=== PATIENT | male | born 1930 | race Caucasian/White ===

== ENCOUNTER 2018-07-29 19:17 | Inpatient (IN) ==
[2018-07-29 20:04] LABS: Bilirubin,Urine Negative (Negative); Clarity,Urine Slightly Cloudy (Clear); Color,Urine Yellow (Yellw/Straw); Glucose,Urine (UA) 100 mg/dL (Negative); Leukocyte Esterase,Urine Moderate (Negative); Nitrite,Urine Negative (Negative); PH,Urine 5.5 (5.0-8.5); Specific Gravity,Urine Greater/Equal 1.030 (1.002-1.035); Urobilinogen,Urine 0.2 mg/dL (Less than 2)
[2018-07-29 20:10] LABS: RBC,Urine 51-189 /hpf (0-3); WBC,Urine 21-50 /hpf (0-5)
[2018-07-29 20:11] LABS: Amorphous Sediment,Urine Few /hpf; Bacteria,Urine Few /hpf; Mucus,Urine Few /lpf (Occasional)
[2018-07-29] MEDS ORDERED: Morphine Inj 4 MG/ML Vial IV.PUSH ONE (22:33)
--- NOTE | 2018-07-29 22:44 | ED ---
HPI General Chief complaint: Abdominal Pain Stated complaint: LOWER ABD PAIN XTODAY Time Seen by Provider: 07/29/18 22:24 Source: patient and family Mode of arrival: ambulatory Limitations: no limitations History of Present Illness HPI narrative: 88-year-old male here with his for evaluation of abdominal pain. The patient reports sudden onset of abdominal pain at around 5:30 PM today. The pain is around his mid to lower abdomen, described as pressure, severe, constant, worse with movements and palpation. He has felt nauseous but has not vomited. He reports that yesterday he had several episodes of loose bowel movements. He is unsure if there was melena or hematochezia. He states that today he has been unable to have a bowel movement. History of appendectomy when he was a teenager. No other abdominal surgeries. No fevers or chills. No dysuria or hematuria. Related Data Home Medications Medication Instructions Recorded Confirmed amlodipine 10 mg PO DAILY 07/29/18 07/29/18 aspirin [Aspirin Low Dose] 81 mg PO DAILY 07/29/18 07/29/18 budesonide-formoterol [Symbicort] 2 puff INHALATION BID 07/29/18 07/29/18 cholecalciferol (vitamin D3) 1,000 unit PO DAILY 07/29/18 07/29/18 [Vitamin D3] dextran 70-hypromellose 1 drp OPHTHALMIC (EYE) Q12H PRN 07/29/18 07/29/18 [Artificial Tears (PF)] glipizide 10 mg PO BID 07/29/18 07/29/18 hydrochlorothiazide 25 mg PO DAILY 07/29/18 07/29/18 insulin glargine [Lantus U-100 10 unit SUBCUT DAILY 07/29/18 07/29/18 Insulin] loratadine 10 mg PO DAILY 07/29/18 07/29/18 lovastatin 10 mg PO DAILY 07/29/18 07/29/18 multivitamin with minerals 1 tab PO DAILY 07/29/18 07/29/18 valsartan 160 mg PO DAILY 07/29/18 07/29/18 Allergies Allergy/AdvReac Type Severity Reaction Status Date / Time lisinopril Allergy Severe Shortness Verified 07/30/18 00:15 of Breath simvastatin Allergy Intermediate muscle Verified 07/30/18 00:15 aches Review of Systems ROS: all other systems reviewed are negative [facility] Medical History Medical History Diabetes (Acute) Social History Social History Substance History: No History of Abuse Smoking Status: Former smoker Tobacco Type: Cigarettes How Often Do You Have a Drink Containing Alcohol: Monthly or less Recent Travel in [facility] within the Last 8 Weeks: No Recent Out of Country Travel within the Last 8 Weeks: No Exam Narrative Exam Narrative: GENERAL: Well-developed, well-nourished, comfortable, no acute distress. SKIN: Focused skin assessment warm/dry. No rash. HEAD: Atraumatic. Normocephalic. EYES: Pupils equal and round. No scleral icterus. No injection or drainage. ENT: Mucous membranes pink and moist. NECK: Trachea midline. No JVD. CARDIOVASCULAR: Regular rate and rhythm. RESPIRATORY: No accessory muscle use. Clear to auscultation. Breath sounds equal bilaterally. GASTROINTESTINAL: Abdomen soft, mild distention, moderate diffuse tenderness, no peritoneal signs, normal bowel sounds, large ventral hernia, no other hernias. RECTUM: Heme negative brown stool. : Normal exam. No swelling or masses. No hernias. No skin color changes. MUSCULOSKELETAL: No obvious deformities. No clubbing. No cyanosis. No edema. NEUROLOGICAL: Awake and alert. No obvious cranial nerve deficits. Motor grossly within normal limits. Normal speech. PSYCHIATRIC: Appropriate mood and affect; insight and judgment normal. Course Initial Documented Vital Signs Temperature 98.8 F 07/29/18 19:36 Pulse Rate 77 07/29/18 19:36 Respiratory Rate 18 07/29/18 19:36 Blood Pressure 181/81 H 07/29/18 19:36 Pulse Oximetry 96 07/29/18 19:36 Last Documented Vital Signs Temperature 98.8 F 07/29/18 19:36 Pulse Rate 90 07/30/18 01:00 Respiratory Rate 16 07/30/18 01:00 Blood Pressure 170/77 H 07/30/18 01:00 Pulse Oximetry 95 07/30/18 01:00 Sign Out Sign Out Data: Patient Sign Out occurred on 07/30/18 at 02:08. Patient's care was discussed, and care was transferred from Keith Pradhan MD to Mague Wells MD. Sign Out Comment: Follow-up with CT abdomen pelvis and disposition. Last updated by Keith Pradhan MD at 07/30/18 00:03 Post-Handoff Eval: The patient's case was checked out to me by Dr. Pradhan at the conclusion of his shift. Please see his complete history and physical. The patient was pending CT scan of the abdomen and pelvis. The patient presented with lower abdominal pain. The patient was noted to have a urinary tract infection. The patient required multiple doses of pain medication for improvement in his pain. The patient was noted to have a leukocytosis of 24.4. Given the patient's urinary tract infection, the patient was given Rocephin [address] scan of the abdomen and pelvis showed a 3 mm stone of the mid left ureter, causing mild obstructive uropathy, including perinephric and periureteral edema. Given the patient's leukocytosis there is a concern for infection with stone. The patient will be admitted to the hospital for continued evaluation and treatment. The patient's results were discussed with the patient, including the plan of care. I explained that further testing and/ or monitoring is indicated based on the patient's history, examination, and/ or laboratory findings. Therefore, I recommended admission for additional evaluation. The patient expressed understanding and was agreeable with this plan. The patient was admitted to the hospital in stable condition and sent to a bed under the care of the [facility] service. Medical Decision Making MDM Narrative Medical decision making narrative: UA was performed in triage and was resulted before the patient was brought back to an exam room. UA suggestive of UTI with moderately large occult blood, 51-189 RBCs, 21-50 WBCs, few WBC clumps, few bacteria, therefore the patient was given 1 g of IV Rocephin shortly after I evaluated him. CBC is remarkable for WBC 24.4 with 92% neutrophils. CMP is remarkable for BUN 35, creatinine 2.1, GFR 30 which is slightly worse than his baseline. Random glucose is 265. Lactic acid is 1.3. Patient was given 4 mg of IV morphine without any relief in his pain. He was then given 1 mg of IV Dilaudid with significant improvement in his pain. On reassessment he does have slight abdominal tenderness which is mainly over his left lower quadrant. There are no peritoneal signs. At approximately midnight at the end of my shift the patient was signed out to Dr. Wells to follow-up with CT abdomen pelvis and disposition. Medical Screen Exam Complete: Yes Emergency Medical Condition: Yes Differential Diagnosis Differential Diagnosis: Colitis, diverticulitis, UTI, cystitis, mesenteric ischemia Lab Data Result diagrams: 07/29/18 22:40 07/29/18 22:40 Lab Results 07/29/18 07/29/18 07/29/18 Range/Units 19:49 22:40 22:40 CBC w Diff WBC (4.0-11.0) th/mm3 RBC (4.50-5.90) mil/mm3 Hgb (13.0-17.0) gm/dL Hct (39.0-51.0) % MCV (80.0-100.0) fL MCH (27.0-34.0) pg MCHC (32.0-36.0) % RDW (11.6-17.2) % Plt Count (150-450) th/mm3 MPV (7.0-11.0) fL Neut % (Auto) (16.0-70.0) % Lymph % (Auto) (9.0-44.0) % [place] % (Auto) (0.0-8.0) % Eos % (Auto) (0.0-4.0) % Baso % (Auto) (0.0-2.0) % Neut # (Auto) (1.8-7.7) th/mm3 Lymph # (Auto) (1.0-4.8) th/mm3 [place] # (Auto) (0.0-0.9) th/mm3 Eos # (Auto) (0.0-0.4) th/mm3 Baso # (Auto) (0.0-0.2) th/mm3 WBC Differential Diff Scan Differential Comment Platelet Estimate (Normal) Platelet Morphology (Normal) RBC Morphology (Normal) PT 9.9 (9.8-11.6) sec INR 1.0 Ratio APTT 25.8 (24.3-30.1) sec Sodium (136-145) meq/L Potassium (3.5-5.1) meq/L Chloride (98-107) meq/L Carbon Dioxide (21.0-32.0) meq/L Anion Gap (5-15) meq/L BUN (7-18) mg/dL Creatinine (0.60-1.30) mg/dL Estimated GFR (>89) mL/min Random Glucose (74-106) mg/dL Lactic Acid 1.3 (0.4-2.0) mmol/L Calcium (8.5-10.1) mg/dL Magnesium (1.5-2.5) mg/dL Total Bilirubin (0.2-1.0) mg/dL AST (15-37) U/L ALT (12-78) U/L Alkaline Phosphatase (45-117) U/L Total Protein (6.4-8.2) g/dL Albumin (3.4-5.0) g/dL Lipase (73-393) U/L Urine Color Yellow (Yellw/Straw) Urine Clarity Slightly cloudy (Clear) Urine pH 5.5 (5.0-8.5) Ur Specific [place] Greater/equal 1.030 (1.002-1.035) Urine Protein 100 H (Neg-Trace) mg/dL Urine Glucose (UA) 100 H (Negative) mg/dL Urine Ketones Negative (Negative) mg/dL Urine Occult Blood Large H (Negative) Urine Nitrate Negative (Negative) Urine Bilirubin Negative (Negative) Urine Urobilinogen 0.2 (Less than 2) mg/dL Ur Leukocyte Esterase Moderate H (Negative) Urine RBC 51-189 H (0-3) /hpf Urine WBC 21-50 H (0-5) /hpf Urine WBC Clumps Few H (None) Amorphous Sediment Few H (None) /hpf Urine Bacteria Few H (None) /hpf Urine Mucus Few H (Occasional) /lpf Micro UA Comment Culture indicated Ur Microscopic Review Microscopic reviewed Urine Culture Comments Culture indicated 07/29/18 07/29/18 Range/Units 22:40 22:40 CBC w Diff Slide review pending WBC 24.4 H (4.0-11.0) th/mm3 RBC 4.60 (4.50-5.90) mil/mm3 Hgb 15.3 (13.0-17.0) gm/dL Hct 44.6 (39.0-51.0) % MCV 96.9 (80.0-100.0) fL MCH 33.3 (27.0-34.0) pg MCHC 34.4 (32.0-36.0) % RDW 15.8 (11.6-17.2) % Plt Count 380 (150-450) th/mm3 MPV 9.2 (7.0-11.0) fL Neut % (Auto) 91.7 H (16.0-70.0) % Lymph % (Auto) 5.3 L (9.0-44.0) % [place] % (Auto) 1.8 (0.0-8.0) % Eos % (Auto) 0.5 (0.0-4.0) % Baso % (Auto) 0.7 (0.0-2.0) % Neut # (Auto) 22.4 H (1.8-7.7) th/mm3 Lymph # (Auto) 1.3 (1.0-4.8) th/mm3 [place] # (Auto) 0.4 (0.0-0.9) th/mm3 Eos # (Auto) 0.1 (0.0-0.4) th/mm3 Baso # (Auto) 0.2 (0.0-0.2) th/mm3 WBC Differential . Diff Scan Auto diff confirmed Differential Comment . Platelet Estimate Normal (Normal) Platelet Morphology Normal (Normal) RBC Morphology Normal (Normal) PT (9.8-11.6) sec INR Ratio APTT (24.3-30.1) sec Sodium 136 (136-145) meq/L Potassium 4.8 (3.5-5.1) meq/L Chloride 106 (98-107) meq/L Carbon Dioxide 22.0 (21.0-32.0) meq/L Anion Gap 8 (5-15) meq/L BUN 35 H (7-18) mg/dL Creatinine 2.10 H (0.60-1.30) mg/dL Estimated GFR 30 L (>89) mL/min Random Glucose 265 H (74-106) mg/dL Lactic Acid (0.4-2.0) mmol/L Calcium 8.8 (8.5-10.1) mg/dL Magnesium 2.3 (1.5-2.5) mg/dL Total Bilirubin 0.6 (0.2-1.0) mg/dL AST 10 L (15-37) U/L ALT 22 (12-78) U/L Alkaline Phosphatase 108 (45-117) U/L Total Protein 7.7 (6.4-8.2) g/dL Albumin 4.1 (3.4-5.0) g/dL Lipase 89 (73-393) U/L Urine Color (Yellw/Straw) Urine Clarity (Clear) Urine pH (5.0-8.5) Ur Specific [place] (1.002-1.035) Urine Protein (Neg-Trace) mg/dL Urine Glucose (UA) (Negative) mg/dL Urine Ketones (Negative) mg/dL Urine Occult Blood (Negative) Urine Nitrate (Negative) Urine Bilirubin (Negative) Urine Urobilinogen (Less than 2) mg/dL Ur Leukocyte Esterase (Negative) Urine RBC (0-3) /hpf Urine WBC (0-5) /hpf Urine WBC Clumps (None) Amorphous Sediment (None) /hpf Urine Bacteria (None) /hpf Urine Mucus (Occasional) /lpf Micro UA Comment Ur Microscopic Review Urine Culture Comments Imaging Data Radiologist's impression: Abdomen/Pelvis CT 07/30/18 00:12 CONCLUSION: 1. 3 mm stone of the mid left ureter causing mild obstructive uropathy, including perinephric and periureteral edema. 2. Nonobstructing stone and benign appearing cyst seen of the left kidney lower pole as well. 3. No organized fluid. No abscess. 4. Cholelithiasis. 5. Aortoiliac atherosclerosis. No aneurysm. Discharge Plan Discharge Disposition Patient Disposition: 30 Still Patient Discharge Details Diagnosis: Urinary tract infection, Calculus, ureteral, Leukocytosis Physicians Team ED Provider: Mague Wells Primary Care Provider: [facility] /Orders / Referrals /Forms Prescriptions: No Action insulin glargine [Lantus U-100 Insulin] 100 unit/mL Solution 10 unit SUBCUT DAILY RF: 0 glipizide 10 mg Tablet 10 mg PO BID RF: 0 lovastatin 10 mg Tablet 10 mg PO DAILY RF: 0 aspirin [Aspirin Low Dose] 81 mg Tablet,Delayed Release (Dr/Ec) 81 mg PO DAILY RF: 0 multivitamin with minerals Tablet Extended Release 1 tab PO DAILY RF: 0 amlodipine 10 mg Tablet 10 mg PO DAILY RF: 0 hydrochlorothiazide 25 mg Tablet 25 mg PO DAILY RF: 0 valsartan 160 mg Tablet 160 mg PO DAILY RF: 0 cholecalciferol (vitamin D3) [Vitamin D3] 1,000 unit Capsule 1,000 unit PO DAILY RF: 0 dextran 70-hypromellose [Artificial Tears (PF)] Dropperette 1 drp OPHTHALMIC (EYE) Q12H PRN (Reason: Dry Eye(S)) RF: 0 budesonide-formoterol [Symbicort] 160-4.5 mcg/actuation Hfa Aerosol Inhaler 2 puff INHALATION BID RF: 0 loratadine 10 mg Capsule 10 mg PO DAILY RF: 0 Discharge Interventions Interventions: Vital Signs Last Done: 07/30/18 01:00 Status ED Status: With Doctor
[2018-07-29] MEDS ORDERED: Sod Chloride 0.9% Inj 1,000 ML IV.CONT SCH (22:45)
[2018-07-29 22:57] LABS: Baso # (Auto) 0.2 th/mm3 (0.0-0.2); Baso % (Auto) 0.7 % (0.0-2.0); Eos # (Auto) 0.1 th/mm3 (0.0-0.4); Eos % (Auto) 0.5 % (0.0-4.0); Hematocrit 44.6 % (39.0-51.0); Hemoglobin 15.3 gm/dL (13.0-17.0); Lymph # (Auto) 1.3 th/mm3 (1.0-4.8); Lymph % (Auto) 5.3 % (9.0-44.0); Mean Corpuscular HGB Conc 34.4 % (32.0-36.0); Mean Corpuscular Hemoglobin 33.3 pg (27.0-34.0); Mean Corpuscular Volume 96.9 fL (80.0-100.0); Mean Platelet Volume 9.2 fL (7.0-11.0); Mono # (Auto) 0.4 th/mm3 (0.0-0.9); Mono % (Auto) 1.8 % (0.0-8.0); Neut # (Auto) 22.4 th/mm3 (1.8-7.7); Neut % (Auto) 91.7 % (16.0-70.0); Platelet Count 380 th/mm3 (150-450); Red Cell Distribution Width 15.8 % (11.6-17.2); White Blood Count 24.4 th/mm3 (4.0-11.0)
[2018-07-29 23:03] LABS: Chloride 106 meq/L (98-107); Potassium 4.8 meq/L (3.5-5.1); Sodium 136 meq/L (136-145)
[2018-07-29 23:07] LABS: Albumin 4.1 g/dL (3.4-5.0); Anion Gap 8 meq/L (5-15); Blood Urea Nitrogen 35 mg/dL (7-18); Calcium 8.8 mg/dL (8.5-10.1); Glucose,Random 265 mg/dL (74-106); Lipase 89 U/L (73-393); Magnesium 2.3 mg/dL (1.5-2.5)
[2018-07-29 23:09] LABS: Activated Partial Thrombo Time 25.8 sec (24.3-30.1); Prothrombin Time 9.9 sec (9.8-11.6)
[2018-07-29 23:10] LABS: Alanine Aminotransferase 22 U/L (12-78); Aspartate Aminotransferase 10 U/L (15-37); Glomerular Filtration Rate 30 mL/min (>89)
[2018-07-29] MEDS ORDERED: HYDROmorphone PF Inj 2 MG/ML Vial IV.PUSH ONE (23:11)
[2018-07-29 23:12] LABS: Total Protein 7.7 g/dL (6.4-8.2)
[2018-07-29 23:13] LABS: Alkaline Phosphatase 108 U/L (45-117)
[2018-07-29 23:14] LABS: Platelet Estimate Normal (Normal); Platelet Morphology Normal (Normal); RBC Morphology Normal (Normal)
[2018-07-30] MEDS ORDERED: Diatrizoate Meglum/Diatrizoate Sod Liq 9 ML UDC PO ONE (00:12)
--- NOTE | 2018-07-30 01:53 | CT ---
EXAM DATE: 07/30/2018 1:40 AM EDT AGE/SEX: 88 years / Male INDICATIONS: Lower abdominal pain. Evaluate for diverticulitis versus abscess. CLINICAL DATA: This is the patient's initial encounter. Patient reports that signs and symptoms have been present for 2 days and indicates a pain score of 10/10. MEDICAL/SURGICAL HISTORY: Diabetes. Appendectomy. RADIATION DOSE: 16.68 CTDI (mGy) COMPARISON: No prior exams available for comparison. TECHNIQUE: Multiple contiguous axial images were obtained through the abdomen. Images were obtained using multiple row detector helical technique. Using automated exposure control and adjustment of the mA and/or kV according to patient size, radiation dose was kept as low as reasonably achievable to o btain optimal diagnostic quality images. DICOM format image data is available electronically for rev iew and comparison. FINDINGS: There is a 3 mm stone in the mid left ureter at the level of L5. There is mild hydronephrosis and hyd roureter. There is left perinephric and periureteral edema. There is no organized fluid. Approximatel y 4 mm nonobstructing stone seen of the left lower pole. There is also a 1 cm benign appearing left l ower pole cyst. Noncontrast appearance of the right kidney is within normal limits. Noncontrast appearance of the liver, spleen, pancreas and adrenal glands is within normal limits. No obstruction or acute inflammatory changes are seen of the gastrointestinal tract. No free or loculate d fluid. No lymphadenopathy. No free air. Tortuosity and atherosclerosis seen of the abdominal aorta and iliac arteries. No aneurysm. Numerous tiny gravel-like stones are seen dependently within the gallbladder. No duct stone or ductal dilatation seen. Radiation seeds are seen in the prostate. Mild atelectasis of the visualized lung bases. No acute bony abnormalities are demonstrated. CONCLUSION: 1. 3 mm stone of the mid left ureter causing mild obstructive uropathy, including perinephric and pe riureteral edema. 2. Nonobstructing stone and benign appearing cyst seen of the left kidney lower pole as well. 3. No organized fluid. No abscess. 4. Cholelithiasis. 5. Aortoiliac atherosclerosis. No aneurysm. Electronically signed by: Sarkis Hicks MD 07/30/2018 1:51 AM EDT
[2018-07-30] MEDS ORDERED: Acetaminophen 325 MG Tablet PO PRN (02:41)
[2018-07-30] MEDS ORDERED: HYDROmorphone PF Inj 0.5 MG/0.5 ML Syringe IV.PUSH PRN (02:44)
[2018-07-30] MEDS: Sod Chloride 0.9% Inj 1,000 ML IV.CONT SCH ×3 (03:09→22:32)
[2018-07-30] MEDS ORDERED: HYDROmorphone PF Inj 2 MG/ML Vial IV.PUSH PRN (03:39)
--- NOTE | 2018-07-30 06:38 | CT ---
EXAM DATE: 07/30/2018 6:33 AM EDT AGE/SEX: 88 years / Male INDICATIONS: Altered mental status. Numbness in hands. CLINICAL DATA: This is the patient's initial encounter. Patient reports that signs and symptoms have been present for 1 day and indicates a pain score of 0/10. MEDICAL/SURGICAL HISTORY: Diabetes. None. RADIATION DOSE: 57.80 CTDI (mGy) COMPARISON: [facility], CT BRAIN W/O CONTRAST, 12/05/2013. . TECHNIQUE: CT of the head without contrast. Using automated exposure control and adjustment of the mA and/or kV according to patient size, radiation dose was kept as low as reasonably achievable to ob tain optimal diagnostic quality images. DICOM format image data is available electronically for revi ew and comparison. FINDINGS: Cerebrum: The ventricles are normal for age. No evidence of midline shift, mass lesion, hemorrhage or acute infarction. No extraaxial fluid collections are seen. Posterior Fossa: The cerebellum and brainstem are intact. The 4th ventricle is midline. The cerebe llopontine angle is unremarkable. Extracranial: Mucoperiosteal thickening seen of the visualized ethmoid and maxillary air cells. Skull: The calvaria is intact. No evidence of skull fracture. CONCLUSION: 1. No acute intracranial abnormality demonstrated. 2. Chronic appearing ethmoid and maxillary sinusitis. . Electronically signed by: Sarkis Hicks MD 07/30/2018 6:36 AM EDT
[2018-07-30] MEDS: Budesonide-Formoterol 160/4.5 MCG 6 GM Inhaler INH SCH ×2 (09:40→20:28)
[2018-07-30] MEDS: amLODIPine 10 MG Tablet PO SCH (09:41)
--- NOTE | 2018-07-30 09:59 | P.HPIM ---
History of Present Illness Primary Care Physician: [facility] History of Present Illness: 88-year-old male with history of IDDM, HTN, HLD, prostate cancer, and CKD presented on 07/29 with abdominal pain. The patient states that yesterday evening he noted sudden onset of mid and left lower quadrant abdominal pain that was severe and constant. Pain is exacerbated by movement. He states he felt a little nauseous but had no vomiting but does note he had several episodes of diarrhea 2 days ago as well. He denies black or bloody stools. He denies any dysuria, urgency, hesitancy, or hematuria. On my evaluation this morning (07/30), the patient was noted to have some sort of jaw tremor oropharyngeal dystonic reaction. This was reported by nursing at around 5:30 AM this morning. Because of the movements the patient has been having difficulty speaking fluently. He denies any confusion, blurry vision, headache, paresthesias, or unilateral weakness. His was present at the bedside states that this is new for him. The patient is unsure if it is a reaction from the Rocephin he received. He does not take any antipsychotics or have been given any in the hospital. PMH: IDDM, HTN, HLD, prostate CA, CKD (unknown stage or baseline creatinine) Surgical hx: parotid gland tumor removed, prostate seed Family hx: sister with DM Social hx: lives with , occasionally drinks a beer, quit smoking 1978 Inpatient Certification I certify that the inpatient services were ordered in accordance with Medicare regulations governing the order. This includes certification that hospital inpatient services are reasonable and necessary and in the case of services not specified as inpatient-only under 42 CFR 419.22(n), that they are appropriately provided as inpatient services in accordance to with the 2-midnight benchmark under 43 CFR 412.3(e) Estimated LOS: 2-3 days Plans after D/C: home vs. C - Diagnosis (1) Obstructive uropathy (2) Urinary tract infection (3) Calculus, ureteral Review of Systems All other systems reviewed negative except as stated in HPI PMFSH - History History Provided By: Patient - Medical History Medical History: Medical History (Last Updated 07/30/18 @ 13:49 by Mague Estrada MD) CKD (chronic kidney disease) Diabetes Hyperlipidemia Hypertension Prostate cancer - Family History Family History: Family History (Last Updated 07/30/18 @ 13:49 by Mague Estrada MD) Sister Diabetes - Social History I have reviewed the patient's Social History: Yes - Tobacco History Second Hand Smoke Exposure: No Tobacco Use In Past 30 Days: No Smoking Status: Never smoker Tobacco Type: Cigarettes - Alcohol History How Often Do You Have a Drink Containing Alcohol: Never - Substance Use History Substance History: No History of Abuse - Travel History Recent Travel in the [place] Within the Last 8 Weeks: No Recent Travel Out of the Country Within the Last 8 Weeks: No - Immunization History Tetanus Immunization: Unsure Medications and Allergies Active Medications: Active Medications Acetaminophen (Tylenol) 650 mg PO Q4H PRN PRN Reason: Temp > 100.4 Amlodipine Besylate (Norvasc) 10 mg PO DAILY [facility] Last Admin: 07/30/18 09:41 Dose: 10 mg Aspirin (Ecotrin) 81 mg PO DAILY [facility] Last Admin: 07/30/18 09:43 Dose: Not Given Budesonide/Formoterol Fumarate (Symbicort 160/4.5 Mcg Inh) 2 puff INH BID [facility] Last Admin: 07/30/18 09:40 Dose: 2 puff Clonidine HCl (Catapres) 0.1 mg PO Q6H PRN PRN Reason: SBP>180, DBP>100, HR>65 Last Admin: 07/30/18 07:59 Dose: 0.1 mg Hydromorphone HCl (Dilaudid Pf Inj) 1 mg IV.PUSH Q4H PRN PRN Reason: pain 1 to 10 Sodium Chloride (Ns Inj) 1,000 mls @ 100 mls/hr IV.CONT .Q10H [facility] Last Infusion: 07/30/18 03:20 Dose: 100 mls/hr Ceftriaxone Sodium 1,000 mg/ (Sodium Chloride) 100 mls @ 200 mls/hr IV.SIG Q24H [facility] Last Admin: 07/30/18 09:43 Dose: Not Given Ondansetron HCl (Zofran Inj) 4 mg IV.PUSH Q6H PRN PRN Reason: NAUSEA OR VOMITING Pravastatin Sodium (Pravachol) 10 mg PO DAILY [facility] Last Admin: 07/30/18 09:41 Dose: 10 mg Sodium Chloride (Ns Flush) 2 ml IV.FLUSH PRN PRN PRN Reason: FLUSH AFTER USING IV ACCESS Allergies Allergy/AdvReac Type Severity Reaction Status Date / Time lisinopril Allergy Severe Shortness Verified 07/30/18 00:15 of Breath simvastatin Allergy Intermediate muscle Verified 07/30/18 00:15 aches Home Medications Medication Instructions Recorded Confirmed Type amlodipine 10 mg PO DAILY 07/29/18 07/29/18 History aspirin [Aspirin Low Dose] 81 mg PO DAILY 07/29/18 07/29/18 History budesonide-formoterol [Symbicort] 2 puff INHALATION BID 07/29/18 07/29/18 History cholecalciferol (vitamin D3) 1,000 unit PO DAILY 07/29/18 07/29/18 History [Vitamin D3] dextran 70-hypromellose 1 drp OPHTHALMIC (EYE) Q12H PRN 07/29/18 07/29/18 History [Artificial Tears (PF)] glipizide 10 mg PO BID 07/29/18 07/29/18 History hydrochlorothiazide 25 mg PO DAILY 07/29/18 07/29/18 History insulin glargine [Lantus U-100 10 unit SUBCUT DAILY 07/29/18 07/29/18 History Insulin] loratadine 10 mg PO DAILY 07/29/18 07/29/18 History lovastatin 10 mg PO DAILY 07/29/18 07/29/18 History multivitamin with minerals 1 tab PO DAILY 07/29/18 07/29/18 History valsartan 160 mg PO DAILY 07/29/18 07/29/18 History Exam Vital signs: Vital Signs 07/29/18 19:36 07/29/18 23:00 07/30/18 00:00 Temperature 98.8 F Pulse Rate 77 83 84 Respiratory Rate 18 17 17 Blood Pressure 181/81 H 183/83 H 163/73 H Pulse Oximetry 96 96 96 07/30/18 00:20 07/30/18 01:00 07/30/18 02:42 Temperature Pulse Rate 90 80 Respiratory Rate 18 16 18 Blood Pressure 170/77 H 170/70 H Pulse Oximetry 95 95 07/30/18 04:00 07/30/18 05:37 07/30/18 06:06 Temperature 97.3 F L Pulse Rate 93 H 94 H Respiratory Rate 18 18 Blood Pressure 190/93 H 172/93 H Pulse Oximetry 95 07/30/18 08:00 Temperature 97.8 F Pulse Rate 74 Respiratory Rate 20 Blood Pressure 191/95 H Pulse Oximetry 97 Intake & Output 07/29/18 07/30/18 07/30/18 18:59 06:59 18:59 Intake Total 300 / 300 0 / 0 Output Total 0 / 0 Balance 300 / 300 0 / 0 Weight 82 kg Intake: IV 100 / 100 Rocephin Inj 1,000 MG In NS Inj 100 / 100 100 ML @ 200 mls/hr IV.SIG ONCE ONE Rx#:[id number] Oral 200 / 200 0 / 0 Output: Urine 0 / 0 Other: # Voids 1 Date of Last Bowel Movement 07/26/18 Weight On Admission 82 kg Narrative: GENERAL: WN, WD elderly male resting in bed in NAD. SKIN: Warm and dry without rash or jaundice. HEENT: AT/NC. EOMI. Pupils equal and round. MMM. NECK: Supple no tender LAD or JVD. HEART: RRR no m/r/g. LUNGS: CTAB without wheezes or crackles. ABDOMEN: +BS, soft, ND, TTP over palpation EXTREMITIES: No LE edema. 2+ pedal pulses. NEURO: Awake and alert. Spasticity of oropharyngeal and neck muscles with some dystonic appearing movements and tremors. UE and LE strength 5/5. No pronator drift. CN II-XII intact. Results - Labs CBC & Chem 7: 07/30/18 10:40 07/30/18 10:40 Labs: Short CBC 07/29/18 Range/Units 22:40 WBC 24.4 H (4.0-11.0) th/mm3 Hgb 15.3 (13.0-17.0) gm/dL Hct 44.6 (39.0-51.0) % Plt Count 380 (150-450) th/mm3 BMP 07/29/18 22:40 Sodium 136 Potassium 4.8 Chloride 106 Carbon Dioxide 22.0 BUN 35 H Creatinine 2.10 H Calcium 8.8 Liver Function 07/29/18 Range/Units 22:40 Total Bilirubin 0.6 (0.2-1.0) mg/dL AST 10 L (15-37) U/L ALT 22 (12-78) U/L Alkaline Phosphatase 108 (45-117) U/L Albumin 4.1 (3.4-5.0) g/dL Urine 07/29/18 Range/Units 19:49 Urine Color Yellow (Yellw/Straw) Urine Clarity Slightly cloudy (Clear) Urine pH 5.5 (5.0-8.5) Ur Specific [place] Greater/equal 1.030 (1.002-1.035) Urine Protein 100 H (Neg-Trace) mg/dL Urine Glucose (UA) 100 H (Negative) mg/dL - Imaging Impressions Abdomen/Pelvis CT 07/30/18 00:12 CONCLUSION: 1. 3 mm stone of the mid left ureter causing mild obstructive uropathy, including perinephric and periureteral edema. 2. Nonobstructing stone and benign appearing cyst seen of the left kidney lower pole as well. 3. No organized fluid. No abscess. 4. Cholelithiasis. 5. Aortoiliac atherosclerosis. No aneurysm. Head CT 07/30/18 06:00 CONCLUSION: 1. No acute intracranial abnormality demonstrated. 2. Chronic appearing ethmoid and maxillary sinusitis. . Caprini VTE Risk Assessment Caprini VTE Risk Assessment: Moderate/High Risk (score >= 2) Caprini Risk Assessment Model: Point Value = 1 Point Value = 2 Point Value = 3 Point Value = 5 Age 41-60 Minor surgery BMI > 25 kg/m2 Swollen legs Varicose veins or History of unexplained or recurrent spontaneous Oral contraceptives or hormone replacement Sepsis (< 1 month) Serious lung disease, including pneumonia (< 1 month) Abnormal pulmonary function Acute myocardial infarction Congestive heart failure (< 1 month) History of inflammatory bowel disease Medical patient at bed rest Age 61-74 Arthroscopic surgery Major open surgery (> 45 min) Laparoscopic surgery (> 45 min) Malignancy Confined to bed (> 72 hours) Immobilizing plaster cast Central venous access Age >= 75 History of VTE Family history of VTE Factor V Leiden Prothrombin [id number] Lupus anticoagulant Anticardiolipin antibodies Elevated serum homocysteine Heparin-induced thrombocytopenia Other congenital or acquired thrombophilia Stroke (< 1 month) Elective arthroplasty Hip, pelvis, or leg fracture Acute spinal cord injury (< 1 month) Prophylaxis Regimen: Total Risk Factor Score Risk Level Prophylaxis Regimen 0-1 Low Early ambulation 2 Moderate Order ONE of the following: *Sequential Compression Device (SCD) *Heparin 5000 units SQ BID 3-4 Higher Order ONE of the following medications: *Heparin 5000 units SQ TID *Enoxaparin/Lovenox 40 mg SQ daily (WT < 150 kg, CrCl > 30 mL/min) *Enoxaparin/Lovenox 30 mg SQ daily (WT < 150 kg, CrCl > 10-29 mL/min) *Enoxaparin/Lovenox 30 mg SQ BID (WT < 150 kg, CrCl > 30 mL/min) AND/OR *Sequential Compression Device (SCD) 5 or more Highest Order ONE of the following medications: *Heparin 5000 units SQ TID (Preferred with Epidurals) *Enoxaparin/Lovenox 40 mg SQ daily (WT < 150 kg, CrCl > 30 mL/min) *Enoxaparin/Lovenox 30 mg SQ daily (WT < 150 kg, CrCl > 10-29 mL/min) *Enoxaparin/Lovenox 30 mg SQ BID (WT < 150 kg, CrCl > 30 mL/min) AND *Sequential Compression Device (SCD) Assessment and Plan - Assessment (1) Obstructive uropathy Code(s): N13.9 - Obstructive and reflux uropathy, unspecified Status: Acute (2) Urinary tract infection Code(s): N39.0 - Urinary tract infection, site not specified Status: Acute (3) Calculus, ureteral Code(s): N20.1 - Calculus of ureter Status: Acute - Plan 88-year-old male with history of IDDM, HTN, HLD, prostate cancer, and CKD presented on 07/29 with abdominal pain. U/A with evidence of infection and CT A/P showed left ureteral stone with mild obstructive uropathy. 1. UTI - U/A with leukocyte esterase, protein, blood, bacteria - Urine culture pending - White count 24.4 - No fever or lactic acidosis, not meeting sepsis criteria - Was started on Rocephin but then patient developed an oropharyngeal dystonic type reaction so antibiotic was changed to Zosyn - Continue to follow cultures 2. Urolithiasis with mild obstructive uropathy - CT A/P with 3 mm left ureteral stent with associated mild obstructive uropathy - IV fluids - Pain control - Antiemetics - Flomax - Given some degree of obstruction and associated UTI will consult urology 3. Involuntary mouth movements, dystonia, jaw tremors - Began around 5:30AM this morning, had received Dilaudid and Rocephin prior - Unlikely to see that kind of reaction with Rocephin but possible with Dilaudid - D/C Dilaudid, change Rocephin to Zosyn - ST for swallow eval - Neuro consulted - Stat CT head done this morning negative - MRI is down - Check EEG 4. IDDM - SSI per protocol 5. HTN - BPs running high - Resume home amlodipine - Holding home ARB and thiazide in light of possible ALY - Start hydralazine - Clonidine PRN - Continue to monitor and adjust meds as needed 6. CKD - Unsure of baseline therefore will hold home ARB and thiazide diuretic in case there is an acute injury component - Avoid nephrotoxic agents - Monitor renal function 7. HLD - Resume home statin DVT prophylaxis: heparin Code Status: FULL Discussed Condition With: Patient and his Discharge Planning: Pending further urologic and neurologic evaluation and clinical improvement H&P: Quality - VTE Deep Vein Thrombosis/Pulmonary Embolism Present on Admission: No (2) Urinary tract infection Qualifiers: Urinary tract infection type: site unspecified Hematuria presence: with hematuria Qualified Code(s): N39.0 - Urinary tract infection, site not specified; R31.9 - Hematuria, unspecified
[2018-07-30 11:10] LABS: Baso # (Auto) 0.1 th/mm3 (0.0-0.2); Baso % (Auto) 0.3 % (0.0-2.0); Eos # (Auto) 0.1 th/mm3 (0.0-0.4); Eos % (Auto) 0.4 % (0.0-4.0); Hematocrit 43.7 % (39.0-51.0); Hemoglobin 15.4 gm/dL (13.0-17.0); Lymph # (Auto) 1.4 th/mm3 (1.0-4.8); Lymph % (Auto) 4.8 % (9.0-44.0); Mean Corpuscular HGB Conc 35.3 % (32.0-36.0); Mean Corpuscular Volume 96.4 fL (80.0-100.0); Mean Platelet Volume 9.5 fL (7.0-11.0); Mono # (Auto) 1.3 th/mm3 (0.0-0.9); Mono % (Auto) 4.7 % (0.0-8.0); Neut # (Auto) 25.4 th/mm3 (1.8-7.7); Neut % (Auto) 89.8 % (16.0-70.0); Platelet Count 409 th/mm3 (150-450); Red Blood Count 4.53 mil/mm3 (4.50-5.90); Red Cell Distribution Width 15.4 % (11.6-17.2); White Blood Count 28.3 th/mm3 (4.0-11.0)
[2018-07-30 11:19] LABS: Potassium 4.5 meq/L (3.5-5.1)
[2018-07-30 11:21] LABS: Calcium 8.5 mg/dL (8.5-10.1)
[2018-07-30 11:22] LABS: Carbon Dioxide 23.9 meq/L (21.0-32.0)
[2018-07-30] MEDS ORDERED: Dextrose 50% in Water 50 ML Vial IV.PUSH PRN (13:38)
[2018-07-30] MEDS: Morphine Sulfate Inj 8 MG/ML Vial IV.PUSH PRN (13:39)
--- NOTE | 2018-07-30 14:50 | P.CONURO ---
History of Present Illness Service: Urology Consult date: 07/30/18 Requesting Physician: Mague Estrada Reason for Consult: 3mm ureteral stone Primary Care Provider: [facility] History of Present Illness: 88-year-old male with history of IDDM, HTN, HLD, prostate cancer, and CKD presented on 07/29 with abdominal pain. The patient states that yesterday evening he noted sudden onset of mid and left lower quadrant abdominal pain that was severe and constant. Pain is exacerbated by movement. He states he felt a little nauseous but had no vomiting but does note he had several episodes of diarrhea 2 days ago as well. He denies black or bloody stools. He denies any dysuria, urgency, hesitancy, or hematuria. CT scan was c/w left 4mm renal stone and 3mm left mid ureteral stone with mild hydro. urology consulted He has + leukocytosis and elevated Cr 2.3 but has CKD. UC is pending. no fever. no N/V. he is on IV fluids, antbx and flomax. Denies any pain now but recently had an injection of pain meds Review of Systems All other systems reviewed negative except as stated in HPI PMFSH - History History Provided By: Patient - Medical History Medical History: Medical History (Last Reviewed 07/30/18 @ 14:38 by Shahram Andrade) CKD (chronic kidney disease) Diabetes Hyperlipidemia Hypertension Prostate cancer - Family History Family History: Family History (Last Updated 07/30/18 @ 13:49 by Mague Estrada MD) Sister Diabetes - Tobacco History Second Hand Smoke Exposure: No Tobacco Use In Past 30 Days: No Smoking Status: Never smoker Tobacco Type: Cigarettes - Alcohol History How Often Do You Have a Drink Containing Alcohol: Never - Substance Use History Substance History: No History of Abuse - Travel History Recent Travel in the [place] Within the Last 8 Weeks: No Recent Travel Out of the Country Within the Last 8 Weeks: No - Immunization History Tetanus Immunization: Unsure Medications and Allergies Active Medications: Active Medications Acetaminophen (Tylenol) 650 mg PO Q4H PRN PRN Reason: Temp > 100.4 Amlodipine Besylate (Norvasc) 10 mg PO DAILY [facility] Last Admin: 07/30/18 09:41 Dose: 10 mg Aspirin (Ecotrin) 81 mg PO DAILY [facility] Last Admin: 07/30/18 09:43 Dose: Not Given Budesonide/Formoterol Fumarate (Symbicort 160/4.5 Mcg Inh) 2 puff INH BID [facility] Last Admin: 07/30/18 09:40 Dose: 2 puff Clonidine HCl (Catapres) 0.1 mg PO Q6H PRN PRN Reason: SBP>180, DBP>100, HR>65 Last Admin: 07/30/18 07:59 Dose: 0.1 mg Dextrose (D50w Vial) 50 ml IV.PUSH UNSCH PRN PRN Reason: PER HYPOGLYCEMIA PROTOCOL Glucagon (Glucagon Inj) 1 mg OTHER PRN PRN PRN Reason: for Hypoglycemia Protocol Hydralazine HCl (Apresoline) 25 mg PO TID ELAN Sodium Chloride (Ns Inj) 1,000 mls @ 100 mls/hr IV.CONT .Q10H [facility] Last Infusion: 07/30/18 13:11 Dose: Infused Piperacillin/Tazobactam/Dextrose (Zosyn 3.375 Gm Premix) 50 mls @ 100 mls/hr IV.SIG Q6H [facility] Insulin Aspart (Novolog Insulin Correctional Sugar Inj) 0 unit SQ ACHS ELAN; Protocol Morphine Sulfate (Morphine Inj) 5 mg IV.PUSH Q4H PRN PRN Reason: PAIN SCALE 6 TO 10 Last Admin: 07/30/18 13:39 Dose: 5 mg Ondansetron HCl (Zofran Inj) 4 mg IV.PUSH Q6H PRN PRN Reason: NAUSEA OR VOMITING Pravastatin Sodium (Pravachol) 10 mg PO DAILY [facility] Last Admin: 07/30/18 09:41 Dose: 10 mg Sodium Chloride (Ns Flush) 2 ml IV.FLUSH PRN PRN PRN Reason: FLUSH AFTER USING IV ACCESS Tamsulosin HCl (Flomax) 0.4 mg PO DAILY [facility] Allergies Allergy/AdvReac Type Severity Reaction Status Date / Time lisinopril Allergy Severe Shortness Verified 07/30/18 00:15 of Breath simvastatin Allergy Intermediate muscle Verified 07/30/18 00:15 aches Home Medications Medication Instructions Recorded Confirmed Type amlodipine 10 mg PO DAILY 07/29/18 07/29/18 History aspirin [Aspirin Low Dose] 81 mg PO DAILY 07/29/18 07/29/18 History budesonide-formoterol [Symbicort] 2 puff INHALATION BID 07/29/18 07/29/18 History cholecalciferol (vitamin D3) 1,000 unit PO DAILY 07/29/18 07/29/18 History [Vitamin D3] dextran 70-hypromellose 1 drp OPHTHALMIC (EYE) Q12H PRN 07/29/18 07/29/18 History [Artificial Tears (PF)] glipizide 10 mg PO BID 07/29/18 07/29/18 History hydrochlorothiazide 25 mg PO DAILY 07/29/18 07/29/18 History insulin glargine [Lantus U-100 10 unit SUBCUT DAILY 07/29/18 07/29/18 History Insulin] loratadine 10 mg PO DAILY 07/29/18 07/29/18 History lovastatin 10 mg PO DAILY 07/29/18 07/29/18 History multivitamin with minerals 1 tab PO DAILY 07/29/18 07/29/18 History valsartan 160 mg PO DAILY 07/29/18 07/29/18 History Physical Exam Vital Signs - 24 hr 07/29/18 19:36 07/29/18 23:00 07/30/18 00:00 Temperature 98.8 F Pulse Rate 77 83 84 Respiratory Rate 18 17 17 Blood Pressure 181/81 H 183/83 H 163/73 H Pulse Oximetry 96 96 96 07/30/18 00:20 07/30/18 01:00 07/30/18 02:42 Temperature Pulse Rate 90 80 Respiratory Rate 18 16 18 Blood Pressure 170/77 H 170/70 H Pulse Oximetry 95 95 07/30/18 04:00 07/30/18 05:37 07/30/18 06:06 Temperature 97.3 F L Pulse Rate 93 H 94 H Respiratory Rate 18 18 Blood Pressure 190/93 H 172/93 H Pulse Oximetry 95 07/30/18 08:00 07/30/18 12:00 Temperature 97.8 F 98.7 F Pulse Rate 74 77 Respiratory Rate 20 20 Blood Pressure 191/95 H 175/81 H Pulse Oximetry 97 96 Physical Exam: GENERAL: This is a well-nourished, well-developed patient, in no apparent distress. SKIN: No rashes, ecchymoses or lesions. Cool and dry. CARDIOVASCULAR: Regular rate and rhythm without murmurs, gallops, or rubs. RESPIRATORY: Clear to auscultation. Breath sounds equal bilaterally. No wheezes , rales, or rhonchi. GASTROINTESTINAL: Abdomen soft, non-tender, nondistended. GENITOURINARY: no CVAT MUSCULOSKELETAL: Extremities without clubbing, cyanosis, or edema. NEUROLOGICAL: Awake and alert. Laboratory Results - last 24 hr 07/29/18 07/29/18 07/29/18 19:49 22:40 22:40 CBC w Diff WBC RBC Hgb Hct MCV MCH MCHC RDW Plt Count MPV Neut % (Auto) Lymph % (Auto) [place] % (Auto) Eos % (Auto) Baso % (Auto) Neut # (Auto) Lymph # (Auto) [place] # (Auto) Eos # (Auto) Baso # (Auto) WBC Differential Diff Scan Differential Comment Platelet Estimate Platelet Morphology RBC Morphology PT 9.9 INR 1.0 APTT 25.8 Sodium Potassium Chloride Carbon Dioxide Anion Gap BUN Creatinine Estimated GFR Random Glucose Lactic Acid 1.3 Calcium Magnesium Total Bilirubin AST ALT Alkaline Phosphatase Total Protein Albumin Lipase Urine Color Yellow Urine Clarity Slightly cloudy Urine pH 5.5 Ur Specific [place] Greater/equal 1.030 Urine Protein 100 H Urine Glucose (UA) 100 H Urine Ketones Negative Urine Occult Blood Large H Urine Nitrate Negative Urine Bilirubin Negative Urine Urobilinogen 0.2 Ur Leukocyte Esterase Moderate H Urine RBC 51-189 H Urine WBC 21-50 H Urine WBC Clumps Few H Amorphous Sediment Few H Urine Bacteria Few H Urine Mucus Few H Micro UA Comment Culture indicated Ur Microscopic Review Microscopic reviewed Urine Culture Comments Culture indicated 07/29/18 07/29/18 07/30/18 22:40 22:40 10:40 CBC w Diff Slide review pending Slide review pending WBC 24.4 H 28.3 H RBC 4.60 4.53 Hgb 15.3 15.4 Hct 44.6 43.7 MCV 96.9 96.4 MCH 33.3 34.0 MCHC 34.4 35.3 RDW 15.8 15.4 Plt Count 380 409 MPV 9.2 9.5 Neut % (Auto) 91.7 H 89.8 H Lymph % (Auto) 5.3 L 4.8 L [place] % (Auto) 1.8 4.7 Eos % (Auto) 0.5 0.4 Baso % (Auto) 0.7 0.3 Neut # (Auto) 22.4 H 25.4 H Lymph # (Auto) 1.3 1.4 [place] # (Auto) 0.4 1.3 H Eos # (Auto) 0.1 0.1 Baso # (Auto) 0.2 0.1 WBC Differential . . Diff Scan Auto diff confirmed Auto diff confirmed Differential Comment . . Platelet Estimate Normal Platelet Morphology Normal RBC Morphology Normal PT INR APTT Sodium 136 Potassium 4.8 Chloride 106 Carbon Dioxide 22.0 Anion Gap 8 BUN 35 H Creatinine 2.10 H Estimated GFR 30 L Random Glucose 265 H Lactic Acid Calcium 8.8 Magnesium 2.3 Total Bilirubin 0.6 AST 10 L ALT 22 Alkaline Phosphatase 108 Total Protein 7.7 Albumin 4.1 Lipase 89 Urine Color Urine Clarity Urine pH Ur Specific [place] Urine Protein Urine Glucose (UA) Urine Ketones Urine Occult Blood Urine Nitrate Urine Bilirubin Urine Urobilinogen Ur Leukocyte Esterase Urine RBC Urine WBC Urine WBC Clumps Amorphous Sediment Urine Bacteria Urine Mucus Micro UA Comment Ur Microscopic Review Urine Culture Comments 07/30/18 10:40 CBC w Diff WBC RBC Hgb Hct MCV MCH MCHC RDW Plt Count MPV Neut % (Auto) Lymph % (Auto) [place] % (Auto) Eos % (Auto) Baso % (Auto) Neut # (Auto) Lymph # (Auto) [place] # (Auto) Eos # (Auto) Baso # (Auto) WBC Differential Diff Scan Differential Comment Platelet Estimate Platelet Morphology RBC Morphology PT INR APTT Sodium 136 Potassium 4.5 Chloride 103 Carbon Dioxide 23.9 Anion Gap 9 BUN 34 H Creatinine 2.30 H Estimated GFR 27 L Random Glucose 226 H Lactic Acid Calcium 8.5 Magnesium Total Bilirubin AST ALT Alkaline Phosphatase Total Protein Albumin Lipase Urine Color Urine Clarity Urine pH Ur Specific [place] Urine Protein Urine Glucose (UA) Urine Ketones Urine Occult Blood Urine Nitrate Urine Bilirubin Urine Urobilinogen Ur Leukocyte Esterase Urine RBC Urine WBC Urine WBC Clumps Amorphous Sediment Urine Bacteria Urine Mucus Micro UA Comment Ur Microscopic Review Urine Culture Comments Microbiology 07/29/18 19:49 Urine Culture - Preliminary Clean Catch Urine Immature growth - reincubate Result Diagrams: 07/30/18 10:40 07/30/18 10:40 Imaging: ITS Impressions Abdomen/Pelvis CT 07/30/18 00:12 CONCLUSION: 1. 3 mm stone of the mid left ureter causing mild obstructive uropathy, including perinephric and periureteral edema. 2. Nonobstructing stone and benign appearing cyst seen of the left kidney lower pole as well. 3. No organized fluid. No abscess. 4. Cholelithiasis. 5. Aortoiliac atherosclerosis. No aneurysm. Head CT 07/30/18 06:00 CONCLUSION: 1. No acute intracranial abnormality demonstrated. 2. Chronic appearing ethmoid and maxillary sinusitis. . Assessment and Plan - Plan 88y.o M with history as per HPI Urology consulted for 3mm left ureteral stone - No intervention needed He has high risk of heving complications from anesthesia due to his age and other medical issues so we will try to manage his stone conservatively He can try to pass this stone on his own - Continue management as per primary team Follow up on final UC and treat infection according to C&S - Due to h/o diarrhea r/o any GI issues - Continue fluids antbx, pain meds as needed and flomax. Strain urine - Monitor labs - Urology remains available - He will need to Follow up with urology as outpt as well in a week after d/c, he has a Urologist who he usually sees, Dr Reyes Discussed Condition With: Dr Santosh ZARAGOZA attending who agrees with this plan
[2018-07-30] MEDS ORDERED: Fosphenytoin Inj 1,000 MGPE in Sodium Chlor 0.9% Inj 50 ML IV.SIG ONE (15:55)
[2018-07-30] MEDS: Piperacil/Tazo 3.375 GM Premix 50 ML IV.SIG SCH ×2 (16:11→22:26)
--- NOTE | 2018-07-30 16:51 | MR ---
EXAM DATE: 07/30/2018 4:42 PM EDT AGE/SEX: 88 years / Male INDICATIONS: CVA. CLINICAL DATA: This is the patient's initial encounter. Patient reports that signs and symptoms have been present for 2 days and indicates a pain score of 0/10. MEDICAL/SURGICAL HISTORY: Chronic obstructive pulmonary disease. Carcinoma, prostatic. Appende ctomy. Tonsillectomy. COMPARISON: [facility], CT HEAD W/O CONTRAST, 07/30/2018. . TECHNIQUE: Multiplanar, multisequence examination of the brain was performed without contrast. FINDINGS: Cerebrum: The ventricles are normal for age. No evidence of midline shift, mass lesion, hemorrhage or acute infarction. No extraaxial fluid collections are seen. The pituitary gland and suprasellar cistern are normal in configuration. White Matter: No significant signal abnormalities are seen in the white matter. Posterior Fossa: The cerebellum and brainstem are intact. The 4th ventricle is midline. The cerebel lopontine angle is unremarkable. The cerebellar tonsils are normal in position. Diffusion Imaging: No focal areas of restricted diffusion are seen. No evidence of acute infarction . Extracranial: The visualized portions of the orbits are unremarkable. Mild bilateral maxillary sinus disease left greater than right CONCLUSION: 1. No evidence of an acute stroke, hemorrhage, mass or mass effect. Electronically signed by: Raghavendra Justice MD 07/30/2018 4:50 PM EDT
[2018-07-30] MEDS: Insulin NovoLOG Aspart Correctional Sugar Inj SQ SCH ×2 (16:55→20:27)
--- NOTE | 2018-07-30 17:43 | MG ---
cc: Tyesha Denson MD EEG NUMBER: [id number] REFERRING PHYSICIAN: Sean. ROOM NUMBER: [id number]. CLINICAL HISTORY: Awake, drowsy, asleep. Photic done. There was some lower lip, chin, and abdominal twitching even when the patient was asleep. No other mouth movements. Stroke-like symptoms at 5:30 with slurred speech and a little jaw twitching. CT did not show anything acute. Admitted with abdominal pain, loose bowels. He has a history of diabetes. MEDICATIONS: On Norvasc. Dilaudid was given last night, 1 mg, and 4 mg of morphine. DESCRIPTION OF RECORD: The patient exhibits overall 5-6 Hz background. Mouth twitching, but does not correlate with any epileptiform features. EKG is artifactual. The mouth twitching is seen throughout. Photic stimulation is performed with a posterior driving response. IMPRESSION: Some mild slowing seen with the mouth twitching. I do not see any evidence of any epileptiform features correlating, looks more muscle artifact, but some mild slowing can be seen with a mild encephalopathic process. Clinical correlation. Tyesha Denson MD DF/ll , 04:23 PM , 04:30 PM
[2018-07-30] MEDS: hydrALAZINE 25 MG Tablet PO SCH (17:53)
[2018-07-30 18:07] LABS: Hemoglobin A1c 7.5 % (4.3-6.0)
[2018-07-30 18:09] LABS: Chol/HDL Ratio 2.44 Ratio; HDL Cholesterol 50.8 mg/dL (40.0-60.0)
--- NOTE | 2018-07-30 18:24 | P.CONNEU ---
History of Present Illness Service: Neurology Primary Care Provider: [facility] Chief Complaint: Speech change, tremors History of Present Illness: 88-year-old male admitted for abdominal pain history of prostate cancer. Seen by urology noted to have 3 mm stone. Had some pain medication antibiotics. Thereafter noted to have tremulousness of his chin and face difficulty with speech. Given Ativan Celebrex and that has resolved. Had an MRI brain scan performed which did not show any acute lesion. Interestingly in 2013 he had a similar episode that resolved. Review of Systems All other systems reviewed negative except as stated in HPI [facility] - History History Provided By: Patient - Medical History Medical History: Medical History (Last Reviewed 07/30/18 @ 14:38 by Shahram Andrade) CKD (chronic kidney disease) Diabetes Hyperlipidemia Hypertension Prostate cancer - Family History Family History: Family History (Last Updated 07/30/18 @ 13:49 by Mague Estrada MD) Sister Diabetes - Tobacco History Second Hand Smoke Exposure: No Tobacco Use In Past 30 Days: No Smoking Status: Never smoker Tobacco Type: Cigarettes - Alcohol History How Often Do You Have a Drink Containing Alcohol: Never - Substance Use History Substance History: No History of Abuse - Travel History Recent Travel in the [place] Within the Last 8 Weeks: No Recent Travel Out of the Country Within the Last 8 Weeks: No - Immunization History Tetanus Immunization: Unsure Medications and Allergies Active Medications: Active Medications Acetaminophen (Tylenol) 650 mg PO Q4H PRN PRN Reason: Temp > 100.4 Amlodipine Besylate (Norvasc) 10 mg PO DAILY [facility] Last Admin: 07/30/18 09:41 Dose: 10 mg Aspirin (Ecotrin) 81 mg PO DAILY [facility] Last Admin: 07/30/18 09:43 Dose: Not Given Budesonide/Formoterol Fumarate (Symbicort 160/4.5 Mcg Inh) 2 puff INH BID [facility] Last Admin: 07/30/18 09:40 Dose: 2 puff Clonidine HCl (Catapres) 0.1 mg PO Q6H PRN PRN Reason: SBP>180, DBP>100, HR>65 Last Admin: 07/30/18 07:59 Dose: 0.1 mg Dextrose (D50w Vial) 50 ml IV.PUSH UNSCH PRN PRN Reason: PER HYPOGLYCEMIA PROTOCOL Glucagon (Glucagon Inj) 1 mg OTHER PRN PRN PRN Reason: for Hypoglycemia Protocol Hydralazine HCl (Apresoline) 25 mg PO TID [facility] Last Admin: 07/30/18 17:53 Dose: 25 mg Sodium Chloride (Ns Inj) 1,000 mls @ 100 mls/hr IV.CONT .Q10H [facility] Last Infusion: 07/30/18 13:11 Dose: Infused Piperacillin/Tazobactam/Dextrose (Zosyn 3.375 Gm Premix) 50 mls @ 100 mls/hr IV.SIG Q6H [facility] Last Admin: 07/30/18 16:11 Dose: 100 mls/hr Insulin Aspart (Novolog Insulin Correctional Sugar Inj) 0 unit SQ ACHS [facility]; Protocol Last Admin: 07/30/18 16:55 Dose: Not Given Morphine Sulfate (Morphine Inj) 5 mg IV.PUSH Q4H PRN PRN Reason: PAIN SCALE 6 TO 10 Last Admin: 07/30/18 13:39 Dose: 5 mg Ondansetron HCl (Zofran Inj) 4 mg IV.PUSH Q6H PRN PRN Reason: NAUSEA OR VOMITING Pravastatin Sodium (Pravachol) 10 mg PO DAILY [facility] Last Admin: 07/30/18 09:41 Dose: 10 mg Propranolol HCl (Inderal) 10 mg PO BID [facility] Sodium Chloride (Ns Flush) 2 ml IV.FLUSH PRN PRN PRN Reason: FLUSH AFTER USING IV ACCESS Tamsulosin HCl (Flomax) 0.4 mg PO DAILY [facility] Last Admin: 07/30/18 15:04 Dose: 0.4 mg Allergies Allergy/AdvReac Type Severity Reaction Status Date / Time lisinopril Allergy Severe Shortness Verified 07/30/18 00:15 of Breath simvastatin Allergy Intermediate muscle Verified 07/30/18 00:15 aches Home Medications Medication Instructions Recorded Confirmed Type amlodipine 10 mg PO DAILY 07/29/18 07/29/18 History aspirin [Aspirin Low Dose] 81 mg PO DAILY 07/29/18 07/29/18 History budesonide-formoterol [Symbicort] 2 puff INHALATION BID 07/29/18 07/29/18 History cholecalciferol (vitamin D3) 1,000 unit PO DAILY 07/29/18 07/29/18 History [Vitamin D3] dextran 70-hypromellose 1 drp OPHTHALMIC (EYE) Q12H PRN 07/29/18 07/29/18 History [Artificial Tears (PF)] glipizide 10 mg PO BID 07/29/18 07/29/18 History hydrochlorothiazide 25 mg PO DAILY 07/29/18 07/29/18 History insulin glargine [Lantus U-100 10 unit SUBCUT DAILY 07/29/18 07/29/18 History Insulin] loratadine 10 mg PO DAILY 07/29/18 07/29/18 History lovastatin 10 mg PO DAILY 07/29/18 07/29/18 History multivitamin with minerals 1 tab PO DAILY 07/29/18 07/29/18 History valsartan 160 mg PO DAILY 07/29/18 07/29/18 History Exam Vital signs: Vital Signs 07/29/18 19:36 07/29/18 23:00 07/30/18 00:00 Temperature 98.8 F Pulse Rate 77 83 84 Respiratory Rate 18 17 17 Blood Pressure 181/81 H 183/83 H 163/73 H Pulse Oximetry 96 96 96 07/30/18 00:20 07/30/18 01:00 07/30/18 02:42 Temperature Pulse Rate 90 80 Respiratory Rate 18 16 18 Blood Pressure 170/77 H 170/70 H Pulse Oximetry 95 95 07/30/18 04:00 07/30/18 05:37 07/30/18 06:06 Temperature 97.3 F L Pulse Rate 93 H 94 H Respiratory Rate 18 18 Blood Pressure 190/93 H 172/93 H Pulse Oximetry 95 07/30/18 08:00 07/30/18 12:00 07/30/18 16:00 Temperature 97.8 F 98.7 F 97.8 F Pulse Rate 74 77 75 Respiratory Rate 20 20 19 Blood Pressure 191/95 H 175/81 H 171/74 H Pulse Oximetry 97 96 95 Intake & Output 07/29/18 07/30/18 07/30/18 18:59 06:59 18:59 Intake Total 300 / 300 1000 / 1000 Output Total 900 / 900 Balance 300 / 300 100 / 100 Weight 82 kg Intake: IV 100 / 100 1000 / 1000 NS Inj 1,000 ML @ 100 mls/hr IV 1000 / 1000 .CONT .Q10H [facility] Rx#:[id number] Rocephin Inj 1,000 MG In NS Inj 100 / 100 100 ML @ 200 mls/hr IV.SIG ONCE ONE Rx#:[id number] Oral 200 / 200 0 / 0 Output: Urine 900 / 900 Other: # Voids 1 Date of Last Bowel Movement 07/26/18 07/26/18 Weight On Admission 82 kg Narrative: GENERAL: in NAD, SKIN: Warm and dry. HEAD: Atraumatic. Normocephalic. EYES: Pupils equal and round. No scleral icterus. ENT: No nasal bleeding or discharge. Mucous membranes pink and moist. NECK: Trachea midline. No JVD. CARDIOVASCULAR: Regular rate and rhythm. RESPIRATORY: No accessory muscle use. GASTROINTESTINAL: Abdomen soft, non-tender, nondistended. MUSCULOSKELETAL: Extremities without clubbing, cyanosis, or edema. No obvious deformities. NEUROLOGICAL: Drowsy but arousable, oriented x2 not to date, follows one-step midline motor crossing request, OD approximately 2-3 mm reactive, OS proximal 5 mm nonreactive, states is chronic for him, no involuntary movements no tremulousness noted, neck supple, able to move all 4 extremity gravity, gait not assessed secondary fall risk PSYCHIATRIC: Appropriate mood and affect; insight and judgment normal. Results - Labs CBC & Chem 7: 07/30/18 10:40 07/30/18 10:40 Labs: Laboratory Results - last 24 hr 07/29/18 07/29/18 07/29/18 19:49 22:40 22:40 CBC w Diff WBC RBC Hgb Hct MCV MCH MCHC RDW Plt Count MPV Neut % (Auto) Lymph % (Auto) [place] % (Auto) Eos % (Auto) Baso % (Auto) Neut # (Auto) Lymph # (Auto) [place] # (Auto) Eos # (Auto) Baso # (Auto) WBC Differential Diff Scan Differential Comment Platelet Estimate Platelet Morphology RBC Morphology PT 9.9 INR 1.0 APTT 25.8 Sodium Potassium Chloride Carbon Dioxide Anion Gap BUN Creatinine Estimated GFR Random Glucose Lactic Acid 1.3 Calcium Magnesium Total Bilirubin AST ALT Alkaline Phosphatase Total Protein Albumin Triglycerides Cholesterol LDL Cholesterol, Calc HDL Cholesterol Cholesterol/HDL Ratio Lipase Urine Color Yellow Urine Clarity Slightly cloudy Urine pH 5.5 Ur Specific [place] Greater/equal 1.030 Urine Protein 100 H Urine Glucose (UA) 100 H Urine Ketones Negative Urine Occult Blood Large H Urine Nitrate Negative Urine Bilirubin Negative Urine Urobilinogen 0.2 Ur Leukocyte Esterase Moderate H Urine RBC 51-189 H Urine WBC 21-50 H Urine WBC Clumps Few H Amorphous Sediment Few H Urine Bacteria Few H Urine Mucus Few H Micro UA Comment Culture indicated Ur Microscopic Review Microscopic reviewed Urine Culture Comments Culture indicated 07/29/18 07/29/18 07/30/18 22:40 22:40 10:40 CBC w Diff Slide review pending Slide review pending WBC 24.4 H 28.3 H RBC 4.60 4.53 Hgb 15.3 15.4 Hct 44.6 43.7 MCV 96.9 96.4 MCH 33.3 34.0 MCHC 34.4 35.3 RDW 15.8 15.4 Plt Count 380 409 MPV 9.2 9.5 Neut % (Auto) 91.7 H 89.8 H Lymph % (Auto) 5.3 L 4.8 L [place] % (Auto) 1.8 4.7 Eos % (Auto) 0.5 0.4 Baso % (Auto) 0.7 0.3 Neut # (Auto) 22.4 H 25.4 H Lymph # (Auto) 1.3 1.4 [place] # (Auto) 0.4 1.3 H Eos # (Auto) 0.1 0.1 Baso # (Auto) 0.2 0.1 WBC Differential . . Diff Scan Auto diff confirmed Auto diff confirmed Differential Comment . . Platelet Estimate Normal Platelet Morphology Normal RBC Morphology Normal PT INR APTT Sodium 136 Potassium 4.8 Chloride 106 Carbon Dioxide 22.0 Anion Gap 8 BUN 35 H Creatinine 2.10 H Estimated GFR 30 L Random Glucose 265 H Lactic Acid Calcium 8.8 Magnesium 2.3 Total Bilirubin 0.6 AST 10 L ALT 22 Alkaline Phosphatase 108 Total Protein 7.7 Albumin 4.1 Triglycerides Cholesterol LDL Cholesterol, Calc HDL Cholesterol Cholesterol/HDL Ratio Lipase 89 Urine Color Urine Clarity Urine pH Ur Specific [place] Urine Protein Urine Glucose (UA) Urine Ketones Urine Occult Blood Urine Nitrate Urine Bilirubin Urine Urobilinogen Ur Leukocyte Esterase Urine RBC Urine WBC Urine WBC Clumps Amorphous Sediment Urine Bacteria Urine Mucus Micro UA Comment Ur Microscopic Review Urine Culture Comments 07/30/18 10:40 CBC w Diff WBC RBC Hgb Hct MCV MCH MCHC RDW Plt Count MPV Neut % (Auto) Lymph % (Auto) [place] % (Auto) Eos % (Auto) Baso % (Auto) Neut # (Auto) Lymph # (Auto) [place] # (Auto) Eos # (Auto) Baso # (Auto) WBC Differential Diff Scan Differential Comment Platelet Estimate Platelet Morphology RBC Morphology PT INR APTT Sodium 136 Potassium 4.5 Chloride 103 Carbon Dioxide 23.9 Anion Gap 9 BUN 34 H Creatinine 2.30 H Estimated GFR 27 L Random Glucose 226 H Lactic Acid Calcium 8.5 Magnesium Total Bilirubin AST ALT Alkaline Phosphatase Total Protein Albumin Triglycerides 56 Cholesterol 124 LDL Cholesterol, Calc 62 HDL Cholesterol 50.8 Cholesterol/HDL Ratio 2.44 Lipase Urine Color Urine Clarity Urine pH Ur Specific [place] Urine Protein Urine Glucose (UA) Urine Ketones Urine Occult Blood Urine Nitrate Urine Bilirubin Urine Urobilinogen Ur Leukocyte Esterase Urine RBC Urine WBC Urine WBC Clumps Amorphous Sediment Urine Bacteria Urine Mucus Micro UA Comment Ur Microscopic Review Urine Culture Comments - Imaging Impressions Head MRI 07/30/18 00:00 CONCLUSION: 1. No evidence of an acute stroke, hemorrhage, mass or mass effect. Abdomen/Pelvis CT 07/30/18 00:12 CONCLUSION: 1. 3 mm stone of the mid left ureter causing mild obstructive uropathy, including perinephric and periureteral edema. 2. Nonobstructing stone and benign appearing cyst seen of the left kidney lower pole as well. 3. No organized fluid. No abscess. 4. Cholelithiasis. 5. Aortoiliac atherosclerosis. No aneurysm. Head CT 07/30/18 06:00 CONCLUSION: 1. No acute intracranial abnormality demonstrated. 2. Chronic appearing ethmoid and maxillary sinusitis. . Review/Management - Diagnosis (1) Involuntary movements Code(s): R25.9 - Unspecified abnormal involuntary movements Status: Acute Current Visit: Yes (2) Urinary tract infection Code(s): N39.0 - Urinary tract infection, site not specified Status: Acute Current Visit: Yes (3) Calculus, ureteral Code(s): N20.1 - Calculus of ureter Status: Acute Current Visit: Yes (4) Obstructive uropathy Code(s): N13.9 - Obstructive and reflux uropathy, unspecified Status: Acute Current Visit: Yes - Review/Management Plan: Possibly secondary to Dilaudid Resolved with Ativan EEG with possible tiny discharges versus artifact MRI brain scan no acute lesion Similar episode 2014 during acute metabolic stressors that resolved Recommendation Avoid opiates particularly Dilaudid Continue Dilantin 150 mg p.o. twice daily. DC outpatient setting may need a repeat EEG Symptoms return persist or confusion will need to look at CSF studies. Discussed with spouse and medical We will follow peripherally (2) Urinary tract infection Qualifiers: Urinary tract infection type: site unspecified Hematuria presence: with hematuria Qualified Code(s): N39.0 - Urinary tract infection, site not specified; R31.9 - Hematuria, unspecified
--- NOTE | 2018-07-30 21:29 | P.PN ---
Subjective Interval history: NOT SEEN Physical Exam Vital signs: Vital Signs 07/29/18 23:00 07/30/18 00:00 07/30/18 00:20 Temperature Pulse Rate 83 84 Respiratory Rate 17 17 18 Blood Pressure 183/83 H 163/73 H Pulse Oximetry 96 96 07/30/18 01:00 07/30/18 02:42 07/30/18 04:00 Temperature 97.3 F L Pulse Rate 90 80 93 H Respiratory Rate 16 18 18 Blood Pressure 170/77 H 170/70 H 190/93 H Pulse Oximetry 95 95 95 07/30/18 05:37 07/30/18 06:06 07/30/18 08:00 Temperature 97.8 F Pulse Rate 94 H 74 Respiratory Rate 18 20 Blood Pressure 172/93 H 191/95 H Pulse Oximetry 97 07/30/18 12:00 07/30/18 16:00 07/30/18 20:00 Temperature 98.7 F 97.8 F 98.2 F Pulse Rate 77 75 54 L Respiratory Rate 20 19 18 Blood Pressure 175/81 H 171/74 H 107/52 L Pulse Oximetry 96 95 93 L Intake & Output 07/30/18 07/30/18 07/31/18 06:59 18:59 06:59 Intake Total 300 / 300 1000 / 1000 Output Total 900 / 900 Balance 300 / 300 100 / 100 Weight 82 kg Intake: IV 100 / 100 1000 / 1000 NS Inj 1,000 ML @ 100 mls/hr IV 1000 / 1000 .CONT .Q10H [facility] Rx#:[id number] Rocephin Inj 1,000 MG In NS Inj 100 / 100 100 ML @ 200 mls/hr IV.SIG ONCE ONE Rx#:[id number] Oral 200 / 200 0 / 0 Output: Urine 900 / 900 Other: # Voids 1 Date of Last Bowel Movement 07/26/18 07/26/18 Weight On Admission 82 kg Narrative: GENERAL: WN, WD elderly male resting in bed in [facility]. SKIN: Warm and dry without rash or jaundice. HEART: RRR no m/r/g. LUNGS: CTAB without wheezes or crackles. ABDOMEN: +BS, soft, ND, TTP over palpation EXTREMITIES: No LE edema. 2+ pedal pulses. NEURO: Awake and alert. Spasticity of oropharyngeal and neck muscles with some dystonic appearing movements and tremors. UE and LE strength 5/5. No pronator drift. CN II-XII intact. Results - Labs CBC & Chem 7: 07/30/18 10:40 07/30/18 10:40 Laboratory Results - last 24 hr 07/29/18 07/29/18 07/29/18 22:40 22:40 22:40 CBC w Diff Slide review pending WBC 24.4 H RBC 4.60 Hgb 15.3 Hct 44.6 MCV 96.9 MCH 33.3 MCHC 34.4 RDW 15.8 Plt Count 380 MPV 9.2 Neut % (Auto) 91.7 H Lymph % (Auto) 5.3 L [place] % (Auto) 1.8 Eos % (Auto) 0.5 Baso % (Auto) 0.7 Neut # (Auto) 22.4 H Lymph # (Auto) 1.3 [place] # (Auto) 0.4 Eos # (Auto) 0.1 Baso # (Auto) 0.2 WBC Differential . Diff Scan Auto diff confirmed Differential Comment . Platelet Estimate Normal Platelet Morphology Normal RBC Morphology Normal PT 9.9 INR 1.0 APTT 25.8 Sodium Potassium Chloride Carbon Dioxide Anion Gap BUN Creatinine Estimated GFR POC Glucose Random Glucose Hemoglobin A1c Lactic Acid 1.3 Calcium Magnesium Total Bilirubin AST ALT Alkaline Phosphatase Total Protein Albumin Triglycerides Cholesterol LDL Cholesterol, Calc HDL Cholesterol Cholesterol/HDL Ratio Lipase 07/29/18 07/30/18 07/30/18 22:40 10:40 10:40 CBC w Diff Slide review pending WBC 28.3 H RBC 4.53 Hgb 15.4 Hct 43.7 MCV 96.4 MCH 34.0 MCHC 35.3 RDW 15.4 Plt Count 409 MPV 9.5 Neut % (Auto) 89.8 H Lymph % (Auto) 4.8 L [place] % (Auto) 4.7 Eos % (Auto) 0.4 Baso % (Auto) 0.3 Neut # (Auto) 25.4 H Lymph # (Auto) 1.4 [place] # (Auto) 1.3 H Eos # (Auto) 0.1 Baso # (Auto) 0.1 WBC Differential . Diff Scan Auto diff confirmed Differential Comment . Platelet Estimate Platelet Morphology RBC Morphology PT INR APTT Sodium 136 136 Potassium 4.8 4.5 Chloride 106 103 Carbon Dioxide 22.0 23.9 Anion Gap 8 9 BUN 35 H 34 H Creatinine 2.10 H 2.30 H Estimated GFR 30 L 27 L POC Glucose Random Glucose 265 H 226 H Hemoglobin A1c Lactic Acid Calcium 8.8 8.5 Magnesium 2.3 Total Bilirubin 0.6 AST 10 L ALT 22 Alkaline Phosphatase 108 Total Protein 7.7 Albumin 4.1 Triglycerides 56 Cholesterol 124 LDL Cholesterol, Calc 62 HDL Cholesterol 50.8 Cholesterol/HDL Ratio 2.44 Lipase 89 07/30/18 07/30/18 10:40 20:26 CBC w Diff WBC RBC Hgb Hct MCV MCH MCHC RDW Plt Count MPV Neut % (Auto) Lymph % (Auto) [place] % (Auto) Eos % (Auto) Baso % (Auto) Neut # (Auto) Lymph # (Auto) [place] # (Auto) Eos # (Auto) Baso # (Auto) WBC Differential Diff Scan Differential Comment Platelet Estimate Platelet Morphology RBC Morphology PT INR APTT Sodium Potassium Chloride Carbon Dioxide Anion Gap BUN Creatinine Estimated GFR POC Glucose 149 H Random Glucose Hemoglobin A1c 7.5 H Lactic Acid Calcium Magnesium Total Bilirubin AST ALT Alkaline Phosphatase Total Protein Albumin Triglycerides Cholesterol LDL Cholesterol, Calc HDL Cholesterol Cholesterol/HDL Ratio Lipase Microbiology 07/29/18 19:49 Clean Catch Urine Urine Culture - Preliminary Immature growth - reincubate - Imaging Impressions Head MRI 07/30/18 00:00 CONCLUSION: 1. No evidence of an acute stroke, hemorrhage, mass or mass effect. Abdomen/Pelvis CT 07/30/18 00:12 CONCLUSION: 1. 3 mm stone of the mid left ureter causing mild obstructive uropathy, including perinephric and periureteral edema. 2. Nonobstructing stone and benign appearing cyst seen of the left kidney lower pole as well. 3. No organized fluid. No abscess. 4. Cholelithiasis. 5. Aortoiliac atherosclerosis. No aneurysm. Head CT 07/30/18 06:00 CONCLUSION: 1. No acute intracranial abnormality demonstrated. 2. Chronic appearing ethmoid and maxillary sinusitis. . - Procedures none Assessment and Plan - Assessment (1) Obstructive uropathy Code(s): N13.9 - Obstructive and reflux uropathy, unspecified Status: Acute (2) Urinary tract infection Code(s): N39.0 - Urinary tract infection, site not specified Status: Acute (3) Calculus, ureteral Code(s): N20.1 - Calculus of ureter Status: Acute - Plan 88-year-old male with history of IDDM, HTN, HLD, prostate cancer, and CKD presented on 07/29 with abdominal pain. U/A with evidence of infection and CT A/P showed left ureteral stone with mild obstructive uropathy. 1. UTI - U/A with leukocyte esterase, protein, blood, bacteria - Urine culture pending - White count 24.4 - meeting sepsis criteria - Was started on Rocephin but then patient developed an oropharyngeal dystonic type reaction so antibiotic was changed to Zosyn - Continue to follow cultures 2. Urolithiasis with mild obstructive uropathy - CT A/P with 3 mm left ureteral stent with associated mild obstructive uropathy - IV fluids - Pain control - Antiemetics - Flomax - Given some degree of obstruction and associated UTI will consult urology recommended medical mgt as pt hi risk and expected to pass stone 3. Involuntary mouth movements, dystonia, jaw tremors - Per neuro possible with Dilaudid - D/C Dilaudid, change Rocephin to Zosyn - ST for swallow eval - Neuro consulted - Stat CT head done this morning negative - MRI no lesion - Abnormal EEG vs artifact, ct dilantin per neuro. No driving 4. IDDM - SSI per protocol 5. HTN - BPs running high - Resume home amlodipine - Holding home ARB and thiazide in light of possible ALY - Start hydralazine - Clonidine PRN - Continue to monitor and adjust meds as needed 6. Acute on CKD stage 3 - Unsure of baseline therefore will hold home ARB and thiazide diuretic in case there is an acute injury component, ct IVF - Avoid nephrotoxic agents - Monitor renal function 7. HLD - Resume home statin FEN. PO pending swallow eval DVT prophylaxis: heparin (2) Urinary tract infection Qualifiers: Urinary tract infection type: site unspecified Hematuria presence: with hematuria Qualified Code(s): N39.0 - Urinary tract infection, site not specified; R31.9 - Hematuria, unspecified
[2018-07-30] MEDS: Phenytoin 50 MG Chewable Tablet PO SCH (22:23)
[2018-07-30] MEDS: Phenytoin Sodium 100 MG Capsule PO SCH (22:24)
[2018-07-30] MEDS: Propranolol 10 MG Tablet PO SCH (22:24)
[2018-07-31] MEDS: Piperacil/Tazo 3.375 GM Premix 50 ML IV.SIG SCH ×4 (04:09→21:03)
[2018-07-31] MEDS: Morphine Sulfate Inj 8 MG/ML Vial IV.PUSH PRN (05:06)
[2018-07-31] MEDS ORDERED: Senna/Docusate Sodium 8.6/50 MG Tablet PO ONE (05:20)
[2018-07-31] MEDS ORDERED: Morphine Inj 4 MG/ML Vial IV.PUSH PRN (08:13)
[2018-07-31] MEDS ORDERED: Naloxone Inj 0.4 MG/ML Vial IV.PUSH PRN (08:13)
--- NOTE | 2018-07-31 08:38 | XR ---
EXAM DATE: 07/31/2018 8:12 AM EDT AGE/SEX: 88 years / Male INDICATIONS: Constipation. CLINICAL DATA: This is the patient's initial encounter. Patient reports that signs and symptoms have been present for 3 days and indicates a pain score of 6/10. MEDICAL/SURGICAL HISTORY: . Chronic obstructive pulmonary disease. Carcinoma, prostatic. Appen dectomy. Tonsillectomy. COMPARISON: [facility], ABDOMEN KUB ONLY, 12/05/2013. . FINDINGS: Previous seed implant for prostate cancer are noted. Lung bases are clear. Moderate gaseous distenti on of large and small bowel are noted. Degenerative changes are present lumbar spine. CONCLUSION: Moderate gaseous distention. The only solid stool within the ascending colon. History of prostate cancer. Electronically signed by: Tomas Lynch MD 07/31/2018 8:37 AM EDT
[2018-07-31] MEDS: Insulin NovoLOG Aspart Correctional Sugar Inj SQ SCH ×4 (08:53→21:01)
[2018-07-31] MEDS: hydrALAZINE 25 MG Tablet PO SCH ×4 (08:54→18:19)
[2018-07-31] MEDS: Senna/Docusate Sodium 8.6/50 MG Tablet PO SCH ×2 (08:54→20:53)
[2018-07-31] MEDS: Propranolol 10 MG Tablet PO SCH ×2 (08:54→20:52)
[2018-07-31] MEDS: Phenytoin Sodium 100 MG Capsule PO SCH ×2 (08:54→20:52)
[2018-07-31] MEDS: amLODIPine 10 MG Tablet PO SCH (08:54)
[2018-07-31] MEDS: Polyethylene Glycol 3350 17 GM Packet PO SCH (08:55)
[2018-07-31] MEDS: Budesonide-Formoterol 160/4.5 MCG 6 GM Inhaler INH SCH ×2 (08:56→20:53)
[2018-07-31 09:25] LABS: Baso # (Auto) 0.2 th/mm3 (0.0-0.2); Baso % (Auto) 0.6 % (0.0-2.0); Eos # (Auto) 0.3 th/mm3 (0.0-0.4); Hematocrit 43.2 % (39.0-51.0); Lymph # (Auto) 1.1 th/mm3 (1.0-4.8); Lymph % (Auto) 3.8 % (9.0-44.0); Mean Corpuscular HGB Conc 34.8 % (32.0-36.0); Mean Corpuscular Hemoglobin 33.6 pg (27.0-34.0); Mean Corpuscular Volume 96.8 fL (80.0-100.0); Mono # (Auto) 1.4 th/mm3 (0.0-0.9); Mono % (Auto) 4.7 % (0.0-8.0); Neut # (Auto) 26.1 th/mm3 (1.8-7.7); Neut % (Auto) 89.9 % (16.0-70.0); Platelet Count 378 th/mm3 (150-450); Red Blood Count 4.46 mil/mm3 (4.50-5.90); Red Cell Distribution Width 15.5 % (11.6-17.2); White Blood Count 29.1 th/mm3 (4.0-11.0)
[2018-07-31 09:58] LABS: Calcium 8.4 mg/dL (8.5-10.1); Carbon Dioxide 22.8 meq/L (21.0-32.0)
[2018-07-31 10:02] LABS: Eosinophils 1 % (0-4); Lymphocytes 4 % (9-44); Monocytes 2 % (0-8); Platelet Estimate Normal (Normal); Platelet Morphology Normal (Normal)
[2018-07-31 10:10] LABS: Potassium 5.6 meq/L (3.5-5.1)
[2018-07-31] MEDS ORDERED: Sodium Polystyrene Sulfonate/Sorbitol Liq 15 GM/60 ML UDC PO ONE (10:38)
[2018-07-31] MEDS ORDERED: Bisacodyl 10 MG Supp RECTAL PRN (10:40)
--- NOTE | 2018-07-31 10:56 | P.PN ---
Subjective Interval history: Follow-up abdominal pain. Reports of constant left lower quadrant pain. Also complains of abdominal distention and not able to pass gas and bowel movement for the past 2 days. Denies nausea and vomiting. Discussed with nurse, IV fluid discontinued yesterday because he was short of breath the patient denied. No history of heart failure. Physical Exam Vital signs: Vital Signs 07/30/18 12:00 07/30/18 16:00 07/30/18 20:00 Temperature 98.7 F 97.8 F 98.2 F Pulse Rate 77 75 54 L Respiratory Rate 20 19 18 Blood Pressure 175/81 H 171/74 H 107/52 L Pulse Oximetry 96 95 93 L 07/31/18 00:00 07/31/18 04:00 07/31/18 07:28 Temperature 98.9 F 99.9 F H Pulse Rate 57 L 57 L 68 Respiratory Rate 18 18 18 Blood Pressure 143/71 H 124/71 Pulse Oximetry 96 93 L 07/31/18 08:00 Temperature 97.2 F L Pulse Rate 64 Respiratory Rate 20 Blood Pressure 168/76 H Pulse Oximetry 94 L Intake & Output 07/30/18 07/31/18 07/31/18 18:59 06:59 18:59 Intake Total 1050 / 1050 800 / 800 Output Total 900 / 900 450 / 450 Balance 150 / 150 350 / 350 Intake: IV 1050 / 1050 600 / 600 NS Inj 1,000 ML @ 100 mls/hr IV 1000 / 1000 .CONT .Q10H ELAN Rx#:[id number] Zosyn 3.375 GM Premix 50 ML @ 50 / 50 100 / 100 100 mls/hr IV.SIG Q6H ELAN Rx#: [id number] Oral 0 / 0 200 / 200 Output: Urine 900 / 900 450 / 450 Other: Date of Last Bowel Movement 07/26/18 Narrative: GENERAL: WN, WD elderly male resting in bed SKIN: Warm and dry without rash or jaundice. HEART: RRR no m/r/g. LUNGS: CTAB without wheezes or crackles. ABDOMEN: +BS, soft, distended , tympanitic, left lower quadrant TTP over palpation EXTREMITIES: No LE edema. 2+ pedal pulses. NEURO: Awake and alert. No abnormal motor activity. UE and LE strength 5/5. No pronator drift. CN II-XII intact. Results - Labs CBC & Chem 7: 07/31/18 09:11 07/31/18 09:11 Laboratory Results - last 24 hr 07/30/18 07/30/18 07/30/18 10:40 10:40 10:40 CBC w Diff Slide review pending WBC 28.3 H RBC 4.53 Hgb 15.4 Hct 43.7 MCV 96.4 MCH 34.0 MCHC 35.3 RDW 15.4 Plt Count 409 MPV 9.5 Neut % (Auto) 89.8 H Lymph % (Auto) 4.8 L [place] % (Auto) 4.7 Eos % (Auto) 0.4 Baso % (Auto) 0.3 Neut # (Auto) 25.4 H Lymph # (Auto) 1.4 [place] # (Auto) 1.3 H Eos # (Auto) 0.1 Baso # (Auto) 0.1 WBC Differential . Diff Scan Auto diff confirmed Seg Neuts % (Manual) Band Neuts % (Manual) Lymphocytes % (Manual) Monocytes % (Manual) Eosinophils % (Manual) Abs Neuts (Manual) Differential Comment . Platelet Estimate Platelet Morphology Sodium 136 Potassium 4.5 Chloride 103 Carbon Dioxide 23.9 Anion Gap 9 BUN 34 H Creatinine 2.30 H Estimated GFR 27 L POC Glucose Random Glucose 226 H Hemoglobin A1c 7.5 H Calcium 8.5 Total Creatine Kinase Triglycerides 56 Cholesterol 124 LDL Cholesterol, Calc 62 HDL Cholesterol 50.8 Cholesterol/HDL Ratio 2.44 07/30/18 07/30/18 07/31/18 20:26 23:38 09:11 CBC w Diff Slide review pending WBC 29.1 H RBC 4.46 L Hgb 15.0 Hct 43.2 MCV 96.8 MCH 33.6 MCHC 34.8 RDW 15.5 Plt Count 378 MPV 9.0 Neut % (Auto) 89.9 H Lymph % (Auto) 3.8 L [place] % (Auto) 4.7 Eos % (Auto) 1.0 Baso % (Auto) 0.6 Neut # (Auto) 26.1 H Lymph # (Auto) 1.1 [place] # (Auto) 1.4 H Eos # (Auto) 0.3 Baso # (Auto) 0.2 WBC Differential Manual diff final Diff Scan Seg Neuts % (Manual) 84 H Band Neuts % (Manual) 9 H Lymphocytes % (Manual) 4 L Monocytes % (Manual) 2 Eosinophils % (Manual) 1 Abs Neuts (Manual) 27.1 H Differential Comment . Platelet Estimate Normal Platelet Morphology Normal Sodium Potassium Chloride Carbon Dioxide Anion Gap BUN Creatinine Estimated GFR POC Glucose 149 H 233 H Random Glucose Hemoglobin A1c Calcium Total Creatine Kinase Triglycerides Cholesterol LDL Cholesterol, Calc HDL Cholesterol Cholesterol/HDL Ratio 07/31/18 07/31/18 09:11 09:11 CBC w Diff WBC RBC Hgb Hct MCV MCH MCHC RDW Plt Count MPV Neut % (Auto) Lymph % (Auto) [place] % (Auto) Eos % (Auto) Baso % (Auto) Neut # (Auto) Lymph # (Auto) [place] # (Auto) Eos # (Auto) Baso # (Auto) WBC Differential Diff Scan Seg Neuts % (Manual) Band Neuts % (Manual) Lymphocytes % (Manual) Monocytes % (Manual) Eosinophils % (Manual) Abs Neuts (Manual) Differential Comment Platelet Estimate Platelet Morphology Sodium 137 Potassium 5.6 H D Chloride 105 Carbon Dioxide 22.8 Anion Gap 9 BUN 44 H Creatinine 3.40 H Estimated GFR 17 L POC Glucose Random Glucose 283 H Hemoglobin A1c Calcium 8.4 L Total Creatine Kinase 210 Triglycerides Cholesterol LDL Cholesterol, Calc HDL Cholesterol Cholesterol/HDL Ratio Microbiology 07/29/18 19:49 Clean Catch Urine Urine Culture - Final 50-100,000 cfu/mL mixed gram positive audi (probable contaminants) - Imaging Impressions Head MRI 07/30/18 00:00 CONCLUSION: 1. No evidence of an acute stroke, hemorrhage, mass or mass effect. Abdomen X-Ray 07/31/18 00:00 CONCLUSION: Moderate gaseous distention. The only solid stool within the ascending colon. History of prostate cancer. - Procedures none Assessment and Plan - Assessment (1) Obstructive uropathy Code(s): N13.9 - Obstructive and reflux uropathy, unspecified Status: Acute (2) Urinary tract infection Code(s): N39.0 - Urinary tract infection, site not specified Status: Acute (3) Calculus, ureteral Code(s): N20.1 - Calculus of ureter Status: Acute - Plan 88-year-old male with history of IDDM, HTN, HLD, prostate cancer, and CKD presented on 07/29 with abdominal pain. U/A with evidence of infection and CT A/P showed left ureteral stone with mild obstructive uropathy. 1. UTI with sepsis - U/A with leukocyte esterase, protein, blood, bacteria - Urine culture pending - Persistent leukocytosis - meeting sepsis criteria - Was started on Rocephin but then patient developed an oropharyngeal dystonic type reaction so antibiotic was changed to Zosyn - Continue to follow cultures 2. Urolithiasis with mild obstructive uropathy - CT A/P with 3 mm left ureteral stent with associated mild obstructive uropathy - IV fluids if no evidence of fluid overload - Pain control - Antiemetics - Flomax - Given some degree of obstruction and associated UTI consulted urology recommended medical mgt as pt hi risk and expected to pass stone. I am concerned with patient's clinical status with worsening leukocytosis and persistent abdominal pain, will discuss with who has been page 3. Involuntary mouth movements, dystonia, jaw tremors - Per neuro possible with Dilaudid - D/C Dilaudid, change Rocephin to Zosyn -Status post swallowing eval - Neuro consulted - Stat CT head done this morning negative - MRI no lesion - Abnormal EEG vs artifact, ct dilantin per neuro. No driving 4. IDDM - SSI per protocol 5. HTN - BPs running high - Resume home amlodipine - Holding home ARB and thiazide in light of possible ALY - Start hydralazine - Clonidine PRN - Continue to monitor and adjust meds as needed 6. Acute on CKD stage 3 with hyperkalemia - Unsure of baseline therefore will hold home ARB and thiazide diuretic in case there is an acute injury component, ct IVF if workup negative for fluid overload - Avoid nephrotoxic agents - Monitor renal function - Kayexalate 7. HLD - Resume home statin 8. Gaseous distention likely ileus. Lactic acid within normal limits per. Start Reglan and bowel regimen. Rectal tube or consider GI consult. 9. Reported shortness of breath which patient denied. Obtain chest x-ray and BNP. DVT prophylaxis: heparin (2) Urinary tract infection Qualifiers: Urinary tract infection type: site unspecified Hematuria presence: with hematuria Qualified Code(s): N39.0 - Urinary tract infection, site not specified; R31.9 - Hematuria, unspecified
--- NOTE | 2018-07-31 11:23 | XR ---
EXAM DATE: 07/31/2018 11:19 AM EDT AGE/SEX: 88 years / Male INDICATIONS: Shortness of breath. CLINICAL DATA: This is the patient's subsequent encounter. Patient reports that signs and symptoms h ave been present for 1 day and indicates a pain score of 0/10. MEDICAL/SURGICAL HISTORY: . Chronic obstructive pulmonary disease. Carcinoma, prostatic. . Lucas endectomy. Tonsillectomy. COMPARISON: [facility], CHEST SINGLE AP, 12/05/2013. . FINDINGS: A single AP erect portable view of the chest was obtained and demonstrates mild hazy perihilar and bi basilar opacities with no focal consolidation or effusion. The heart size is at the upper limits of n ormal. The bony thorax remains intact. There are overlying electrocardiogram leads. CONCLUSION: 1. Mild hazy perihilar and bibasilar opacities which could represent early pulmonary edema. 2. No consolidation or effusion. Electronically signed by: Yonatan Damico MD 07/31/2018 11:22 AM EDT
[2018-07-31] MEDS: Heparin - SQ 10,000 UNITS/ML Vial SQ SCH (12:29)
[2018-07-31] MEDS: Phenytoin 50 MG Chewable Tablet PO SCH ×2 (16:12→20:51)
--- NOTE | 2018-07-31 17:44 | P.DCO ---
- Diagnosis (1) Calculus, ureteral Status: Acute (2) Obstructive uropathy Status: Acute - Physical Therapy Order: Evaluate and treat, Improve ambulation, Strength and gait training - Home Health Nursing Order: Medical education, CHF education, Medication education-adverse effect - Case Management Consult Yes - Certification I have seen patient Luis Solares on 07/31/18. My clinical findings support the need for the requested home health care services because: Deconditioned with increased weakness I certify that my clinical findings support that this patient is homebound because: Unsteady gait/balance
[2018-08-01] MEDS: Heparin - SQ 10,000 UNITS/ML Vial SQ SCH ×3 (00:08→23:23)
[2018-08-01] MEDS: Piperacil/Tazo 3.375 GM Premix 50 ML IV.SIG SCH (03:34)
[2018-08-01 07:51] LABS: Calcium 8.1 mg/dL (8.5-10.1); Carbon Dioxide 20.8 meq/L (21.0-32.0); Magnesium 2.1 mg/dL (1.5-2.5); Potassium 4.2 meq/L (3.5-5.1)
[2018-08-01 07:55] LABS: Baso # (Auto) 0.1 th/mm3 (0.0-0.2); Baso % (Auto) 0.2 % (0.0-2.0); Eos # (Auto) 0.1 th/mm3 (0.0-0.4); Eos % (Auto) 0.5 % (0.0-4.0); Hemoglobin 13.2 gm/dL (13.0-17.0); Lymph # (Auto) 1.4 th/mm3 (1.0-4.8); Lymph % (Auto) 5.1 % (9.0-44.0); Mean Corpuscular HGB Conc 34.7 % (32.0-36.0); Mean Corpuscular Hemoglobin 33.3 pg (27.0-34.0); Mean Corpuscular Volume 96.2 fL (80.0-100.0); Mean Platelet Volume 10.1 fL (7.0-11.0); Mono # (Auto) 1.6 th/mm3 (0.0-0.9); Mono % (Auto) 6.1 % (0.0-8.0); Neut # (Auto) 23.5 th/mm3 (1.8-7.7); Neut % (Auto) 88.1 % (16.0-70.0); Platelet Count 362 th/mm3 (150-450); Red Blood Count 3.95 mil/mm3 (4.50-5.90); Red Cell Distribution Width 15.5 % (11.6-17.2); White Blood Count 26.7 th/mm3 (4.0-11.0)
[2018-08-01] MEDS: Insulin NovoLOG Aspart Correctional Sugar Inj SQ SCH ×4 (08:14→20:40)
[2018-08-01 08:26] LABS: Ovalocytes 1+; Platelet Estimate Normal (Normal); Platelet Morphology Normal (Normal); Toxic Granulation 3+
--- NOTE | 2018-08-01 09:39 | P.PN ---
Subjective Interval history: Follow-up ileus. He feels better denies abdominal pain but still feels distended. He has a rectal tube. Tolerating diet. BP slightly up. Patient fell last night states he lost his balance no premonitory symptoms. Sustained scratch on the left hip and a tear on the right forearm Physical Exam Vital signs: Vital Signs 07/31/18 11:58 07/31/18 13:29 07/31/18 15:37 Temperature 98.9 F 97 F L Pulse Rate 71 74 80 Respiratory Rate 20 18 20 Blood Pressure 172/79 H 180/80 H Pulse Oximetry 90 L 92 L 07/31/18 18:00 07/31/18 18:10 07/31/18 19:00 Temperature Pulse Rate 87 84 87 Respiratory Rate 16 Blood Pressure 195/84 H 190/81 H Pulse Oximetry 07/31/18 20:00 07/31/18 22:30 07/31/18 22:45 Temperature 100.0 F H 99.7 F H 99.7 F H Pulse Rate 84 80 80 Respiratory Rate 18 18 18 Blood Pressure 171/78 H 152/67 H 152/67 H Pulse Oximetry 93 L 92 L 92 L 08/01/18 00:00 08/01/18 00:30 08/01/18 00:51 Temperature 99.4 F 99.4 F Pulse Rate 74 81 81 Respiratory Rate 18 18 Blood Pressure 160/72 H 160/72 H Pulse Oximetry 91 L 08/01/18 01:51 08/01/18 02:51 08/01/18 04:00 Temperature 99 F 97.9 F 98.1 F Pulse Rate 85 82 77 Respiratory Rate 18 18 18 Blood Pressure 174/77 H 159/77 H 163/77 H Pulse Oximetry 91 L 94 L 92 L 08/01/18 06:51 08/01/18 07:36 08/01/18 08:00 Temperature 98.1 F 98.7 F Pulse Rate 85 85 77 Respiratory Rate 18 19 20 Blood Pressure 163/77 H 162/69 H Pulse Oximetry 92 L 98 Intake & Output 07/31/18 08/01/18 08/01/18 18:59 06:59 18:59 Intake Total 50 / 50 340 / 340 240 / 240 Output Total 850 / 850 200 / 200 Balance 50 / 50 -510 / -510 40 / 40 Weight 82.2 kg Intake: IV 50 / 50 100 / 100 Zosyn 3.375 GM Premix 50 ML @ 50 / 50 100 / 100 100 mls/hr IV.SIG Q6H ELAN Rx#: [id number] Oral 240 / 240 240 / 240 Output: Urine 850 / 850 200 / 200 Other: Date of Last Bowel Movement 07/26/18 Narrative: GENERAL: WN, WD elderly male resting in bed SKIN: Warm and dry without rash or jaundice. Skin tear right forearm HEART: RRR no m/r/g. LUNGS: CTAB without wheezes or crackles. ABDOMEN: +BS, softer, distended , tympanitic, l no tenderness EXTREMITIES: No LE edema. 2+ pedal pulses. NEURO: Awake and alert. No abnormal motor activity. UE and LE strength 5/5. No pronator drift. CN II-XII intact. Results - Labs CBC & Chem 7: 08/01/18 06:50 08/01/18 06:50 Laboratory Results - last 24 hr 07/31/18 07/31/18 07/31/18 09:11 09:11 09:11 CBC w Diff WBC RBC Hgb Hct MCV MCH MCHC RDW Plt Count MPV Neut % (Auto) Lymph % (Auto) [place] % (Auto) Eos % (Auto) Baso % (Auto) Neut # (Auto) Lymph # (Auto) [place] # (Auto) Eos # (Auto) Baso # (Auto) WBC Differential Manual diff final Diff Scan Seg Neuts % (Manual) 84 H Band Neuts % (Manual) 9 H Lymphocytes % (Manual) 4 L Monocytes % (Manual) 2 Eosinophils % (Manual) 1 Abs Neuts (Manual) 27.1 H Differential Comment Toxic Granulation Platelet Estimate Normal Platelet Morphology Normal Ovalocytes Sodium 137 Potassium 5.6 H D Chloride 105 Carbon Dioxide 22.8 Anion Gap 9 BUN 44 H Creatinine 3.40 H Estimated GFR 17 L POC Glucose Random Glucose 283 H Calcium 8.4 L Magnesium Total Creatine Kinase 210 B-Natriuretic Peptide 07/31/18 07/31/18 07/31/18 09:11 16:42 20:51 CBC w Diff WBC RBC Hgb Hct MCV MCH MCHC RDW Plt Count MPV Neut % (Auto) Lymph % (Auto) [place] % (Auto) Eos % (Auto) Baso % (Auto) Neut # (Auto) Lymph # (Auto) [place] # (Auto) Eos # (Auto) Baso # (Auto) WBC Differential Diff Scan Seg Neuts % (Manual) Band Neuts % (Manual) Lymphocytes % (Manual) Monocytes % (Manual) Eosinophils % (Manual) Abs Neuts (Manual) Differential Comment Toxic Granulation Platelet Estimate Platelet Morphology Ovalocytes Sodium Potassium Chloride Carbon Dioxide Anion Gap BUN Creatinine Estimated GFR POC Glucose 269 H 298 H Random Glucose Calcium Magnesium Total Creatine Kinase B-Natriuretic Peptide 93 08/01/18 08/01/18 08/01/18 06:50 06:50 07:43 CBC w Diff Slide review pending WBC 26.7 H RBC 3.95 L Hgb 13.2 Hct 38.0 L MCV 96.2 MCH 33.3 MCHC 34.7 RDW 15.5 Plt Count 362 MPV 10.1 Neut % (Auto) 88.1 H Lymph % (Auto) 5.1 L [place] % (Auto) 6.1 Eos % (Auto) 0.5 Baso % (Auto) 0.2 Neut # (Auto) 23.5 H Lymph # (Auto) 1.4 [place] # (Auto) 1.6 H Eos # (Auto) 0.1 Baso # (Auto) 0.1 WBC Differential . Diff Scan Auto diff confirmed Seg Neuts % (Manual) Band Neuts % (Manual) Lymphocytes % (Manual) Monocytes % (Manual) Eosinophils % (Manual) Abs Neuts (Manual) Differential Comment . Toxic Granulation 3+ H Platelet Estimate Normal Platelet Morphology Normal Ovalocytes 1+ H Sodium 141 Potassium 4.2 D Chloride 108 H Carbon Dioxide 20.8 L Anion Gap 12 BUN 51 H Creatinine 4.00 H Estimated GFR 14 L POC Glucose 211 H Random Glucose 230 H Calcium 8.1 L Magnesium 2.1 Total Creatine Kinase B-Natriuretic Peptide Microbiology 07/29/18 19:49 Clean Catch Urine Urine Culture - Final 50-100,000 cfu/mL mixed gram positive audi (probable contaminants) - Imaging Impressions Chest X-Ray 07/31/18 00:00 CONCLUSION: 1. Mild hazy perihilar and bibasilar opacities which could represent early pulmonary edema. 2. No consolidation or effusion. - Procedures None Assessment and Plan - Assessment (1) Calculus, ureteral Code(s): N20.1 - Calculus of ureter Status: Acute (2) Obstructive uropathy Code(s): N13.9 - Obstructive and reflux uropathy, unspecified Status: Acute (3) Urinary tract infection Code(s): N39.0 - Urinary tract infection, site not specified Status: Acute - Plan 88-year-old male with history of IDDM, HTN, HLD, prostate cancer, and CKD presented on 07/29 with abdominal pain. U/A with evidence of infection and CT A/P showed left ureteral stone with mild obstructive uropathy. 1. UTI with sepsis - U/A with leukocyte esterase, protein, blood, bacteria - Urine culture pending - Persistent leukocytosis - meeting sepsis criteria - Was started on Rocephin but then patient developed an oropharyngeal dystonic type reaction so antibiotic was changed to Zosyn - Continue to follow cultures 2. Urolithiasis with mild obstructive uropathy - CT A/P with 3 mm left ureteral stent with associated mild obstructive uropathy - IV fluids if no evidence of fluid overload - Pain control - Antiemetics - Flomax - Given some degree of obstruction and associated UTI consulted urology recommended medical mgt as pt hi risk and expected to pass stone. 3. Involuntary mouth movements, dystonia, jaw tremors - Per neuro possible with Dilaudid - D/C Dilaudid, change Rocephin to Zosyn -Status post swallowing eval - Neuro consulted - Stat CT head done this morning negative - MRI no lesion - Abnormal EEG vs artifact, ct dilantin per neuro. No driving 4. IDDM. Hyperglycemic restart long-acting insulin - SSI per protocol 5. HTN - BPs running high - Resume home amlodipine - Holding home ARB and thiazide in light of possible ALY -Adjust hydralazine - Clonidine PRN - Continue to monitor and adjust meds as needed 6. Acute on CKD stage 3 with hyperkalemia. Improved hyperkalemia but creatinine continues to rise - Restart IV fluids - Avoid nephrotoxic agents - Monitor renal function. Consider renal consult - Status post Kayexalate 7. HLD - Resume home statin 8. Gaseous distention likely ileus. Lactic acid within normal limits. Improving continue E.E.S., Reglan and bowel regimen. Rectal tube, consider GI consult. 9. Reported shortness of breath which patient denied. BNP within normal limits. Chest x-ray suggest fluid overload. Clinically not in failure. We will continue to monitor especially on IV hydration DVT prophylaxis: heparin Fall precautions. PT eval (3) Urinary tract infection Qualifiers: Urinary tract infection type: site unspecified Hematuria presence: with hematuria Qualified Code(s): N39.0 - Urinary tract infection, site not specified; R31.9 - Hematuria, unspecified
[2018-08-01] MEDS: Phenytoin Sodium 100 MG Capsule PO SCH ×2 (10:38→20:51)
[2018-08-01] MEDS: amLODIPine 10 MG Tablet PO SCH (10:38)
[2018-08-01] MEDS: Polyethylene Glycol 3350 17 GM Packet PO SCH (10:38)
[2018-08-01] MEDS: Senna/Docusate Sodium 8.6/50 MG Tablet PO SCH ×2 (10:38→20:52)
[2018-08-01] MEDS: Phenytoin 50 MG Chewable Tablet PO SCH ×2 (10:39→20:52)
[2018-08-01] MEDS: Propranolol 10 MG Tablet PO SCH ×2 (10:40→20:52)
[2018-08-01] MEDS: Erythromycin Ethylsuccinate Susp 400 MG/5ML 100 ML Bottle PO SCH ×4 (10:41→23:16)
[2018-08-01] MEDS: Budesonide-Formoterol 160/4.5 MCG 6 GM Inhaler INH SCH ×2 (10:44→20:40)
[2018-08-01] MEDS: hydrALAZINE 25 MG Tablet PO SCH (11:18)
[2018-08-01] MEDS: Sodium Chloride 0.45 % Inj 1,000 ML IV.CONT SCH ×2 (11:27→20:50)
[2018-08-01] MEDS: Piperacil/Tazo 2.25 GM Premix 50 ML IV.SIG SCH ×4 (11:34→23:18)
[2018-08-01] MEDS: hydrALAZINE 50 MG Tablet PO SCH ×3 (11:41→18:42)
[2018-08-01] MEDS: Insulin Detemir Inj 1,000 UNIT/10 ML Vial SQ SCH (11:42)
[2018-08-02] MEDS: Sodium Chloride 0.45 % Inj 1,000 ML IV.CONT SCH ×2 (03:36→20:48)
[2018-08-02] MEDS: Erythromycin Ethylsuccinate Susp 400 MG/5ML 100 ML Bottle PO SCH ×5 (04:09→21:20)
[2018-08-02] MEDS: Piperacil/Tazo 2.25 GM Premix 50 ML IV.SIG SCH ×5 (04:09→21:21)
[2018-08-02 07:11] LABS: Potassium 3.8 meq/L (3.5-5.1)
[2018-08-02 07:15] LABS: Calcium 7.8 mg/dL (8.5-10.1); Carbon Dioxide 19.5 meq/L (21.0-32.0); Magnesium 2.1 mg/dL (1.5-2.5)
[2018-08-02 07:16] LABS: Baso # (Auto) 0.1 th/mm3 (0.0-0.2); Baso % (Auto) 0.3 % (0.0-2.0); Eos # (Auto) 0.3 th/mm3 (0.0-0.4); Eos % (Auto) 1.4 % (0.0-4.0); Hematocrit 36.7 % (39.0-51.0); Hemoglobin 12.6 gm/dL (13.0-17.0); Lymph # (Auto) 1.5 th/mm3 (1.0-4.8); Lymph % (Auto) 6.4 % (9.0-44.0); Mean Corpuscular HGB Conc 34.3 % (32.0-36.0); Mean Corpuscular Volume 96.1 fL (80.0-100.0); Mean Platelet Volume 9.7 fL (7.0-11.0); Mono # (Auto) 1.4 th/mm3 (0.0-0.9); Mono % (Auto) 6.1 % (0.0-8.0); Neut # (Auto) 19.7 th/mm3 (1.8-7.7); Neut % (Auto) 85.8 % (16.0-70.0); Platelet Count 356 th/mm3 (150-450); Red Blood Count 3.82 mil/mm3 (4.50-5.90); Red Cell Distribution Width 15.1 % (11.6-17.2)
[2018-08-02] MEDS: Phenytoin Sodium 100 MG Capsule PO SCH ×2 (09:07→20:49)
[2018-08-02] MEDS: Phenytoin 50 MG Chewable Tablet PO SCH ×2 (09:07→20:49)
[2018-08-02] MEDS: amLODIPine 10 MG Tablet PO SCH (09:08)
[2018-08-02] MEDS: Propranolol 10 MG Tablet PO SCH ×2 (09:08→20:49)
[2018-08-02] MEDS: Senna/Docusate Sodium 8.6/50 MG Tablet PO SCH (09:08)
[2018-08-02] MEDS: hydrALAZINE 50 MG Tablet PO SCH ×3 (09:09→17:12)
[2018-08-02] MEDS: Polyethylene Glycol 3350 17 GM Packet PO SCH (09:10)
[2018-08-02] MEDS: Budesonide-Formoterol 160/4.5 MCG 6 GM Inhaler INH SCH ×2 (09:10→20:49)
[2018-08-02] MEDS: Insulin NovoLOG Aspart Correctional Sugar Inj SQ SCH ×4 (09:10→20:52)
[2018-08-02] MEDS: Insulin Detemir Inj 1,000 UNIT/10 ML Vial SQ SCH (09:11)
[2018-08-02] MEDS: Lactobacillus Acidophilus/L. Spores Tablet PO SCH ×2 (12:36→17:12)
[2018-08-02] MEDS: Heparin - SQ 10,000 UNITS/ML Vial SQ SCH (12:37)
--- NOTE | 2018-08-02 15:01 | P.PN ---
Subjective Interval history: Follow-up kidney dysfunction. Creatinine continues to rise denies uremic symptoms. Developed diarrhea since yesterday. Improved abdominal pain. Discussed with nephrology Physical Exam Vital signs: Vital Signs 08/01/18 16:00 08/01/18 18:51 08/01/18 19:20 Temperature 97.4 F L 97.4 F L Pulse Rate 64 70 73 Respiratory Rate 20 20 18 Blood Pressure 126/58 L 126/58 L Pulse Oximetry 95 95 92 L 08/01/18 20:00 08/02/18 00:00 08/02/18 04:00 Temperature 98.5 F 99.3 F 98.5 F Pulse Rate 74 84 93 H Respiratory Rate 20 20 20 Blood Pressure 134/64 156/70 H 158/74 H Pulse Oximetry 94 L 92 L 91 L 08/02/18 08:00 08/02/18 09:11 08/02/18 12:00 Temperature 98.2 F 98.8 F Pulse Rate 92 H 90 Respiratory Rate 19 19 Blood Pressure 159/72 H 152/84 H Pulse Oximetry 93 L 93 L 94 L Intake & Output 08/01/18 08/02/18 08/02/18 18:59 06:59 18:59 Intake Total 530 / 530 2230 / 2230 50 / 50 Output Total 500 / 500 200 / 200 Balance 30 / 30 2029 / 2029 50 / 50 Intake: IV 50 / 50 2170 / 2170 50 / 50 1/2 Normal Saline Inj 1,000 ML 1000 / 1000 @ 60 mls/hr IV.CONT .[id number] ELAN Rx#:[id number] Zosyn 2.25 GM Premix 50 ML @ 50 / 50 100 / 100 50 / 50 100 mls/hr IV.SIG Q6H ELAN Rx#: [id number] Oral 480 / 480 60 / 60 Output: Urine 500 / 500 200 / 200 Other: # Voids 3 2 Date of Last Bowel Movement 08/01/18 08/02/18 # Bowel Movements 3 2 Narrative: GENERAL: WN, WD elderly male resting in bed SKIN: Warm and dry without rash or jaundice. Skin tear right forearm HEART: RRR no m/r/g. LUNGS: CTAB without wheezes or crackles. ABDOMEN: +BS, softer, sl distended , no tenderness EXTREMITIES: No LE edema. 2+ pedal pulses. NEURO: Awake and alert. No abnormal motor activity. UE and LE strength 5/5. No pronator drift. CN II-XII intact. Results - Labs CBC & Chem 7: 08/02/18 06:15 08/02/18 06:15 Laboratory Results - last 24 hr 08/01/18 08/01/18 08/02/18 16:29 20:39 06:15 CBC w Diff Slide review pending WBC 23.0 H RBC 3.82 L Hgb 12.6 L Hct 36.7 L MCV 96.1 MCH 33.0 MCHC 34.3 RDW 15.1 Plt Count 356 MPV 9.7 Neut % (Auto) 85.8 H Lymph % (Auto) 6.4 L [place] % (Auto) 6.1 Eos % (Auto) 1.4 Baso % (Auto) 0.3 Neut # (Auto) 19.7 H Lymph # (Auto) 1.5 [place] # (Auto) 1.4 H Eos # (Auto) 0.3 Baso # (Auto) 0.1 WBC Differential . Diff Scan Auto diff confirmed Differential Comment . Sodium Potassium Chloride Carbon Dioxide Anion Gap BUN Creatinine Estimated GFR POC Glucose 207 H 112 H Random Glucose Calcium Magnesium Urine Eosinophils 08/02/18 08/02/18 08/02/18 06:15 07:26 10:45 CBC w Diff WBC RBC Hgb Hct MCV MCH MCHC RDW Plt Count MPV Neut % (Auto) Lymph % (Auto) [place] % (Auto) Eos % (Auto) Baso % (Auto) Neut # (Auto) Lymph # (Auto) [place] # (Auto) Eos # (Auto) Baso # (Auto) WBC Differential Diff Scan Differential Comment Sodium 140 Potassium 3.8 Chloride 106 Carbon Dioxide 19.5 L Anion Gap 15 BUN 59 H Creatinine 4.70 H Estimated GFR 12 L POC Glucose 152 H Random Glucose 162 H Calcium 7.8 L Magnesium 2.1 Urine Eosinophils None seen 08/02/18 11:52 CBC w Diff WBC RBC Hgb Hct MCV MCH MCHC RDW Plt Count MPV Neut % (Auto) Lymph % (Auto) [place] % (Auto) Eos % (Auto) Baso % (Auto) Neut # (Auto) Lymph # (Auto) [place] # (Auto) Eos # (Auto) Baso # (Auto) WBC Differential Diff Scan Differential Comment Sodium Potassium Chloride Carbon Dioxide Anion Gap BUN Creatinine Estimated GFR POC Glucose 205 H Random Glucose Calcium Magnesium Urine Eosinophils - Procedures None Assessment and Plan - Assessment (1) Calculus, ureteral Code(s): N20.1 - Calculus of ureter Status: Acute (2) Obstructive uropathy Code(s): N13.9 - Obstructive and reflux uropathy, unspecified Status: Acute (3) Urinary tract infection Code(s): N39.0 - Urinary tract infection, site not specified Status: Acute - Plan 88-year-old male with history of IDDM, HTN, HLD, prostate cancer, and CKD presented on 07/29 with abdominal pain. U/A with evidence of infection and CT A/P showed left ureteral stone with mild obstructive uropathy. 1. UTI with sepsis - U/A with leukocyte esterase, protein, blood, bacteria - Urine culture with contaminants - Persistent leukocytosis now with diarrhea on bowel regimen which has been discontinued. Start Lactinex and obtain C. difficile - meeting sepsis criteria - Was started on Rocephin but then patient developed an oropharyngeal dystonic type reaction so antibiotic was changed to Zosyn 2. Urolithiasis with mild obstructive uropathy - CT A/P with 3 mm left ureteral stent with associated mild obstructive uropathy - IV fluids if no evidence of fluid overload - Pain control - Antiemetics - Flomax - Given some degree of obstruction and associated UTI consulted urology recommended medical mgt as pt hi risk and expected to pass stone. 3. Involuntary mouth movements, dystonia, jaw tremors. Resolved - Per neuro likely secondary to Dilaudid - D/C Dilaudid, change Rocephin to Zosyn -Status post swallowing eval - Neuro consulted - Stat CT head done this morning negative - MRI no lesion - Abnormal EEG vs artifact, ct dilantin per neuro. No driving 4. IDDM. A1c 7.5 hyperglycemic restart long-acting insulin - SSI per protocol 5. HTN - BPs improving - Resume home amlodipine - Holding home ARB and thiazide in light of possible ALY - Adjusted hydralazine - Clonidine PRN - Continue to monitor and adjust meds as needed 6. Acute on CKD stage 3 with hyperkalemia. Worsening renal function likely from obstructive uropathy, ileus and possibly from antibiotic use - Restart IV fluids - Avoid nephrotoxic agents - Monitor renal function. Discussed with renal - Status post Kayexalate 7. HLD - Resume home statin 8. Gaseous distention likely ileus. Lactic acid within normal limits. Resolving continue E.E.S. discontinue Reglan and bowel regimen secondary to diarrhea. 9. Reported shortness of breath which patient denied. BNP within normal limits. Chest x-ray suggest fluid overload. Clinically not in failure. We will continue to monitor especially on IV hydration DVT prophylaxis: heparin Fall precautions. PT recommends possible home health care with wall walker (3) Urinary tract infection Qualifiers: Urinary tract infection type: site unspecified Hematuria presence: with hematuria Qualified Code(s): N39.0 - Urinary tract infection, site not specified; R31.9 - Hematuria, unspecified
--- NOTE | 2018-08-02 15:16 | US ---
EXAM DATE: 08/02/2018 2:39 PM EDT AGE/SEX: 88 years / Male INDICATIONS: Elevated lab values. CLINICAL DATA: This is the patient's initial encounter. Patient reports that signs and symptoms have been present for 1 day and indicates a pain score of 0/10. MEDICAL/SURGICAL HISTORY: Hypertension. Chronic kidney disease. Diabetes. Hyperlipidemia. Prost ate cancer. None. COMPARISON: [facility], CT ABDOMEN & PELVIS W/O CONTRAST, 07/30/2018. . MEASUREMENTS: Right Kidney:__9.9 x 5.5 x 5.3 cm Left Kidney:__12.3 x 5.2 x 6.3 cm FINDINGS: Right Kidney: Normal echotexture and cortical thickness. No mass or hydronephrosis. Left Kidney: Normal echotexture and cortical thickness. No mass or hydronephrosis. Bladder: Within normal limits given the degree of distension. Other: None. CONCLUSION: 1. Normal renal ultrasound Electronically signed by: Tomas Lynch MD 08/02/2018 3:15 PM EDT
--- NOTE | 2018-08-02 16:56 | P.CONNP ---
History of Present Illness Service: nephrology Reason for Consult: Acute on chronic kidney disease Primary Care Provider: [facility] Chief Complaint: Speech change, tremors History of Present Illness: Patient was admitted with abdominal pain. Creatinine was 2.1 on admission. It has progressively increased to 4.7. He has leukocytosis. He was thought to have UTI, was placed on Ceftriaxone, patient developed some type of involuntary movements, so antibiotic was changed to Zosyn. On admission, he had CT of the abdomen which revealed left ureteral stone, 3 mm in size. His abdominal pain has improved. He has history of diabetes, hypertension and prostate cancer. Patient reports that he was seeing a floral designer salesperson in [place] in [place]. His GFR was around 44-52 in 2013 Review of Systems Constitutional: Reports anorexia, Reports malaise, Denies night sweats, Denies weight gain, Denies weight loss Eyes: Denies blind spots, Denies blurry vision Cardiovascular: Denies chest pain, Denies chest pain with activity Respiratory: Denies coughing up blood Gastrointestinal: Reports abdominal pain, Denies black, tarry stools, Denies coffee ground vomit Comments: having diarrhea. Genitourinary: Denies blood in urine PMFSH - History History Provided By: Patient - Medical History Medical History: Medical History (Last Reviewed 07/31/18 @ 08:32 by Cosme Eduardo) CKD (chronic kidney disease) Diabetes Hyperlipidemia Hypertension Prostate cancer - Family History Family History: Family History (Last Updated 07/30/18 @ 13:49 by Mague Estrada MD) Sister Diabetes - Tobacco History Second Hand Smoke Exposure: No Tobacco Use In Past 30 Days: No Smoking Status: Never smoker Tobacco Type: Cigarettes - Alcohol History How Often Do You Have a Drink Containing Alcohol: Never - Substance Use History Substance History: No History of Abuse - Travel History Recent Travel in the [place] Within the Last 8 Weeks: No Recent Travel Out of the Country Within the Last 8 Weeks: No - Immunization History Tetanus Immunization: Unsure Medications and Allergies Active Medications: Active Medications Acetaminophen (Tylenol) 650 mg PO Q4H PRN PRN Reason: Temp > 100.4 Amlodipine Besylate (Norvasc) 10 mg PO DAILY [facility] Last Admin: 08/02/18 09:08 Dose: 10 mg Aspirin (Ecotrin) 81 mg PO DAILY [facility] Last Admin: 08/02/18 09:08 Dose: 81 mg Bisacodyl (Dulcolax Supp) 10 mg RECTAL DAILY PRN PRN Reason: SEVERE CONSITIPATION Budesonide/Formoterol Fumarate (Symbicort 160/4.5 Mcg Inh) 2 puff INH BID [facility] Last Admin: 08/02/18 09:10 Dose: 2 puff Clonidine HCl (Catapres) 0.1 mg PO Q6H PRN PRN Reason: SBP>180, DBP>100, HR>65 Last Admin: 07/31/18 18:03 Dose: 0.1 mg Dextrose (D50w Vial) 50 ml IV.PUSH UNSCH PRN PRN Reason: PER HYPOGLYCEMIA PROTOCOL Erythromycin Ethylsuccinate (Ees 400 Mg/5 Ml Liq) 400 mg PO Q8HR [facility] Last Admin: 08/02/18 13:47 Dose: 400 mg Glucagon (Glucagon Inj) 1 mg OTHER PRN PRN PRN Reason: for Hypoglycemia Protocol Heparin Sodium (Porcine) (Heparin Inj) 5,000 units SQ Q12H [facility] Last Admin: 08/02/18 12:37 Dose: 5,000 units Hydralazine HCl (Apresoline) 50 mg PO TID [facility] Last Admin: 08/02/18 12:36 Dose: 50 mg Piperacillin/Tazobactam/Dextrose (Zosyn 2.25 Gm Premix) 50 mls @ 100 mls/hr IV.SIG Q6H [facility] Last Admin: 08/02/18 16:23 Dose: 100 mls/hr Sodium Chloride (1/2 Normal Saline Inj) 1,000 mls @ 75 mls/hr IV.CONT .[id number] [facility] Last Admin: 08/02/18 03:36 Dose: Not Given Insulin Aspart (Novolog Insulin Correctional Sugar Inj) 0 unit SQ ACHS [facility]; Protocol Last Admin: 08/02/18 12:38 Dose: 3 unit Insulin Detemir (Levemir Inj) 10 unit SQ DAILY [facility] Last Admin: 08/02/18 09:11 Dose: 10 unit Lactobacillus Acidophilus (Lactinex) 1 tab PO TID [facility] Last Admin: 08/02/18 12:36 Dose: 1 tab Lactulose (Lactulose Liq) 30 ml PO DAILY PRN PRN Reason: SEVERE CONSITIPATION Naloxone HCl (Narcan Inj) 0.4 mg IV.PUSH UNSCH PRN PRN Reason: SEE LABEL COMMENTS Ondansetron HCl (Zofran Inj) 4 mg IV.PUSH Q6H PRN PRN Reason: NAUSEA OR VOMITING Phenytoin (Dilantin Infatabs Chewable) 50 mg PO BID [facility] Last Admin: 08/02/18 09:07 Dose: 50 mg Phenytoin Sodium (Dilantin) 100 mg PO BID [facility] Last Admin: 08/02/18 09:07 Dose: 100 mg Pravastatin Sodium (Pravachol) 10 mg PO DAILY [facility] Last Admin: 08/02/18 09:09 Dose: 10 mg Propranolol HCl (Inderal) 10 mg PO BID [facility] Last Admin: 08/02/18 09:08 Dose: 10 mg Sennosides (Senokot) 17.2 mg PO Q12H PRN PRN Reason: Moderate Constipation Sodium Chloride (Ns Flush) 2 ml IV.FLUSH PRN PRN PRN Reason: FLUSH AFTER USING IV ACCESS Last Admin: 07/31/18 05:09 Dose: 2 ml Tamsulosin HCl (Flomax) 0.4 mg PO DAILY [facility] Last Admin: 08/02/18 09:07 Dose: 0.4 mg Tramadol HCl (Ultram) 50 mg PO Q6H PRN PRN Reason: PAIN SCALE 1 TO 10 Last Admin: 08/02/18 04:10 Dose: 50 mg Allergies Allergy/AdvReac Type Severity Reaction Status Date / Time lisinopril Allergy Severe Shortness Verified 07/30/18 00:15 of Breath simvastatin Allergy Intermediate muscle Verified 07/30/18 00:15 aches Home Medications Medication Instructions Recorded Confirmed Type amlodipine 10 mg PO DAILY 07/29/18 07/29/18 History aspirin [Aspirin Low Dose] 81 mg PO DAILY 07/29/18 07/29/18 History budesonide-formoterol [Symbicort] 2 puff INHALATION BID 07/29/18 07/29/18 History cholecalciferol (vitamin D3) 1,000 unit PO DAILY 07/29/18 07/29/18 History [Vitamin D3] dextran 70-hypromellose 1 drp OPHTHALMIC (EYE) Q12H PRN 07/29/18 07/29/18 History [Artificial Tears (PF)] glipizide 10 mg PO BID 07/29/18 07/29/18 History hydrochlorothiazide 25 mg PO DAILY 07/29/18 07/29/18 History insulin glargine [Lantus U-100 10 unit SUBCUT DAILY 07/29/18 07/29/18 History Insulin] loratadine 10 mg PO DAILY 07/29/18 07/29/18 History lovastatin 10 mg PO DAILY 07/29/18 07/29/18 History multivitamin with minerals 1 tab PO DAILY 07/29/18 07/29/18 History valsartan 160 mg PO DAILY 07/29/18 07/29/18 History Exam Vital signs: Vital Signs 08/01/18 18:51 08/01/18 19:20 08/01/18 20:00 Temperature 97.4 F L 98.5 F Pulse Rate 70 73 74 Respiratory Rate 20 18 20 Blood Pressure 126/58 L 134/64 Pulse Oximetry 95 92 L 94 L 08/02/18 00:00 08/02/18 04:00 08/02/18 08:00 Temperature 99.3 F 98.5 F 98.2 F Pulse Rate 84 93 H 92 H Respiratory Rate 20 20 19 Blood Pressure 156/70 H 158/74 H 159/72 H Pulse Oximetry 92 L 91 L 93 L 08/02/18 09:11 08/02/18 12:00 Temperature 98.8 F Pulse Rate 90 Respiratory Rate 19 Blood Pressure 152/84 H Pulse Oximetry 93 L 94 L Intake & Output 08/01/18 08/02/18 08/02/18 18:59 06:59 18:59 Intake Total 530 / 530 2230 / 2230 50 / 50 Output Total 500 / 500 200 / 200 Balance 30 30 2029 / 2029 50 / 50 Intake: IV 50 / 50 2170 / 2170 50 / 50 1/2 Normal Saline Inj 1,000 ML 1000 / 1000 @ 60 mls/hr IV.CONT .[id number] [facility] Rx#:[id number] Zosyn 2.25 GM Premix 50 ML @ 50 / 50 100 / 100 50 / 50 100 mls/hr IV.SIG Q6H [facility] Rx#: [id number] Oral 480 / 480 60 / 60 Output: Urine 500 / 500 200 / 200 Other: # Voids 3 2 Date of Last Bowel Movement 08/01/18 08/02/18 # Bowel Movements 3 2 - Constitutional no acute distress - Routine HEENT Exam Head: Present: normocephalic, atraumatic Eye: Present: EOMI, PERRL ENT: Present: mucous membranes moist - Routine Neck Exam Present: supple, full ROM. Absent: JVD, carotid bruit, lymphadenopathy, thyromegaly - Routine Chest/Breast/Axilla Exam Axillae: Present: lymphadenopathy - Routine Respiratory Exam Present: CTA bilaterally - Routine Cardiovascular Exam Present: RRR, S1, S2 - Routine Abdominal Exam Comments: distended, hypoactive bowel sounds. - Routine Extremities Exam Absent: cyanosis, clubbing, edema - Routine Skin Exam Present: intact - Routine Neurological Exam Present: alert, oriented X3, CN II-XII intact, normal speech Results - Lab Results 08/02/18 06:15 08/02/18 06:15 Most recent lab results Calcium 7.8 mg/dL (8.5-10.1) L 08/02/18 06:15 Magnesium 2.1 mg/dL (1.5-2.5) 08/02/18 06:15 Assessment and Plan - Assessment (1) Acute worsening of stage 3 chronic kidney disease Code(s): N18.3 - Chronic kidney disease, stage 3 (moderate) Status: Acute Plan: Renal function has worsened since admission. It could be due to left ureteral obstruction due to stone, and hydronephrosis. It is possible that he has passed the stone. Renal US from today does not reveal hydronephrosis. Continue IVF. Avoid nephrotoxic agents. Monitor urine output and renal function No immediate need for dialysis. Continue IVF. (2) Calculus, ureteral Code(s): N20.1 - Calculus of ureter Status: Acute Plan: 3 mm stone in the left ureter. May have passed it? (3) Leukocytosis Code(s): D72.829 - Elevated white blood cell count, unspecified Status: Acute Plan: UTI? On Zosyn. - Attending Attestation Thanks for the consult. (3) Leukocytosis Qualifiers: Leukocytosis type: unspecified Qualified Code(s): D72.829 - Elevated white blood cell count, unspecified
[2018-08-03] MEDS: Piperacil/Tazo 2.25 GM Premix 50 ML IV.SIG SCH ×2 (03:40→09:07)
[2018-08-03] MEDS: Erythromycin Ethylsuccinate Susp 400 MG/5ML 100 ML Bottle PO SCH ×3 (05:04→23:56)
[2018-08-03 08:10] LABS: Baso # (Auto) 0.1 th/mm3 (0.0-0.2); Baso % (Auto) 0.4 % (0.0-2.0); Eos # (Auto) 0.7 th/mm3 (0.0-0.4); Eos % (Auto) 3.1 % (0.0-4.0); Hematocrit 39.3 % (39.0-51.0); Hemoglobin 13.3 gm/dL (13.0-17.0); Lymph # (Auto) 1.3 th/mm3 (1.0-4.8); Mean Corpuscular HGB Conc 33.8 % (32.0-36.0); Mean Corpuscular Hemoglobin 32.3 pg (27.0-34.0); Mean Corpuscular Volume 95.7 fL (80.0-100.0); Mono # (Auto) 1.1 th/mm3 (0.0-0.9); Neut # (Auto) 18.8 th/mm3 (1.8-7.7); Neut % (Auto) 85.5 % (16.0-70.0); Platelet Count 420 th/mm3 (150-450); Red Cell Distribution Width 15.6 % (11.6-17.2)
[2018-08-03 08:21] LABS: Potassium 4.2 meq/L (3.5-5.1)
[2018-08-03 08:24] LABS: Albumin 2.5 g/dL (3.4-5.0); Calcium 8.3 mg/dL (8.5-10.1); Carbon Dioxide 20.2 meq/L (21.0-32.0)
[2018-08-03 08:28] LABS: Phosphorus 4.6 mg/dL (2.5-4.9)
[2018-08-03] MEDS: Sodium Chloride 0.45 % Inj 1,000 ML IV.CONT SCH ×2 (08:58→23:56)
[2018-08-03] MEDS: Budesonide-Formoterol 160/4.5 MCG 6 GM Inhaler INH SCH ×2 (09:01→20:53)
[2018-08-03] MEDS: Insulin NovoLOG Aspart Correctional Sugar Inj SQ SCH ×4 (09:01→22:25)
[2018-08-03] MEDS: amLODIPine 10 MG Tablet PO SCH (09:03)
[2018-08-03] MEDS: Propranolol 10 MG Tablet PO SCH ×2 (09:03→20:51)
[2018-08-03] MEDS: Lactobacillus Acidophilus/L. Spores Tablet PO SCH ×3 (09:03→17:05)
[2018-08-03] MEDS: Phenytoin Sodium 100 MG Capsule PO SCH ×2 (09:04→20:52)
[2018-08-03] MEDS: Phenytoin 50 MG Chewable Tablet PO SCH ×2 (09:04→20:51)
[2018-08-03] MEDS: hydrALAZINE 50 MG Tablet PO SCH ×3 (09:06→17:05)
[2018-08-03] MEDS: Insulin Detemir Inj 1,000 UNIT/10 ML Vial SQ SCH (09:06)
[2018-08-03 09:11] LABS: Toxic Granulation 1+
--- NOTE | 2018-08-03 10:12 | P.PN ---
Subjective Interval history: Follow-up acute kidney injury. Complaining of diarrhea and left sided abdominal pain. No nausea or vomiting. He is voiding without difficulty. Physical Exam Vital signs: Vital Signs 08/02/18 12:00 08/02/18 16:00 08/02/18 20:00 Temperature 98.8 F 98.6 F 96.1 F L Pulse Rate 90 94 H 83 Respiratory Rate 19 19 18 Blood Pressure 152/84 H 161/79 H 169/77 H Pulse Oximetry 94 L 93 L 94 L 08/03/18 00:00 08/03/18 04:00 08/03/18 08:00 Temperature 98.7 F 97.4 F L 98.5 F Pulse Rate 78 82 78 Respiratory Rate 18 18 20 Blood Pressure 185/79 H 172/77 H 165/79 H Pulse Oximetry 92 L 92 L 93 L Intake & Output 08/02/18 08/03/18 08/03/18 18:59 06:59 18:59 Intake Total 2059 820 / 820 350 / 350 Balance 2059 820 / 820 350 / 350 Weight 82 kg Intake: IV 1100 / 1100 700 / 700 350 / 350 1/2 Normal Saline Inj 1,000 ML 1000 / 1000 600 / 600 350 / 350 @ 75 mls/hr IV.CONT .[id number] [facility] Rx#:[id number] Zosyn 2.25 GM Premix 50 ML @ 100 / 100 100 / 100 100 mls/hr IV.SIG Q6H [facility] Rx#: [id number] Oral 960 / 960 120 / 120 Other: # Voids 5 4 Date of Last Bowel Movement 08/02/18 # Bowel Movements 3 1 Narrative: GENERAL: WN, WD elderly male resting in bed SKIN: Warm and dry without rash or jaundice. Skin tear right forearm HEART: RRR no m/r/g. LUNGS: CTAB without wheezes or crackles. ABDOMEN: +BS, softer, sl distended , slight tenderness left mid EXTREMITIES: No LE edema. 2+ pedal pulses. NEURO: Awake and alert. No abnormal motor activity. UE and LE strength 5/5. No pronator drift. CN II-XII intact. Results - Labs CBC & Chem 7: 08/03/18 07:57 08/03/18 07:57 Laboratory Results - last 24 hr 08/02/18 08/02/18 08/02/18 10:45 10:45 11:52 CBC w Diff WBC RBC Hgb Hct MCV MCH MCHC RDW Plt Count MPV Neut % (Auto) Lymph % (Auto) Dodge % (Auto) Eos % (Auto) Baso % (Auto) Neut # (Auto) Lymph # (Auto) Dodge # (Auto) Eos # (Auto) Baso # (Auto) WBC Differential Diff Scan Differential Comment Toxic Granulation Sodium Potassium Chloride Carbon Dioxide Anion Gap BUN Creatinine Estimated GFR POC Glucose 205 H Random Glucose Calcium Phosphorus Albumin Urine Eosinophils None seen Stl C.difficile DNA Amp Negative St C. diff Tox Epid 027 Negative Phenytoin 08/02/18 08/02/18 08/03/18 16:40 20:52 07:56 CBC w Diff WBC RBC Hgb Hct MCV MCH MCHC RDW Plt Count MPV Neut % (Auto) Lymph % (Auto) Dodge % (Auto) Eos % (Auto) Baso % (Auto) Neut # (Auto) Lymph # (Auto) Dodge # (Auto) Eos # (Auto) Baso # (Auto) WBC Differential Diff Scan Differential Comment Toxic Granulation Sodium Potassium Chloride Carbon Dioxide Anion Gap BUN Creatinine Estimated GFR POC Glucose 189 H 188 H 171 H Random Glucose Calcium Phosphorus Albumin Urine Eosinophils Stl C.difficile DNA Amp St C. diff Tox Epid 027 Phenytoin 08/03/18 08/03/18 08/03/18 07:57 07:57 07:57 CBC w Diff Slide review pending WBC 22.0 H RBC 4.10 L Hgb 13.3 Hct 39.3 MCV 95.7 MCH 32.3 MCHC 33.8 RDW 15.6 Plt Count 420 MPV 9.0 Neut % (Auto) 85.5 H Lymph % (Auto) 6.0 L Dodge % (Auto) 5.0 Eos % (Auto) 3.1 Baso % (Auto) 0.4 Neut # (Auto) 18.8 H Lymph # (Auto) 1.3 Dodge # (Auto) 1.1 H Eos # (Auto) 0.7 H Baso # (Auto) 0.1 WBC Differential . Diff Scan Auto diff confirmed Differential Comment . Toxic Granulation 1+ H Sodium 138 Potassium 4.2 Chloride 103 Carbon Dioxide 20.2 L Anion Gap 15 BUN 63 H Creatinine 4.90 H Estimated GFR 11 L POC Glucose Random Glucose 183 H Calcium 8.3 L Phosphorus 4.6 Albumin 2.5 L Urine Eosinophils Stl C.difficile DNA Amp St C. diff Tox Epid 027 Phenytoin 10.0 Microbiology 08/02/18 10:45 Stool Enteric Pathogens (PCR) - Final No enteric pathogens detected by PCR (No Salmonella sp., Shigella sp., Campylobacter sp., Yersinia enterocolitica, Vibrio sp., Norovirus, or EHEC (Shiga Toxin 1 or Shiga Toxin 2) detected. - Imaging Impressions Abdomen/Bladder Ultrasound 08/02/18 00:00 CONCLUSION: 1. Normal renal ultrasound - Procedures None Assessment and Plan - Assessment (1) Calculus, ureteral Code(s): N20.1 - Calculus of ureter Status: Acute (2) Obstructive uropathy Code(s): N13.9 - Obstructive and reflux uropathy, unspecified Status: Acute (3) Urinary tract infection Code(s): N39.0 - Urinary tract infection, site not specified Status: Acute - Plan 88-year-old male with history of IDDM, HTN, HLD, prostate cancer, and CKD presented on 07/29 with abdominal pain. U/A with evidence of infection and CT A/P showed left ureteral stone with mild obstructive uropathy. 1. Leukocytosis. Improving but still significantly elevated. - Urine culture with contaminants - C. difficile negative. - Obtain blood cultures 2. Urolithiasis with mild obstructive uropathy - CT A/P with 3 mm left ureteral stent with associated mild obstructive uropathy - IV fluids if no evidence of fluid overload - Pain control - Antiemetics - Flomax - Given some degree of obstruction and associated UTI consulted urology recommended medical mgt as pt hi risk and expected to pass stone. - Repeat ultrasound showed no hydronephrosis or stone 3. Involuntary mouth movements, dystonia, jaw tremors. Resolved - Per neuro likely secondary to Dilaudid - D/C Dilaudid, change Rocephin to Zosyn -Status post swallowing eval - Neuro consulted - Stat CT head done this morning negative - MRI no lesion - Abnormal EEG vs artifact, ct dilantin per neuro. corrected Dilantin level 13. No driving 4. IDDM. A1c 7.5 hyperglycemic restart long-acting insulin - SSI per protocol 5. HTN - BPs improving - Resume home amlodipine - Holding home ARB and thiazide in light of possible ALY - Adjusted hydralazine - Clonidine PRN - Continue to monitor and adjust meds as needed 6. Acute on CKD stage 3 with hyperkalemia. Worsening renal function likely from obstructive uropathy, ileus and diarrhea - Restart IV fluids - Avoid nephrotoxic agents - Monitor renal function. Discussed with renal - Status post Kayexalate 7. HLD - Resume home statin 8. Gaseous distention likely ileus. Lactic acid within normal limits. Resolving continue E.E.S. discontinue Reglan and bowel regimen secondary to diarrhea. Patient complaining of abdominal pain again today this could be related to diarrhea and or ileus. Will continue to monitor consider repeating imaging study 9. Reported shortness of breath which patient denied. BNP within normal limits. Chest x-ray suggest fluid overload. Clinically not in failure. We will continue to monitor especially on IV hydration DVT prophylaxis: heparin Fall precautions. PT recommends possible home health care with walker (3) Urinary tract infection Qualifiers: Urinary tract infection type: site unspecified Hematuria presence: with hematuria Qualified Code(s): N39.0 - Urinary tract infection, site not specified; R31.9 - Hematuria, unspecified
[2018-08-03] MEDS: Heparin - SQ 10,000 UNITS/ML Vial SQ SCH ×2 (12:46)
[2018-08-03] MEDS ORDERED: Morphine Sulfate Inj 2 MG/ML Vial IV.PUSH PRN (16:15)
[2018-08-03 16:53] LABS: Bilirubin,Urine Negative (Negative); Clarity,Urine Clear (Clear); Color,Urine Yellow (Yellw/Straw); Glucose,Urine (UA) Negative (Negative); Leukocyte Esterase,Urine Negative (Negative); Nitrite,Urine Negative (Negative); Specific Gravity,Urine 1.025 (1.002-1.035); Urobilinogen,Urine 0.2 mg/dL (Less than 2)
[2018-08-03 16:58] LABS: Amorphous Sediment,Urine Occasional /hpf; RBC,Urine 0-3 /hpf (0-3); Squamous Epithelial Cell,Urine 0-5 /hpf (0-5)
[2018-08-03] MEDS ORDERED: Albumin Human 25% Inj 100 ML IV.SIG ONE (20:26)
--- NOTE | 2018-08-03 20:37 | P.PNNP ---
Subjective Interval history: Patient complaining of back pain Physical Exam Vital signs: Vital Signs 08/03/18 00:00 08/03/18 04:00 08/03/18 08:00 Temperature 98.7 F 97.4 F L 98.5 F Pulse Rate 78 82 79 Respiratory Rate 18 18 20 Blood Pressure 185/79 H 172/77 H 165/79 H Pulse Oximetry 92 L 92 L 93 L 08/03/18 12:00 08/03/18 15:51 08/03/18 16:00 Temperature 96 F L 96.1 F L Pulse Rate 73 82 Respiratory Rate 20 20 Blood Pressure 138/65 141/65 H Pulse Oximetry 94 L 93 L Intake & Output 08/03/18 08/03/18 08/04/18 06:59 18:59 05:59 Intake Total 820 / 820 1720 / 1720 Output Total 150 / 150 Balance 820 / 820 1570 / 1570 Weight 82 kg Intake: IV 700 / 700 400 / 400 1/2 Normal Saline Inj 1,000 ML 600 / 600 350 / 350 @ 75 mls/hr IV.CONT .[id number] [facility] Rx#:[id number] Zosyn 2.25 GM Premix 50 ML @ 100 / 100 50 / 50 100 mls/hr IV.SIG Q6H [facility] Rx#: [id number] Oral 120 / 120 1320 / 1320 Output: Urine 150 / 150 Other: # Voids 4 2 # Bowel Movements 1 3 Narrative: GENERAL: WN, WD elderly male resting in bed SKIN: Warm and dry without rash or jaundice. Skin tear right forearm HEART: RRR no m/r/g. LUNGS: CTAB without wheezes or crackles. ABDOMEN: +BS, softer, sl distended , slight tenderness left mid EXTREMITIES: No LE edema. 2+ pedal pulses. NEURO: Awake and alert. No abnormal motor activity. UE and LE strength 5/5. No pronator drift. CN II-XII intact. Assessment and Plan - Assessment (1) Acute worsening of stage 3 chronic kidney disease Code(s): N18.3 - Chronic kidney disease, stage 3 (moderate) Status: Acute Plan: Renal function has worsened since admission. It could be due to left ureteral obstruction due to stone, and hydronephrosis. It is possible that he has passed the stone. Renal US from today does not reveal hydronephrosis. Continue IVF. Avoid nephrotoxic agents. Monitor urine output and renal function No immediate need for dialysis. Give albumin. Patient acute renal failure has not improved continue to hydrate Follow BMP Creatinine slightly worse History of kidney stone disease (2) Calculus, ureteral Code(s): N20.1 - Calculus of ureter Status: Acute Plan: 3 mm stone in the left ureter. May have passed it? (3) Leukocytosis Code(s): D72.829 - Elevated white blood cell count, unspecified Status: Acute Qualifiers: Leukocytosis type: unspecified Qualified Code(s): D72.829 - Elevated white blood cell count, unspecified Plan: UTI? On Zosyn.
[2018-08-03] MEDS: Morphine Sulfate Inj 2 MG/ML Vial IV.PUSH PRN (20:53)
[2018-08-04] MEDS: Morphine Sulfate Inj 2 MG/ML Vial IV.PUSH PRN ×4 (01:03→18:34)
[2018-08-04] MEDS: Heparin - SQ 10,000 UNITS/ML Vial SQ SCH ×2 (01:55→12:36)
[2018-08-04] MEDS: Erythromycin Ethylsuccinate Susp 400 MG/5ML 100 ML Bottle PO SCH ×3 (06:31→21:09)
[2018-08-04] MEDS: Insulin NovoLOG Aspart Correctional Sugar Inj SQ SCH ×4 (07:13→20:18)
[2018-08-04 07:42] LABS: Baso # (Auto) 0.2 th/mm3 (0.0-0.2); Baso % (Auto) 0.8 % (0.0-2.0); Eos # (Auto) 0.8 th/mm3 (0.0-0.4); Eos % (Auto) 3.2 % (0.0-4.0); Hematocrit 39.6 % (39.0-51.0); Hemoglobin 13.4 gm/dL (13.0-17.0); Lymph # (Auto) 1.2 th/mm3 (1.0-4.8); Lymph % (Auto) 5.2 % (9.0-44.0); Mean Corpuscular HGB Conc 33.9 % (32.0-36.0); Mean Corpuscular Hemoglobin 32.4 pg (27.0-34.0); Mean Corpuscular Volume 95.5 fL (80.0-100.0); Mean Platelet Volume 8.5 fL (7.0-11.0); Mono # (Auto) 1.3 th/mm3 (0.0-0.9); Mono % (Auto) 5.4 % (0.0-8.0); Neut % (Auto) 85.4 % (16.0-70.0); Platelet Count 433 th/mm3 (150-450); Red Blood Count 4.15 mil/mm3 (4.50-5.90); Red Cell Distribution Width 15.1 % (11.6-17.2); White Blood Count 23.5 th/mm3 (4.0-11.0)
[2018-08-04 07:53] LABS: Calcium 8.1 mg/dL (8.5-10.1); Carbon Dioxide 19.3 meq/L (21.0-32.0); Magnesium 2.1 mg/dL (1.5-2.5)
[2018-08-04] MEDS: Lactobacillus Acidophilus/L. Spores Tablet PO SCH ×3 (08:13→17:06)
[2018-08-04] MEDS: Propranolol 10 MG Tablet PO SCH ×2 (08:13→20:15)
[2018-08-04] MEDS: hydrALAZINE 50 MG Tablet PO SCH ×3 (08:14→17:07)
[2018-08-04] MEDS: Phenytoin Sodium 100 MG Capsule PO SCH ×2 (08:14→20:15)
[2018-08-04] MEDS: amLODIPine 10 MG Tablet PO SCH (08:14)
[2018-08-04] MEDS: Phenytoin 50 MG Chewable Tablet PO SCH ×2 (08:16→20:15)
[2018-08-04] MEDS: Insulin Detemir Inj 1,000 UNIT/10 ML Vial SQ SCH (08:17)
[2018-08-04] MEDS: Budesonide-Formoterol 160/4.5 MCG 6 GM Inhaler INH SCH ×2 (08:19→20:16)
--- NOTE | 2018-08-04 09:12 | P.PN ---
Subjective Interval history: Follow-up flank pain. Denies flank pain this morning but has left lower quadrant pain. No nausea and diarrhea. No UTI symptoms. Persistent leukocytosis no fever, cough and shortness of breath. Physical Exam Vital signs: Vital Signs 08/03/18 12:00 08/03/18 15:51 08/03/18 16:00 Temperature 96 F L 96.1 F L Pulse Rate 73 82 Respiratory Rate 20 20 Blood Pressure 138/65 141/65 H Pulse Oximetry 94 L 93 L 08/03/18 20:00 08/03/18 23:58 08/04/18 00:00 Temperature 97.2 F L 98.4 F Pulse Rate 75 84 70 Respiratory Rate 18 18 Blood Pressure 162/75 H 164/72 H Pulse Oximetry 91 L 91 L 08/04/18 04:00 08/04/18 08:00 Temperature 97.4 F L 98 F Pulse Rate 80 83 Respiratory Rate 18 20 Blood Pressure 167/74 H 181/85 H Pulse Oximetry 91 L 94 L Intake & Output 08/03/18 08/04/18 08/04/18 19:59 06:59 18:59 Intake Total Output Total Balance Weight Intake: IV 1/2 Normal Saline Inj 1,000 ML @ 75 mls/hr IV.CONT .[id number] [facility] Rx#:[id number] Flexbumin 25% Inj 100 ML @ 60 mls/hr IV.SIG ONCE ONE Rx#: [id number] Zosyn 2.25 GM Premix 50 ML @ 100 mls/hr IV.SIG Q6H [facility] Rx#: [id number] Oral Other Output: Urine Other: Other Intake Source # Voids # Bowel Movements Narrative: GENERAL: WN, WD elderly male resting in bed SKIN: Warm and dry without rash or jaundice. Skin tear right forearm HEART: RRR no m/r/g. LUNGS: CTAB without wheezes or crackles. ABDOMEN: +BS, softer, sl distended , slight tenderness left lower quadrant. No CVA tenderness EXTREMITIES: No LE edema. 2+ pedal pulses. NEURO: Awake and alert. No abnormal motor activity. UE and LE strength 5/5. No pronator drift. CN II-XII intact. Results - Labs CBC & Chem 7: 08/04/18 07:31 08/04/18 07:31 Laboratory Results - last 24 hr 08/03/18 08/03/18 08/03/18 11:40 16:20 17:02 CBC w Diff WBC RBC Hgb Hct MCV MCH MCHC RDW Plt Count MPV Neut % (Auto) Lymph % (Auto) [place] % (Auto) Eos % (Auto) Baso % (Auto) Neut # (Auto) Lymph # (Auto) [place] # (Auto) Eos # (Auto) Baso # (Auto) WBC Differential Diff Scan Differential Comment Sodium Potassium Chloride Carbon Dioxide Anion Gap BUN Creatinine Estimated GFR POC Glucose 281 H 153 H Random Glucose Calcium Magnesium Ur Collection Type Clean catch Urine Color Yellow Urine Clarity Clear Urine pH 5.0 Ur Specific [place] 1.025 Urine Protein 30 H Urine Glucose (UA) Negative Urine Ketones Negative Urine Occult Blood Negative Urine Nitrate Negative Urine Bilirubin Negative Urine Urobilinogen 0.2 Ur Leukocyte Esterase Negative Urine RBC 0-3 Ur Squamous Epith Cells 0-5 Amorphous Sediment Occasional H Micro UA Comment Culture not ind Ur Microscopic Review Microscopic reviewed Urine Culture Comments Culture not ind 08/03/18 08/04/18 08/04/18 20:50 07:11 07:31 CBC w Diff Slide review pending WBC 23.5 H RBC 4.15 L Hgb 13.4 Hct 39.6 MCV 95.5 MCH 32.4 MCHC 33.9 RDW 15.1 Plt Count 433 MPV 8.5 Neut % (Auto) 85.4 H Lymph % (Auto) 5.2 L [place] % (Auto) 5.4 Eos % (Auto) 3.2 Baso % (Auto) 0.8 Neut # (Auto) 20.0 H Lymph # (Auto) 1.2 [place] # (Auto) 1.3 H Eos # (Auto) 0.8 H Baso # (Auto) 0.2 WBC Differential . Diff Scan Auto diff confirmed Differential Comment . Sodium Potassium Chloride Carbon Dioxide Anion Gap BUN Creatinine Estimated GFR POC Glucose 180 H 122 H Random Glucose Calcium Magnesium Ur Collection Type Urine Color Urine Clarity Urine pH Ur Specific [place] Urine Protein Urine Glucose (UA) Urine Ketones Urine Occult Blood Urine Nitrate Urine Bilirubin Urine Urobilinogen Ur Leukocyte Esterase Urine RBC Ur Squamous Epith Cells Amorphous Sediment Micro UA Comment Ur Microscopic Review Urine Culture Comments 08/04/18 07:31 CBC w Diff WBC RBC Hgb Hct MCV MCH MCHC RDW Plt Count MPV Neut % (Auto) Lymph % (Auto) [place] % (Auto) Eos % (Auto) Baso % (Auto) Neut # (Auto) Lymph # (Auto) [place] # (Auto) Eos # (Auto) Baso # (Auto) WBC Differential Diff Scan Differential Comment Sodium 138 Potassium 4.0 Chloride 105 Carbon Dioxide 19.3 L Anion Gap 14 BUN 62 H Creatinine 4.70 H Estimated GFR 12 L POC Glucose Random Glucose 151 H Calcium 8.1 L Magnesium 2.1 Ur Collection Type Urine Color Urine Clarity Urine pH Ur Specific [place] Urine Protein Urine Glucose (UA) Urine Ketones Urine Occult Blood Urine Nitrate Urine Bilirubin Urine Urobilinogen Ur Leukocyte Esterase Urine RBC Ur Squamous Epith Cells Amorphous Sediment Micro UA Comment Ur Microscopic Review Urine Culture Comments - Procedures None Assessment and Plan - Assessment (1) Calculus, ureteral Code(s): N20.1 - Calculus of ureter Status: Acute (2) Obstructive uropathy Code(s): N13.9 - Obstructive and reflux uropathy, unspecified Status: Acute (3) Urinary tract infection Code(s): N39.0 - Urinary tract infection, site not specified Status: Acute - Plan 88-year-old male with history of IDDM, HTN, HLD, prostate cancer, and CKD presented on 07/29 with abdominal pain. U/A with evidence of infection and CT A/P showed left ureteral stone with mild obstructive uropathy. 1. Leukocytosis. Persistent with no clear etiology could be reactive/ obstructive uropathy/ileus - Urine culture with contaminants - C. difficile negative. - Follow-up ESR and blood cultures. Repeat CT of the abdomen and pelvis with new flank and abdominal pain. Consult infectious disease 2. Urolithiasis with mild obstructive uropathy - CT A/P with 3 mm left ureteral stent with associated mild obstructive uropathy and 4 mm nonobstructing stone left lower pole - IV fluids if no evidence of fluid overload - Pain control - Antiemetics - Flomax - Given some degree of obstruction and associated UTI consulted urology recommended medical mgt as pt hi risk and expected to pass stone. - Repeat ultrasound showed no hydronephrosis or stone 3. Involuntary mouth movements, dystonia, jaw tremors. Resolved - Per neuro likely secondary to Dilaudid - D/C Dilaudid, change Rocephin to Zosyn - Status post swallowing eval - Neuro consulted - Stat CT head negative - MRI no lesion - Abnormal EEG vs artifact, ct dilantin per neuro. corrected Dilantin level 13. No driving 4. IDDM. A1c 7.5 hyperglycemic improved after restarting long-acting insulin - SSI per protocol 5. HTN -Hypertensive secondary to pain - Resume home amlodipine - Holding home ARB and thiazide in light of possible ALY - Adjusted hydralazine - Clonidine PRN - Continue to monitor and adjust meds as needed 6. Acute on CKD stage 3 with hyperkalemia. Worsening renal function likely from obstructive uropathy, ileus and diarrhea. Creatinine down to 4.7 slightly improved status post IV albumin -Continue IV fluids - Avoid nephrotoxic agents - Monitor renal function. Discussed with renal - Status post Kayexalate 7. HLD - Resume home statin 8. Ileus. Lactic acid within normal limits. Resolved continue E.E.S. discontinue Reglan and bowel regimen secondary to diarrhea. 9. Reported shortness of breath which patient denied. BNP within normal limits. Chest x-ray suggest fluid overload. Clinically not in failure. We will continue to monitor especially on IV hydration DVT prophylaxis: heparin Fall precautions. PT recommends possible home health care with walker (3) Urinary tract infection Qualifiers: Urinary tract infection type: site unspecified Hematuria presence: with hematuria Qualified Code(s): N39.0 - Urinary tract infection, site not specified; R31.9 - Hematuria, unspecified
[2018-08-04] MEDS ORDERED: Diatrizoate Meglum/Diatrizoate Sod Liq 9 ML UDC PO ONE (10:14)
[2018-08-04] MEDS: Sodium Chloride 0.45 % Inj 1,000 ML IV.CONT SCH (12:58)
--- NOTE | 2018-08-04 13:35 | P.PNNP ---
Subjective Interval history: Complaint of back pain Physical Exam Vital signs: Vital Signs 08/03/18 15:51 08/03/18 16:00 08/03/18 20:00 Temperature 96.1 F L 97.2 F L Pulse Rate 82 75 Respiratory Rate 20 18 Blood Pressure 141/65 H 162/75 H Pulse Oximetry 93 L 91 L 08/03/18 23:58 08/04/18 00:00 08/04/18 04:00 Temperature 98.4 F 97.4 F L Pulse Rate 84 70 80 Respiratory Rate 18 18 Blood Pressure 164/72 H 167/74 H Pulse Oximetry 91 L 91 L 08/04/18 08:00 08/04/18 08:42 08/04/18 09:50 Temperature 98 F Pulse Rate 83 68 Respiratory Rate 20 17 Blood Pressure 181/85 H 125/60 Pulse Oximetry 94 L 08/04/18 11:42 08/04/18 12:00 Temperature 97.6 F Pulse Rate 70 Respiratory Rate 18 20 Blood Pressure 145/65 H Pulse Oximetry 93 L Intake & Output 08/03/18 08/04/18 08/04/18 19:59 06:59 18:59 Intake Total 1000 / 1000 Output Total Balance 1000 / 1000 Weight Intake: IV 1000 / 1000 1/2 Normal Saline Inj 1,000 ML 1000 / 1000 @ 75 mls/hr IV.CONT .[id number] [facility] Rx#:[id number] Flexbumin 25% Inj 100 ML @ 60 mls/hr IV.SIG ONCE ONE Rx#: [id number] Zosyn 2.25 GM Premix 50 ML @ 100 mls/hr IV.SIG Q6H [facility] Rx#: [id number] Oral Other Output: Urine Other: Other Intake Source # Voids # Bowel Movements Narrative: GENERAL: WN, WD elderly male resting in bed SKIN: Warm and dry without rash or jaundice. Skin tear right forearm HEART: RRR no m/r/g. LUNGS: CTAB without wheezes or crackles. ABDOMEN: +BS, softer, sl distended , slight tenderness left lower quadrant. No CVA tenderness EXTREMITIES: No LE edema. 2+ pedal pulses. NEURO: Awake and alert. No abnormal motor activity. UE and LE strength 5/5. No pronator drift. CN II-XII intact. Assessment and Plan - Assessment (1) Acute worsening of stage 3 chronic kidney disease Code(s): N18.3 - Chronic kidney disease, stage 3 (moderate) Status: Acute Plan: Renal function has worsened since admission. It could be due to left ureteral obstruction due to stone, and hydronephrosis. It is possible that he has passed the stone. Renal US from today does not reveal hydronephrosis. Continue IVF. Avoid nephrotoxic agents. Monitor urine output and renal function No immediate need for dialysis. Give albumin. Patient acute renal failure has improved continue to hydrate Follow BMP Creatinine 4.7 improved History of kidney stone disease Dr. Hoffman to follow (2) Calculus, ureteral Code(s): N20.1 - Calculus of ureter Status: Acute Plan: 3 mm stone in the left ureter. May have passed it? (3) Leukocytosis Code(s): D72.829 - Elevated white blood cell count, unspecified Status: Acute Qualifiers: Leukocytosis type: unspecified Qualified Code(s): D72.829 - Elevated white blood cell count, unspecified Plan: UTI? On Zosyn.
--- NOTE | 2018-08-04 14:09 | CT ---
EXAM DATE: 08/04/2018 1:57 PM EST AGE/SEX: 88 years / Male INDICATIONS: Left lower quadrant pain. CLINICAL DATA: This is the patient's subsequent encounter. Patient reports that signs and symptoms h ave been present for 4 - 6 days and indicates a pain score of 3/10. MEDICAL/SURGICAL HISTORY: Diabetes. Hypertension. Carcinoma, prostatic. Chronic kidney disea se. None. RADIATION DOSE: 20.35 CTDI (mGy) COMPARISON: [facility], CT ABDOMEN & PELVIS W/O CONTRAST, 07/30/2018. . TECHNIQUE: Multiple contiguous axial images were obtained through the abdomen. Images were obtained using multiple row detector helical technique. Using automated exposure control and adjustment of the mA and/or kV according to patient size, radiation dose was kept as low as reasonably achievable to o btain optimal diagnostic quality images. DICOM format image data is available electronically for rev iew and comparison. FINDINGS: Lower Lungs: Small bilateral effusions and subpleural airspace disease is identified in both lung bas es. Heart is mildly enlarged. Liver: The liver has a homogeneous density without space-occupying lesion. There is no dilation of th e biliary tree. Spleen: Homogeneous density without enlargement. Pancreas: Unremarkable without mass or calcification. Kidneys: A left renal collecting system is mildly distended. There is significant stranding in the p eripelvic region and renal hilum. The left ureter is mildly distended. A 3 mm calculus is identified in the distal left ureter just above the ureterovesical junction. The right kidney and collecting system are unremarkable. Adrenal Glands: Unremarkable. Aorta: The aorta and proximal iliac vessels are grossly unremarkable without aneurysmal dilation. Bowel/Mesentery: The bowel loops are grossly unremarkable. The cecum and sigmoid colon have a normal configuration. Abdominal Wall: Intact. Retroperitoneum: No evidence of adenopathy in the retrocrural, para-aortic, or deep pelvic regions. Bladder: Contours are smooth. Reproductive Organs: Numerous radioactive seeds are identified throughout the prostate gland. Inguinal: The inguinal region is unremarkable without evidence of adenopathy. Bony Structures: Unremarkable. CONCLUSION: 1. 3 mm obstructing calculus in the distal left ureter 2. Significant peripelvic stranding surrounding the left renal collecting system which may represent disruption of the collecting system or an inflammatory process area. 3. Small bilateral pleural effusions and basilar airspace disease 4. Radioactive seeds throughout the prostate gland Electronically signed by: Zack Baxter MD 08/04/2018 2:08 PM EST
[2018-08-05] MEDS: Heparin - SQ 10,000 UNITS/ML Vial SQ SCH ×2 (00:25→12:06)
[2018-08-05] MEDS: Sodium Chloride 0.45 % Inj 1,000 ML IV.CONT SCH ×2 (02:45→17:28)
[2018-08-05] MEDS: Erythromycin Ethylsuccinate Susp 400 MG/5ML 100 ML Bottle PO SCH (05:20)
[2018-08-05 05:57] LABS: Potassium 3.7 meq/L (3.5-5.1)
[2018-08-05 06:00] LABS: Calcium 7.5 mg/dL (8.5-10.1); Carbon Dioxide 19.4 meq/L (21.0-32.0)
[2018-08-05 06:20] LABS: Baso # (Auto) 0.1 th/mm3 (0.0-0.2); Baso % (Auto) 0.3 % (0.0-2.0); Eos % (Auto) 4.7 % (0.0-4.0); Hematocrit 36.4 % (39.0-51.0); Hemoglobin 12.1 gm/dL (13.0-17.0); Lymph # (Auto) 1.5 th/mm3 (1.0-4.8); Lymph % (Auto) 6.9 % (9.0-44.0); Mean Corpuscular HGB Conc 33.3 % (32.0-36.0); Mean Corpuscular Hemoglobin 32.6 pg (27.0-34.0); Mean Corpuscular Volume 97.8 fL (80.0-100.0); Mean Platelet Volume 8.6 fL (7.0-11.0); Mono # (Auto) 1.4 th/mm3 (0.0-0.9); Mono % (Auto) 6.8 % (0.0-8.0); Neut % (Auto) 81.3 % (16.0-70.0); Platelet Count 378 th/mm3 (150-450); Red Blood Count 3.72 mil/mm3 (4.50-5.90)
[2018-08-05 07:06] LABS: RBC Morphology Normal (Normal)
[2018-08-05 07:07] LABS: Platelet Estimate Normal (Normal); Platelet Morphology Normal (Normal)
[2018-08-05] MEDS: Insulin NovoLOG Aspart Correctional Sugar Inj SQ SCH ×4 (08:45→21:34)
[2018-08-05] MEDS: hydrALAZINE 50 MG Tablet PO SCH ×3 (09:18→17:31)
[2018-08-05] MEDS: Lactobacillus Acidophilus/L. Spores Tablet PO SCH ×3 (09:19→17:31)
[2018-08-05] MEDS: amLODIPine 10 MG Tablet PO SCH (09:19)
[2018-08-05] MEDS: Phenytoin Sodium 100 MG Capsule PO SCH ×2 (09:19→21:34)
[2018-08-05] MEDS: Propranolol 10 MG Tablet PO SCH ×2 (09:19→21:34)
[2018-08-05] MEDS: Phenytoin 50 MG Chewable Tablet PO SCH ×2 (09:19→21:34)
[2018-08-05] MEDS: Insulin Detemir Inj 1,000 UNIT/10 ML Vial SQ SCH (09:19)
[2018-08-05] MEDS: Budesonide-Formoterol 160/4.5 MCG 6 GM Inhaler INH SCH ×2 (09:20→21:35)
--- NOTE | 2018-08-05 11:20 | P.PN ---
Subjective Interval history: Follow-up obstructive uropathy, ileus, leukocytosis, acute kidney injury and hypertension. Today's he is feeling slightly better with improved abdominal pain. Denies back pain. Still having loose stool but no UTI symptoms. Discussed with infectious disease Physical Exam Vital signs: Vital Signs 08/04/18 11:42 08/04/18 12:00 08/04/18 16:00 Temperature 97.6 F 98.1 F Pulse Rate 69 72 Respiratory Rate 18 20 20 Blood Pressure 145/65 H 167/76 H Pulse Oximetry 93 L 94 L 08/04/18 16:07 08/04/18 18:36 08/04/18 20:00 Temperature 98.6 F Pulse Rate 63 Respiratory Rate 18 18 18 Blood Pressure 168/73 H Pulse Oximetry 94 L 08/05/18 00:00 08/05/18 04:00 08/05/18 08:00 Temperature 98.8 F 97.5 F L 98.7 F Pulse Rate 70 71 82 Respiratory Rate 18 18 22 Blood Pressure 157/71 H 144/67 H 196/91 H Pulse Oximetry 97 95 91 L Intake & Output 08/04/18 08/05/18 08/05/18 18:59 06:59 18:59 Intake Total 2467 / 2467 603 / 603 Output Total 150 / 150 300 / 300 Balance 2317 / 2317 303 / 303 Weight 85.4 kg Intake: IV 1397 / 1397 603 / 603 1/2 Normal Saline Inj 1,000 ML 1397 / 1397 603 / 603 @ 75 mls/hr IV.CONT .[id number] [facility] Rx#:[id number] Oral 1070 / 1070 0 / 0 Output: Urine 150 / 150 300 / 300 Other: # Voids 2 1 Date of Last Bowel Movement 08/03/18 08/05/18 # Bowel Movements 4 1 Narrative: GENERAL: WN, WD elderly male resting in bed SKIN: Warm and dry without rash or jaundice. Skin tear right forearm HEART: RRR no m/r/g. LUNGS: CTAB without wheezes or crackles. ABDOMEN: +BS, softer, sl distended , no tenderness left lower quadrant. No CVA tenderness EXTREMITIES: No LE edema. 2+ pedal pulses. NEURO: Awake and alert. No abnormal motor activity. UE and LE strength 5/5. No pronator drift. CN II-XII intact. Results - Labs CBC & Chem 7: 08/05/18 05:35 08/05/18 05:35 Laboratory Results - last 24 hr 08/04/18 08/04/18 08/04/18 14:46 16:18 20:18 CBC w Diff WBC RBC Hgb Hct MCV MCH MCHC RDW Plt Count MPV Neut % (Auto) Lymph % (Auto) [place] % (Auto) Eos % (Auto) Baso % (Auto) Neut # (Auto) Lymph # (Auto) [place] # (Auto) Eos # (Auto) Baso # (Auto) WBC Differential Diff Scan Differential Comment Platelet Estimate Platelet Morphology RBC Morphology ESR 57 H Sodium Potassium Chloride Carbon Dioxide Anion Gap BUN Creatinine Estimated GFR POC Glucose 162 H 164 H Random Glucose Calcium Magnesium 08/05/18 08/05/18 08/05/18 05:35 05:35 07:27 CBC w Diff Slide review pending WBC 21.0 H RBC 3.72 L Hgb 12.1 L Hct 36.4 L MCV 97.8 MCH 32.6 MCHC 33.3 RDW 15.0 Plt Count 378 MPV 8.6 Neut % (Auto) 81.3 H Lymph % (Auto) 6.9 L [place] % (Auto) 6.8 Eos % (Auto) 4.7 H Baso % (Auto) 0.3 Neut # (Auto) 17.0 H Lymph # (Auto) 1.5 [place] # (Auto) 1.4 H Eos # (Auto) 1.0 H Baso # (Auto) 0.1 WBC Differential . Diff Scan Auto diff confirmed Differential Comment . Platelet Estimate Normal Platelet Morphology Normal RBC Morphology Normal ESR Sodium 138 Potassium 3.7 Chloride 106 Carbon Dioxide 19.4 L Anion Gap 13 BUN 63 H Creatinine 4.60 H Estimated GFR 12 L POC Glucose 122 H Random Glucose 127 H Calcium 7.5 L Magnesium 2.0 Microbiology 08/03/18 10:20 Blood - Peripheral Aerobic Blood Culture - Preliminary No growth in 2 days 08/03/18 10:20 Blood - Peripheral Anaerobic Blood Culture - Preliminary No growth in 2 days 08/03/18 10:20 Blood - Peripheral Aerobic Blood Culture - Preliminary No growth in 2 days 08/03/18 10:20 Blood - Peripheral Anaerobic Blood Culture - Preliminary No growth in 2 days - Imaging Impressions Abdomen/Pelvis CT 08/04/18 00:00 CONCLUSION: 1. 3 mm obstructing calculus in the distal left ureter 2. Significant peripelvic stranding surrounding the left renal collecting system which may represent disruption of the collecting system or an inflammatory process area. 3. Small bilateral pleural effusions and basilar airspace disease 4. Radioactive seeds throughout the prostate gland - Procedures None Assessment and Plan - Assessment (1) Calculus, ureteral Code(s): N20.1 - Calculus of ureter Status: Acute (2) Obstructive uropathy Code(s): N13.9 - Obstructive and reflux uropathy, unspecified Status: Acute (3) Urinary tract infection Code(s): N39.0 - Urinary tract infection, site not specified Status: Acute - Plan 88-year-old male with history of IDDM, HTN, HLD, prostate cancer, and CKD presented on 07/29 with abdominal pain. U/A with evidence of infection and CT A/P showed left ureteral stone with mild obstructive uropathy. 1. Leukocytosis. Persistent with no clear etiology could be reactive/ obstructive uropathy/ileus. Improving - Urine culture with contaminants - C. difficile negative. - ESR 57 and follow-up blood cultures negative today. Repeat CT of the abdomen and pelvis with new flank and abdominal pain showed 3 mm obstructing calculus in the distal left ureter and significant peripelvic stranding surrounding the left renal collecting system which may represent disruption of the collecting system or an inflammatory process area. I think he is passing the 2nd stone at this time which was in the lower pole on the first CT. Also has small bilateral pleural effusions and basilar airspace disease likely secondary to fluid overload. Patient denies respiratory symptoms at this time. Consulted infectious disease 2. Urolithiasis with mild obstructive uropathy - Initial CT A/P with 3 mm left ureteral stent with associated mild obstructive uropathy and 4 mm nonobstructing stone left lower pole - IV fluids if no evidence of fluid overload - Pain control - Antiemetics - Flomax - Given some degree of obstruction and associated UTI consulted urology recommended medical mgt as pt hi risk and expected to pass stone. - Subsequent ultrasound showed no hydronephrosis or stone (performed before the second abdominal CT) to 3. Involuntary mouth movements, dystonia, jaw tremors. Resolved - Per neuro likely secondary to Dilaudid - D/C Dilaudid, change Rocephin to Zosyn - Status post swallowing eval - Neuro consulted - Stat CT head negative - MRI no lesion - Abnormal EEG vs artifact, ct dilantin per neuro. corrected Dilantin level 13. No driving 4. IDDM. A1c 7.5 hyperglycemic improved after restarting long-acting insulin - SSI per protocol 5. HTN - Hypertensive secondary to pain - Resume home amlodipine - Holding home ARB and thiazide in light of possible ALY - Adjusted hydralazine - Clonidine PRN - Continue to monitor and adjust meds as needed 6. Acute on CKD stage 3 with hyperkalemia. Worsening renal function likely from obstructive uropathy, ileus and diarrhea. Creatinine down to 4.6 slightly improved status post IV albumin - Continue IV fluids - Avoid nephrotoxic agents - Monitor renal function. Discussed with renal - Status post Kayexalate 7. HLD - Resume home statin 8. Ileus. Lactic acid within normal limits. Resolved discontinue E.E.S. 2/2 loose stools off Reglan and bowel regimen. Patient on Lactinex 9. Reported shortness of breath which patient denied. BNP within normal limits. Chest x-ray suggest fluid overload. Clinically not in failure. We will continue to monitor especially on IV hydration DVT prophylaxis: heparin Fall precautions. PT recommends possible home health care with walker Discharge Planning: Discharge when clinically improved (3) Urinary tract infection Qualifiers: Urinary tract infection type: site unspecified Hematuria presence: with hematuria Qualified Code(s): N39.0 - Urinary tract infection, site not specified; R31.9 - Hematuria, unspecified
--- NOTE | 2018-08-05 11:45 | P.PNADD ---
Addendum to Inpatient Note Additional information: Pt seen today around 1115 full note to follow kaitlin Segura
--- NOTE | 2018-08-05 14:40 | P.CONID ---
History of Present Illness Service: ID Consult date: 08/05/18 Requesting Physician: Ángel Segura Reason for Consult: leukocytosis Primary Care Provider: [facility] Chief Complaint: Speech change, tremors History of Present Illness: 88 yo male no prior h/o nephrolithiasis presented with severe L abdomina/flank pain CT showed L ureteral stone with obstructive uropathy, mild and another non obstructing stone pt cont to have severe L side pain and leukocytosis which ac Repeat CT showed obstruction with mild hydro today no pain cont to have diarrhea with 4 liquid /watery stools WBC improved down to 21K On admission pt had abnormal UA with promintnt pyuria clx noted: mixed audi HIs CT from yday showed Significant peripelvic stranding surrounding the left renal collecting system which may represent disruption of the collecting system or an inflammatory process area. Repeat UA from 08/03 was negative Pt was on abx from admission to 08/03 including CFTX, zosyn Abx were stopped 2 days ago Worsening GFR Review of Systems All other systems reviewed negative except as stated in HPI PMFSH - History History Provided By: Patient - Medical History Medical History: Medical History (Last Updated 08/05/18 @ 15:57 by Anuradha Allen MD) CKD (chronic kidney disease) Diabetes Hyperlipidemia Hypertension Parotid neoplasm Prostate cancer - Surgical History Surgical History: Surgical History (Last Updated 08/05/18 @ 15:57 by Anuradha Allen MD) History of parotidectomy - Family History Family History: Family History (Last Reviewed 08/05/18 @ 15:33 by Anuradha Allen MD) Sister Diabetes - Social History I have reviewed the patient's Social History: Yes - Tobacco History Second Hand Smoke Exposure: No Tobacco Use In Past 30 Days: No Smoking Status: Never smoker Tobacco Type: Cigarettes - Alcohol History How Often Do You Have a Drink Containing Alcohol: Never - Substance Use History Substance History: No History of Abuse - Travel History Recent Travel in the [place] Within the Last 8 Weeks: No Recent Travel Out of the Country Within the Last 8 Weeks: No - Immunization History Tetanus Immunization: Unsure Medications and Allergies Active Medications: Active Medications Acetaminophen (Tylenol) 650 mg PO Q4H PRN PRN Reason: Temp > 100.4 Amlodipine Besylate (Norvasc) 10 mg PO DAILY ELAN Last Admin: 08/05/18 09:19 Dose: 10 mg Aspirin (Ecotrin) 81 mg PO DAILY [facility] Last Admin: 08/05/18 09:19 Dose: 81 mg Bisacodyl (Dulcolax Supp) 10 mg RECTAL DAILY PRN PRN Reason: SEVERE CONSITIPATION Budesonide/Formoterol Fumarate (Symbicort 160/4.5 Mcg Inh) 2 puff INH BID [facility] Last Admin: 08/05/18 09:20 Dose: 2 puff Clonidine HCl (Catapres) 0.1 mg PO Q6H PRN PRN Reason: SBP>180, DBP>100, HR>65 Last Admin: 08/04/18 08:35 Dose: 0.1 mg Dextrose (D50w Vial) 50 ml IV.PUSH UNSCH PRN PRN Reason: PER HYPOGLYCEMIA PROTOCOL Glucagon (Glucagon Inj) 1 mg OTHER PRN PRN PRN Reason: for Hypoglycemia Protocol Heparin Sodium (Porcine) (Heparin Inj) 5,000 units SQ Q12H [facility] Last Admin: 08/05/18 12:06 Dose: 5,000 units Hydralazine HCl (Apresoline) 100 mg PO TID [facility] Last Admin: 08/05/18 12:05 Dose: 100 mg Sodium Chloride (1/2 Normal Saline Inj) 1,000 mls @ 75 mls/hr IV.CONT .[id number] [facility] Last Admin: 08/05/18 02:45 Dose: 75 mls/hr Insulin Aspart (Novolog Insulin Correctional Sugar Inj) 0 unit SQ ACHS [facility]; Protocol Last Admin: 08/05/18 12:05 Dose: 3 unit Insulin Detemir (Levemir Inj) 10 unit SQ DAILY [facility] Last Admin: 08/05/18 09:19 Dose: 10 unit Lactobacillus Acidophilus (Lactinex) 1 tab PO TID [facility] Last Admin: 08/05/18 12:05 Dose: 1 tab Lactulose (Lactulose Liq) 30 ml PO DAILY PRN PRN Reason: SEVERE CONSITIPATION Morphine Sulfate (Morphine Inj) 1 mg IV.PUSH Q4H PRN PRN Reason: BREAKTHROUGH PAIN Last Admin: 08/04/18 18:34 Dose: 1 mg Naloxone HCl (Narcan Inj) 0.4 mg IV.PUSH UNSCH PRN PRN Reason: SEE LABEL COMMENTS Ondansetron HCl (Zofran Inj) 4 mg IV.PUSH Q6H PRN PRN Reason: NAUSEA OR VOMITING Last Admin: 08/03/18 17:03 Dose: 4 mg Phenytoin (Dilantin Infatabs Chewable) 50 mg PO BID [facility] Last Admin: 08/05/18 09:19 Dose: 50 mg Phenytoin Sodium (Dilantin) 100 mg PO BID [facility] Last Admin: 08/05/18 09:19 Dose: 100 mg Pravastatin Sodium (Pravachol) 10 mg PO DAILY [facility] Last Admin: 08/05/18 09:20 Dose: 10 mg Propranolol HCl (Inderal) 10 mg PO BID [facility] Last Admin: 08/05/18 09:19 Dose: 10 mg Sennosides (Senokot) 17.2 mg PO Q12H PRN PRN Reason: Moderate Constipation Sodium Chloride (Ns Flush) 2 ml IV.FLUSH PRN PRN PRN Reason: FLUSH AFTER USING IV ACCESS Last Admin: 07/31/18 05:09 Dose: 2 ml Tamsulosin HCl (Flomax) 0.4 mg PO DAILY [facility] Last Admin: 08/05/18 09:19 Dose: 0.4 mg Tramadol HCl (Ultram) 50 mg PO Q4H PRN PRN Reason: PAIN SCALE 1 TO 10 Last Admin: 08/04/18 20:15 Dose: 50 mg Allergies Allergy/AdvReac Type Severity Reaction Status Date / Time lisinopril Allergy Severe Shortness Verified 07/30/18 00:15 of Breath simvastatin Allergy Intermediate muscle Verified 07/30/18 00:15 aches Home Medications Medication Instructions Recorded Confirmed Type amlodipine 10 mg PO DAILY 07/29/18 07/29/18 History aspirin [Aspirin Low Dose] 81 mg PO DAILY 07/29/18 07/29/18 History budesonide-formoterol [Symbicort] 2 puff INHALATION BID 07/29/18 07/29/18 History cholecalciferol (vitamin D3) 1,000 unit PO DAILY 07/29/18 07/29/18 History [Vitamin D3] dextran 70-hypromellose 1 drp OPHTHALMIC (EYE) Q12H PRN 07/29/18 07/29/18 History [Artificial Tears (PF)] glipizide 10 mg PO BID 07/29/18 07/29/18 History hydrochlorothiazide 25 mg PO DAILY 07/29/18 07/29/18 History insulin glargine [Lantus U-100 10 unit SUBCUT DAILY 07/29/18 07/29/18 History Insulin] loratadine 10 mg PO DAILY 07/29/18 07/29/18 History lovastatin 10 mg PO DAILY 07/29/18 07/29/18 History multivitamin with minerals 1 tab PO DAILY 07/29/18 07/29/18 History valsartan 160 mg PO DAILY 07/29/18 07/29/18 History Exam Vital signs: Vital Signs 08/04/18 16:00 08/04/18 16:07 08/04/18 18:36 Temperature 98.1 F Pulse Rate 72 Respiratory Rate 20 18 18 Blood Pressure 167/76 H Pulse Oximetry 94 L 08/04/18 20:00 08/05/18 00:00 08/05/18 04:00 Temperature 98.6 F 98.8 F 97.5 F L Pulse Rate 63 70 71 Respiratory Rate 18 18 18 Blood Pressure 168/73 H 157/71 H 144/67 H Pulse Oximetry 94 L 97 95 08/05/18 08:00 08/05/18 11:59 Temperature 98.7 F 97.5 F L Pulse Rate 82 77 Respiratory Rate 22 18 Blood Pressure 196/91 H 192/77 H Pulse Oximetry 91 L 95 Intake & Output 08/04/18 08/05/18 08/05/18 18:59 06:59 18:59 Intake Total 2467 / 2467 603 / 603 Output Total 150 / 150 300 / 300 Balance 2317 / 2317 303 / 303 Weight 85.4 kg Intake: IV 1397 / 1397 603 / 603 1/2 Normal Saline Inj 1,000 ML 1397 / 1397 603 / 603 @ 75 mls/hr IV.CONT .[id number] [facility] Rx#:[id number] Oral 1070 / 1070 0 / 0 Output: Urine 150 / 150 300 / 300 Other: # Voids 2 1 Date of Last Bowel Movement 08/03/18 08/05/18 # Bowel Movements 4 1 - Constitutional no acute distress, obese - Routine HEENT Exam Head: Present: normocephalic, atraumatic Eye: Present: EOMI, PERRL ENT: Present: mucous membranes moist, oropharynx clear - Routine Respiratory Exam Present: CTA bilaterally. Absent: accessory muscle use, respiratory distress - Routine Cardiovascular Exam Present: RRR, S1, S2. Absent: murmur, gallop - Routine Abdominal Exam Present: soft, normoactive bowel sounds. Absent: tenderness, distended, organomegaly, mass - Routine Extremities Exam Absent: cyanosis, clubbing, edema - Routine Skin Exam Present: intact, dry, warm - Routine Neurological Exam Present: alert, oriented X3, CN II-XII intact. Absent: sensory deficit, motor deficit - Routine Psychiatric Exam Present: normal affect, normal thought process, cooperative Results - Labs CBC & Chem 7: 08/05/18 05:35 08/05/18 05:35 Labs: Laboratory Results - last 24 hr 08/04/18 08/04/18 08/04/18 14:46 16:18 20:18 CBC w Diff WBC RBC Hgb Hct MCV MCH MCHC RDW Plt Count MPV Neut % (Auto) Lymph % (Auto) [place] % (Auto) Eos % (Auto) Baso % (Auto) Neut # (Auto) Lymph # (Auto) [place] # (Auto) Eos # (Auto) Baso # (Auto) WBC Differential Diff Scan Differential Comment Platelet Estimate Platelet Morphology RBC Morphology ESR 57 H Sodium Potassium Chloride Carbon Dioxide Anion Gap BUN Creatinine Estimated GFR POC Glucose 162 H 164 H Random Glucose Calcium Magnesium 08/05/18 08/05/18 08/05/18 05:35 05:35 07:27 CBC w Diff Slide review pending WBC 21.0 H RBC 3.72 L Hgb 12.1 L Hct 36.4 L MCV 97.8 MCH 32.6 MCHC 33.3 RDW 15.0 Plt Count 378 MPV 8.6 Neut % (Auto) 81.3 H Lymph % (Auto) 6.9 L [place] % (Auto) 6.8 Eos % (Auto) 4.7 H Baso % (Auto) 0.3 Neut # (Auto) 17.0 H Lymph # (Auto) 1.5 [place] # (Auto) 1.4 H Eos # (Auto) 1.0 H Baso # (Auto) 0.1 WBC Differential . Diff Scan Auto diff confirmed Differential Comment . Platelet Estimate Normal Platelet Morphology Normal RBC Morphology Normal ESR Sodium 138 Potassium 3.7 Chloride 106 Carbon Dioxide 19.4 L Anion Gap 13 BUN 63 H Creatinine 4.60 H Estimated GFR 12 L POC Glucose 122 H Random Glucose 127 H Calcium 7.5 L Magnesium 2.0 08/05/18 11:09 CBC w Diff WBC RBC Hgb Hct MCV MCH MCHC RDW Plt Count MPV Neut % (Auto) Lymph % (Auto) [place] % (Auto) Eos % (Auto) Baso % (Auto) Neut # (Auto) Lymph # (Auto) [place] # (Auto) Eos # (Auto) Baso # (Auto) WBC Differential Diff Scan Differential Comment Platelet Estimate Platelet Morphology RBC Morphology ESR Sodium Potassium Chloride Carbon Dioxide Anion Gap BUN Creatinine Estimated GFR POC Glucose 245 H Random Glucose Calcium Magnesium - Imaging Head MRI 07/30/18 00:00 CONCLUSION: 1. No evidence of an acute stroke, hemorrhage, mass or mass effect. Abdomen/Pelvis CT 07/30/18 00:12 CONCLUSION: 1. 3 mm stone of the mid left ureter causing mild obstructive uropathy, including perinephric and periureteral edema. 2. Nonobstructing stone and benign appearing cyst seen of the left kidney lower pole as well. 3. No organized fluid. No abscess. 4. Cholelithiasis. 5. Aortoiliac atherosclerosis. No aneurysm. Head CT 07/30/18 06:00 CONCLUSION: 1. No acute intracranial abnormality demonstrated. 2. Chronic appearing ethmoid and maxillary sinusitis. . Abdomen X-Ray 07/31/18 00:00 CONCLUSION: Moderate gaseous distention. The only solid stool within the ascending colon. History of prostate cancer. Chest X-Ray 07/31/18 00:00 CONCLUSION: 1. Mild hazy perihilar and bibasilar opacities which could represent early pulmonary edema. 2. No consolidation or effusion. Abdomen/Bladder Ultrasound 08/02/18 00:00 CONCLUSION: 1. Normal renal ultrasound Abdomen/Pelvis CT 08/04/18 00:00 CONCLUSION: 1. 3 mm obstructing calculus in the distal left ureter 2. Significant peripelvic stranding surrounding the left renal collecting system which may represent disruption of the collecting system or an inflammatory process area. 3. Small bilateral pleural effusions and basilar airspace disease 4. Radioactive seeds throughout the prostate gland Assessment and Plan - Plan Nephrolithiasis L ureter obstruciotn, obstructive uropahty, stone moved distally but is nt passed L side pyelonephritis CT findings dw Dr Baxter: more prominent changes on later image Abx associatedn diarrhea, c.diff negative (08/02) Worsening GFR - urine eos neg ? Obstruction /sepsis? UA, C+S restart zosyn rechk c.diff if on going diarrhea fu WC reconsult urology case dw Elio Segura, Vee madrigal pt, spouse @ b/s
[2018-08-05] MEDS ORDERED: Piperacil/Tazo 3.375 GM Premix 50 ML IV.SIG SCH (16:17)
[2018-08-05 16:49] LABS: Bilirubin,Urine Negative (Negative); Clarity,Urine Clear (Clear); Color,Urine Yellow (Yellw/Straw); Glucose,Urine (UA) 100 mg/dL (Negative); Leukocyte Esterase,Urine Negative (Negative); Nitrite,Urine Negative (Negative); PH,Urine 5.5 (5.0-8.5); Specific Gravity,Urine 1.015 (1.002-1.035); Urobilinogen,Urine 0.2 mg/dL (Less than 2)
[2018-08-05 16:57] LABS: RBC,Urine 0-3 /hpf (0-3); Squamous Epithelial Cell,Urine 0-5 /hpf (0-5); WBC,Urine 0-5 /hpf (0-5)
[2018-08-05 16:58] LABS: Amorphous Sediment,Urine Rare /hpf; Bacteria,Urine Few /hpf; Mucus,Urine Rare /lpf (Occasional)
[2018-08-05] MEDS: Piperacil/Tazo 2.25 GM Premix 50 ML IV.SIG SCH (17:42)
[2018-08-06] MEDS: Piperacil/Tazo 2.25 GM Premix 50 ML IV.SIG SCH ×3 (00:24→18:05)
[2018-08-06] MEDS: Heparin - SQ 10,000 UNITS/ML Vial SQ SCH ×2 (00:25→12:51)
[2018-08-06] MEDS: Sodium Chloride 0.45 % Inj 1,000 ML IV.CONT SCH ×2 (04:33→18:07)
[2018-08-06 06:53] LABS: Baso # (Auto) 0.1 th/mm3 (0.0-0.2); Baso % (Auto) 0.7 % (0.0-2.0); Eos % (Auto) 5.3 % (0.0-4.0); Hematocrit 35.3 % (39.0-51.0); Hemoglobin 11.5 gm/dL (13.0-17.0); Lymph # (Auto) 1.4 th/mm3 (1.0-4.8); Mean Corpuscular HGB Conc 32.6 % (32.0-36.0); Mean Corpuscular Hemoglobin 31.9 pg (27.0-34.0); Mean Corpuscular Volume 97.9 fL (80.0-100.0); Mean Platelet Volume 8.3 fL (7.0-11.0); Mono % (Auto) 5.7 % (0.0-8.0); Neut # (Auto) 14.5 th/mm3 (1.8-7.7); Neut % (Auto) 80.3 % (16.0-70.0); Platelet Count 372 th/mm3 (150-450); Red Blood Count 3.61 mil/mm3 (4.50-5.90); Red Cell Distribution Width 14.6 % (11.6-17.2)
[2018-08-06 06:57] LABS: Potassium 3.8 meq/L (3.5-5.1)
[2018-08-06 07:00] LABS: Calcium 7.6 mg/dL (8.5-10.1)
[2018-08-06] MEDS: Insulin NovoLOG Aspart Correctional Sugar Inj SQ SCH ×4 (08:31→20:22)
[2018-08-06] MEDS: Insulin Detemir Inj 1,000 UNIT/10 ML Vial SQ SCH (09:02)
[2018-08-06] MEDS: Lactobacillus Acidophilus/L. Spores Tablet PO SCH ×3 (09:03→18:05)
[2018-08-06] MEDS: hydrALAZINE 50 MG Tablet PO SCH ×3 (09:03→18:05)
[2018-08-06] MEDS: Phenytoin Sodium 100 MG Capsule PO SCH ×2 (09:04→20:18)
[2018-08-06] MEDS: Phenytoin 50 MG Chewable Tablet PO SCH ×2 (09:04→20:18)
[2018-08-06] MEDS: amLODIPine 10 MG Tablet PO SCH (09:04)
[2018-08-06] MEDS: Propranolol 10 MG Tablet PO SCH ×2 (09:04→20:18)
[2018-08-06] MEDS: Budesonide-Formoterol 160/4.5 MCG 6 GM Inhaler INH SCH ×2 (09:05→20:23)
--- NOTE | 2018-08-06 17:58 | P.PN ---
Subjective Interval history: Follow-up obstructive uropathy, ileus, leukocytosis, acute kidney injury and hypertension. Patient is currently doing well. He is sitting in his chair. No acute concerns. is at bedside. Denies any chest pain, shortness of breath, fever or chills. He is urinating well. Physical Exam Vital signs: Vital Signs 08/05/18 20:00 08/06/18 00:00 08/06/18 04:00 Temperature 96.1 F L 98 F 98.2 F Pulse Rate 72 72 76 Respiratory Rate 20 20 20 Blood Pressure 179/71 H 170/69 H 189/84 H Pulse Oximetry 95 96 95 08/06/18 11:27 Temperature 96.4 F L Pulse Rate 68 Respiratory Rate Blood Pressure 165/75 H Pulse Oximetry 97 Intake & Output 08/05/18 08/06/18 08/06/18 18:59 06:59 18:59 Intake Total 1050 / 1050 1535 / 1535 50 / 50 Output Total 1300 / 1300 Balance 1050 / 1050 235 / 235 50 / 50 Weight 84.8 kg Intake: IV 1050 / 1050 1050 / 1050 50 / 50 1/2 Normal Saline Inj 1,000 ML 1000 / 1000 1000 / 1000 @ 75 mls/hr IV.CONT .[id number] ELAN Rx#:[id number] Zosyn 2.25 GM Premix 50 ML @ 50 / 50 50 / 50 50 / 50 100 mls/hr IV.SIG Q8H ELAN Rx#: [id number] Oral 485 / 485 Output: Urine 1300 / 1300 Other: # Voids 5 1 Date of Last Bowel Movement 08/05/18 08/05/18 # Bowel Movements 1 1 1 Narrative: GENERAL: Alert, NAD. SKIN: Warm and dry. HEAD: Normocephalic. EYES: No scleral icterus. No injection or drainage. NECK: Supple, trachea midline. No JVD or lymphadenopathy. CARDIOVASCULAR: Regular rate and rhythm without murmurs, gallops, or rubs. RESPIRATORY: Breath sounds equal bilaterally. No accessory muscle use. GASTROINTESTINAL: Abdomen soft, non-tender, nondistended. MUSCULOSKELETAL: No cyanosis. Lower ext edema 1+. BACK: Nontender without obvious deformity. No CVA tenderness. Results - Labs CBC & Chem 7: 08/06/18 06:30 08/06/18 06:30 Laboratory Results - last 24 hr 08/05/18 08/05/18 08/06/18 19:45 21:33 06:30 CBC w Diff Slide review pending WBC 18.0 H RBC 3.61 L Hgb 11.5 L Hct 35.3 L MCV 97.9 MCH 31.9 MCHC 32.6 RDW 14.6 Plt Count 372 MPV 8.3 Neut % (Auto) 80.3 H Lymph % (Auto) 8.0 L [place] % (Auto) 5.7 Eos % (Auto) 5.3 H Baso % (Auto) 0.7 Neut # (Auto) 14.5 H Lymph # (Auto) 1.4 [place] # (Auto) 1.0 H Eos # (Auto) 1.0 H Baso # (Auto) 0.1 WBC Differential . Diff Scan Auto diff confirmed Differential Comment . Sodium Potassium Chloride Carbon Dioxide Anion Gap BUN Creatinine Estimated GFR POC Glucose 194 H Random Glucose Calcium Magnesium Stl C.difficile DNA Amp Negative St C. diff Tox Epid 027 Negative 08/06/18 08/06/18 08/06/18 06:30 07:22 11:14 CBC w Diff WBC RBC Hgb Hct MCV MCH MCHC RDW Plt Count MPV Neut % (Auto) Lymph % (Auto) [place] % (Auto) Eos % (Auto) Baso % (Auto) Neut # (Auto) Lymph # (Auto) [place] # (Auto) Eos # (Auto) Baso # (Auto) WBC Differential Diff Scan Differential Comment Sodium 139 Potassium 3.8 Chloride 107 Carbon Dioxide 21.0 Anion Gap 11 BUN 59 H Creatinine 4.30 H Estimated GFR 13 L POC Glucose 112 H 254 H Random Glucose 107 H Calcium 7.6 L Magnesium 2.0 Stl C.difficile DNA Amp St C. diff Tox Epid 027 08/06/18 16:50 CBC w Diff WBC RBC Hgb Hct MCV MCH MCHC RDW Plt Count MPV Neut % (Auto) Lymph % (Auto) [place] % (Auto) Eos % (Auto) Baso % (Auto) Neut # (Auto) Lymph # (Auto) [place] # (Auto) Eos # (Auto) Baso # (Auto) WBC Differential Diff Scan Differential Comment Sodium Potassium Chloride Carbon Dioxide Anion Gap BUN Creatinine Estimated GFR POC Glucose 262 H Random Glucose Calcium Magnesium Stl C.difficile DNA Amp St C. diff Tox Epid 027 Microbiology 08/03/18 10:20 Blood - Peripheral Aerobic Blood Culture - Preliminary No growth in 3 days 08/03/18 10:20 Blood - Peripheral Anaerobic Blood Culture - Preliminary No growth in 3 days 08/03/18 10:20 Blood - Peripheral Aerobic Blood Culture - Preliminary No growth in 3 days 08/03/18 10:20 Blood - Peripheral Anaerobic Blood Culture - Preliminary No growth in 3 days - Imaging Head MRI 07/30/18 00:00 CONCLUSION: 1. No evidence of an acute stroke, hemorrhage, mass or mass effect. Abdomen/Pelvis CT 07/30/18 00:12 CONCLUSION: 1. 3 mm stone of the mid left ureter causing mild obstructive uropathy, including perinephric and periureteral edema. 2. Nonobstructing stone and benign appearing cyst seen of the left kidney lower pole as well. 3. No organized fluid. No abscess. 4. Cholelithiasis. 5. Aortoiliac atherosclerosis. No aneurysm. Head CT 07/30/18 06:00 CONCLUSION: 1. No acute intracranial abnormality demonstrated. 2. Chronic appearing ethmoid and maxillary sinusitis. . Abdomen X-Ray 07/31/18 00:00 CONCLUSION: Moderate gaseous distention. The only solid stool within the ascending colon. History of prostate cancer. Chest X-Ray 07/31/18 00:00 CONCLUSION: 1. Mild hazy perihilar and bibasilar opacities which could represent early pulmonary edema. 2. No consolidation or effusion. Abdomen/Bladder Ultrasound 08/02/18 00:00 CONCLUSION: 1. Normal renal ultrasound Abdomen/Pelvis CT 08/04/18 00:00 CONCLUSION: 1. 3 mm obstructing calculus in the distal left ureter 2. Significant peripelvic stranding surrounding the left renal collecting system which may represent disruption of the collecting system or an inflammatory process area. 3. Small bilateral pleural effusions and basilar airspace disease 4. Radioactive seeds throughout the prostate gland - Procedures None Assessment and Plan - Assessment (1) Calculus, ureteral Code(s): N20.1 - Calculus of ureter Status: Acute (2) Obstructive uropathy Code(s): N13.9 - Obstructive and reflux uropathy, unspecified Status: Acute (3) Urinary tract infection Code(s): N39.0 - Urinary tract infection, site not specified Status: Acute - Plan Mr. Solares is a pleasant 88-year-old male with history of IDDM, HTN, HLD, prostate cancer, and CKD presented on 07/29 with abdominal pain. U/A with evidence of infection and CT A/P showed left ureteral stone with mild obstructive uropathy. Urolithiasis with mild obstructive uropathy Left sided pyelonephritis - Initial CT A/P with 3 mm left ureteral stent with associated mild obstructive uropathy and 4 mm nonobstructing stone left lower pole - IV fluids if no evidence of fluid overload - Pain control - Antiemetics - Flomax - Given some degree of obstruction and associated UTI consulted urology recommended medical mgt as pt hi risk and expected to pass stone. - Subsequent ultrasound showed no hydronephrosis or stone (performed before the second abdominal CT) - Currently on Zosyn per ID. Diabetes mellitus - A1c 7.5 hyperglycemic improved after restarting long-acting insulin - SSI per protocol HTN - Continue home amlodipine - Holding home ARB and thiazide in light of ALY - Adjusted hydralazine - Clonidine PRN Acute on CKD stage 3 with hyperkalemia. - Creatinine 4.6 --> 4.3. - Continue IV fluids - Avoid nephrotoxic agents - Monitor renal function. Discussed with renal - Status post Kayexalate HLD - Resume home statin DVT prophylaxis: heparin (3) Urinary tract infection Qualifiers: Urinary tract infection type: site unspecified Hematuria presence: with hematuria Qualified Code(s): N39.0 - Urinary tract infection, site not specified; R31.9 - Hematuria, unspecified
--- NOTE | 2018-08-06 19:57 | P.PNID ---
Subjective Remarks: Says he feels better today No fevers No abdominal pain Antibiotics: Zosyn Lines: Peripheral IV line Past Medical History: DM HTN Prostate cancer Allergies/Adverse Reactions: Allergies lisinopril Allergy (Severe, Verified 07/30/18 00:15) Shortness of Breath cough simvastatin Allergy (Intermediate, Verified 07/30/18 00:15) muscle aches Objective Vital Signs 08/05/18 20:00 08/06/18 00:00 08/06/18 04:00 Temperature 96.1 F L 98 F 98.2 F Pulse Rate 72 72 76 Respiratory Rate 20 20 20 Blood Pressure 179/71 H 170/69 H 189/84 H Pulse Oximetry 95 96 95 08/06/18 11:27 08/06/18 19:09 Temperature 96.4 F L 97.8 F Pulse Rate 68 66 Respiratory Rate 16 Blood Pressure 165/75 H 153/70 H Pulse Oximetry 97 97 Intake & Output 08/06/18 08/06/18 08/07/18 06:59 18:59 06:59 Intake Total 1535 / 1535 1100 / 1100 1000 / 1000 Output Total 1300 / 1300 Balance 235 / 235 1100 / 1100 1000 / 1000 Weight 84.8 kg Intake: IV 1050 / 1050 1100 / 1100 1/2 Normal Saline Inj 1,000 ML 1000 / 1000 1000 / 1000 @ 75 mls/hr IV.CONT .[id number] ELAN Rx#:[id number] Zosyn 2.25 GM Premix 50 ML @ 50 / 50 100 / 100 100 mls/hr IV.SIG Q8H ELAN Rx#: [id number] Oral 485 / 485 1000 / 1000 Output: Urine 1300 / 1300 Other: # Voids 1 3 Date of Last Bowel Movement 08/05/18 # Bowel Movements 1 1 1 08/03/18 10:20 Blood - Peripheral Aerobic Blood Culture - Preliminary No growth in 3 days 08/03/18 10:20 Blood - Peripheral Anaerobic Blood Culture - Preliminary No growth in 3 days 08/03/18 10:20 Blood - Peripheral Aerobic Blood Culture - Preliminary No growth in 3 days 08/03/18 10:20 Blood - Peripheral Anaerobic Blood Culture - Preliminary No growth in 3 days Lab - Hematology Results 08/05/18 08/06/18 05:35 06:30 CBC w Diff Slide review pending Slide review pending WBC 21.0 H 18.0 H RBC 3.72 L 3.61 L Hgb 12.1 L 11.5 L Hct 36.4 L 35.3 L MCV 97.8 97.9 MCH 32.6 31.9 MCHC 33.3 32.6 RDW 15.0 14.6 Plt Count 378 372 MPV 8.6 8.3 Neut % (Auto) 81.3 H 80.3 H Lymph % (Auto) 6.9 L 8.0 L [place] % (Auto) 6.8 5.7 Eos % (Auto) 4.7 H 5.3 H Baso % (Auto) 0.3 0.7 Neut # (Auto) 17.0 H 14.5 H Lymph # (Auto) 1.5 1.4 [place] # (Auto) 1.4 H 1.0 H Eos # (Auto) 1.0 H 1.0 H Baso # (Auto) 0.1 0.1 WBC Differential . . Diff Scan Auto diff confirmed Auto diff confirmed Differential Comment . . Platelet Estimate Normal Platelet Morphology Normal RBC Morphology Normal Lab - Chemistry Results 08/04/18 08/05/18 08/05/18 20:18 05:35 07:27 Sodium 138 Potassium 3.7 Chloride 106 Carbon Dioxide 19.4 L Anion Gap 13 BUN 63 H Creatinine 4.60 H Estimated GFR 12 L POC Glucose 164 H 122 H Random Glucose 127 H Calcium 7.5 L Magnesium 2.0 08/05/18 08/05/18 08/05/18 11:09 16:54 21:33 Sodium Potassium Chloride Carbon Dioxide Anion Gap BUN Creatinine Estimated GFR POC Glucose 245 H 255 H 194 H Random Glucose Calcium Magnesium 08/06/18 08/06/18 08/06/18 06:30 07:22 11:14 Sodium 139 Potassium 3.8 Chloride 107 Carbon Dioxide 21.0 Anion Gap 11 BUN 59 H Creatinine 4.30 H Estimated GFR 13 L POC Glucose 112 H 254 H Random Glucose 107 H Calcium 7.6 L Magnesium 2.0 08/06/18 16:50 Sodium Potassium Chloride Carbon Dioxide Anion Gap BUN Creatinine Estimated GFR POC Glucose 262 H Random Glucose Calcium Magnesium Imaging: ITS Impressions Head MRI 07/30/18 00:00 CONCLUSION: 1. No evidence of an acute stroke, hemorrhage, mass or mass effect. Head CT 07/30/18 06:00 CONCLUSION: 1. No acute intracranial abnormality demonstrated. 2. Chronic appearing ethmoid and maxillary sinusitis. . Abdomen X-Ray 07/31/18 00:00 CONCLUSION: Moderate gaseous distention. The only solid stool within the ascending colon. History of prostate cancer. Chest X-Ray 07/31/18 00:00 CONCLUSION: 1. Mild hazy perihilar and bibasilar opacities which could represent early pulmonary edema. 2. No consolidation or effusion. Abdomen/Bladder Ultrasound 08/02/18 00:00 CONCLUSION: 1. Normal renal ultrasound Abdomen/Pelvis CT 08/04/18 00:00 CONCLUSION: 1. 3 mm obstructing calculus in the distal left ureter 2. Significant peripelvic stranding surrounding the left renal collecting system which may represent disruption of the collecting system or an inflammatory process area. 3. Small bilateral pleural effusions and basilar airspace disease 4. Radioactive seeds throughout the prostate gland Physical Exam: Alert, Oriented No fever No icterus Chest : Clear Heart : S1 S2 normal Abdomen- no distension Soft Non tender No hepatosplenomegaly Bowel sounds present Assessment and Plan (1) Urinary tract infection Status: Acute Code(s): N39.0 - Urinary tract infection, site not specified (2) Calculus, ureteral Status: Acute Code(s): N20.1 - Calculus of ureter (3) Leukocytosis Status: Acute Code(s): D72.829 - Elevated white blood cell count, unspecified (4) Acute worsening of stage 3 chronic kidney disease Status: Acute Code(s): N18.3 - Chronic kidney disease, stage 3 (moderate) - Plan Continue IV Zosyn Follow cultures C diff negative Follow CBC (1) Urinary tract infection Qualifiers: Urinary tract infection type: site unspecified Hematuria presence: with hematuria Qualified Code(s): N39.0 - Urinary tract infection, site not specified; R31.9 - Hematuria, unspecified (3) Leukocytosis Qualifiers: Leukocytosis type: unspecified Qualified Code(s): D72.829 - Elevated white blood cell count, unspecified
[2018-08-07] MEDS: Heparin - SQ 10,000 UNITS/ML Vial SQ SCH ×2 (00:18→12:07)
[2018-08-07] MEDS: Piperacil/Tazo 2.25 GM Premix 50 ML IV.SIG SCH ×3 (00:18→17:39)
[2018-08-07] MEDS: Sodium Chloride 0.45 % Inj 1,000 ML IV.CONT SCH ×2 (06:22→20:46)
[2018-08-07] MEDS: Budesonide-Formoterol 160/4.5 MCG 6 GM Inhaler INH SCH ×2 (08:42→20:48)
[2018-08-07] MEDS: Insulin Detemir Inj 1,000 UNIT/10 ML Vial SQ SCH (08:42)
[2018-08-07] MEDS: Lactobacillus Acidophilus/L. Spores Tablet PO SCH ×3 (08:44→17:39)
[2018-08-07] MEDS: amLODIPine 10 MG Tablet PO SCH (08:44)
[2018-08-07] MEDS: Phenytoin 50 MG Chewable Tablet PO SCH ×2 (08:44→20:47)
[2018-08-07] MEDS: hydrALAZINE 50 MG Tablet PO SCH ×3 (08:44→17:39)
[2018-08-07] MEDS: Insulin NovoLOG Aspart Correctional Sugar Inj SQ SCH ×4 (08:45→20:52)
[2018-08-07] MEDS: Phenytoin Sodium 100 MG Capsule PO SCH ×2 (08:45→20:48)
[2018-08-07] MEDS: Propranolol 10 MG Tablet PO SCH ×2 (08:45→20:47)
[2018-08-07 13:32] LABS: Potassium 3.6 meq/L (3.5-5.1)
[2018-08-07 13:34] LABS: Calcium 7.9 mg/dL (8.5-10.1)
[2018-08-07 13:39] LABS: Carbon Dioxide 18.3 meq/L (21.0-32.0)
--- NOTE | 2018-08-07 14:24 | P.PNNP ---
Subjective Interval history: Patient was sitting in his chair, no distress. is at bedside. Patient stated he is urinating well. Patient stated he had diarrhea earlier, test to rule out Cdiff was ordered. Renal function has declined since admission but has been stable. <Carmen Lerma - Last Filed: 08/07/18 14:10> Physical Exam Vital signs: Vital Signs 08/06/18 19:09 08/06/18 20:00 08/07/18 00:00 Temperature 97.8 F 97.6 F 96.9 F L Pulse Rate 66 71 61 Respiratory Rate 16 20 20 Blood Pressure 153/70 H 182/84 H 170/79 H Pulse Oximetry 97 95 96 08/07/18 04:00 08/07/18 08:00 08/07/18 12:00 Temperature 98.8 F 96.5 F L 97.4 F L Pulse Rate 74 74 67 Respiratory Rate 20 18 18 Blood Pressure 181/83 H 194/80 H 177/72 H Pulse Oximetry 95 96 96 Intake & Output 08/06/18 08/07/18 08/07/18 18:59 06:59 18:59 Intake Total 1100 / 1100 2290 / 2290 50 / 50 Balance 1100 / 1100 2290 / 2290 50 / 50 Weight 84.8 kg Intake: IV 1100 / 1100 1050 / 1050 50 / 50 1/2 Normal Saline Inj 1,000 ML 1000 / 1000 1000 / 1000 @ 75 mls/hr IV.CONT .[id number] ELAN Rx#:[id number] Zosyn 2.25 GM Premix 50 ML @ 100 / 100 50 / 50 50 / 50 100 mls/hr IV.SIG Q8H ELAN Rx#: [id number] Oral 1240 / 1240 Other: # Voids 1 2 Date of Last Bowel Movement 08/06/18 # Bowel Movements 1 1 - Constitutional no acute distress - Routine HEENT Exam Head: Present: normocephalic Eye: Present: EOMI, PERRL ENT: Present: mucous membranes moist - Routine Neck Exam Present: trachea midline. Absent: JVD, tracheal deviation - Routine Respiratory Exam Present: CTA bilaterally. Absent: accessory muscle use, respiratory distress - Routine Cardiovascular Exam Present: RRR - Routine Abdominal Exam Present: soft. Absent: tenderness - Routine Extremities Exam Present: vascular access. Absent: edema - Routine Neurological Exam Present: alert, oriented X3 - Detailed Neurological Exam: Coma Scale Eye Opening: Spontaneous Verbal Response: Oriented - Routine Psychiatric Exam Present: normal affect <Carmen Lerma - Last Filed: 08/07/18 14:10> Vital signs: Vital Signs 08/06/18 19:09 08/06/18 20:00 08/07/18 00:00 Temperature 97.8 F 97.6 F 96.9 F L Pulse Rate 66 71 61 Respiratory Rate 16 20 20 Blood Pressure 153/70 H 182/84 H 170/79 H Pulse Oximetry 97 95 96 08/07/18 04:00 08/07/18 08:00 08/07/18 12:00 Temperature 98.8 F 96.5 F L 97.4 F L Pulse Rate 74 74 82 Respiratory Rate 20 18 18 Blood Pressure 181/83 H 194/80 H 177/72 H Pulse Oximetry 95 96 96 08/07/18 16:00 Temperature 97.1 F L Pulse Rate 69 Respiratory Rate 18 Blood Pressure 180/79 H Pulse Oximetry 96 Intake & Output 08/06/18 08/07/18 08/07/18 18:59 06:59 18:59 Intake Total 1100 / 1100 2290 / 2290 50 / 50 Balance 1100 / 1100 2290 / 2290 50 / 50 Weight 84.8 kg Intake: IV 1100 / 1100 1050 / 1050 50 / 50 1/2 Normal Saline Inj 1,000 ML 1000 / 1000 1000 / 1000 @ 75 mls/hr IV.CONT .[id number] ELAN Rx#:[id number] Zosyn 2.25 GM Premix 50 ML @ 100 / 100 50 / 50 50 / 50 100 mls/hr IV.SIG Q8H ELAN Rx#: [id number] Oral 1240 / 1240 Other: # Voids 1 2 Date of Last Bowel Movement 08/06/18 08/06/18 # Bowel Movements 1 1 <Lasha Hoffman - Last Filed: 08/07/18 17:22> Assessment and Plan - Assessment (1) Acute worsening of stage 3 chronic kidney disease Code(s): N18.3 - Chronic kidney disease, stage 3 (moderate) Status: Acute Plan: Renal function has declined since admission but has been stable. It could be due to left ureteral obstruction due to stone, and hydronephrosis. It is possible that he has passed the stone. Renal US did not reveal hydronephrosis. Continue IVF. Avoid nephrotoxic agents. Monitor urine output and renal function. No immediate need for dialysis. Hypocalcemia noted, has improved from yesterday. Ordered BMP, Albumin, and Phosphorus lab. Creatinine 4.10 improved. History of kidney stone disease. Will see as needed. (2) Calculus, ureteral Code(s): N20.1 - Calculus of ureter Status: Acute Plan: 3 mm stone in the left ureter. May have passed it? (3) Leukocytosis Code(s): D72.829 - Elevated white blood cell count, unspecified Status: Acute Qualifiers: Leukocytosis type: unspecified Qualified Code(s): D72.829 - Elevated white blood cell count, unspecified Plan: UTI? On Zosyn. <Carmen Lerma - Last Filed: 08/07/18 14:10> - Assessment (1) Acute worsening of stage 3 chronic kidney disease Code(s): N18.3 - Chronic kidney disease, stage 3 (moderate) Status: Acute (2) Calculus, ureteral Code(s): N20.1 - Calculus of ureter Status: Acute (3) Leukocytosis Code(s): D72.829 - Elevated white blood cell count, unspecified Status: Acute Qualifiers: Leukocytosis type: unspecified Qualified Code(s): D72.829 - Elevated white blood cell count, unspecified - Attending Attestation patient's renal function is improving. Avoid nephrotoxic agents. Taper off fluids. Will see as needed. <Lasha Hoffman - Last Filed: 08/07/18 17:22>
[2018-08-07] MEDS ORDERED: Insulin Detemir Inj 1,000 UNIT/10 ML Vial SQ SCH (15:09)
--- NOTE | 2018-08-07 15:15 | P.PN ---
Subjective Interval history: Follow-up obstructive uropathy, ileus, leukocytosis, acute kidney injury and hypertension. Patient is currently doing well. Denies any chest pain, shortness of breath, fever or chills. However he complains of frequent diarrhea. Physical Exam Vital signs: Vital Signs 08/06/18 19:09 08/06/18 20:00 08/07/18 00:00 Temperature 97.8 F 97.6 F 96.9 F L Pulse Rate 66 71 61 Respiratory Rate 16 20 20 Blood Pressure 153/70 H 182/84 H 170/79 H Pulse Oximetry 97 95 96 08/07/18 04:00 08/07/18 08:00 08/07/18 12:00 Temperature 98.8 F 96.5 F L 97.4 F L Pulse Rate 74 74 67 Respiratory Rate 20 18 18 Blood Pressure 181/83 H 194/80 H 177/72 H Pulse Oximetry 95 96 96 Intake & Output 08/06/18 08/07/18 08/07/18 18:59 06:59 18:59 Intake Total 1100 / 1100 2290 / 2290 50 / 50 Balance 1100 / 1100 2290 / 2290 50 / 50 Weight 84.8 kg Intake: IV 1100 / 1100 1050 / 1050 50 / 50 1/2 Normal Saline Inj 1,000 ML 1000 / 1000 1000 / 1000 @ 75 mls/hr IV.CONT .[id number] ELAN Rx#:[id number] Zosyn 2.25 GM Premix 50 ML @ 100 / 100 50 / 50 50 / 50 100 mls/hr IV.SIG Q8H ELAN Rx#: [id number] Oral 1240 / 1240 Other: # Voids 1 2 Date of Last Bowel Movement 08/06/18 # Bowel Movements 1 1 Narrative: GENERAL: Alert, NAD. SKIN: Warm and dry. HEAD: Normocephalic. EYES: No scleral icterus. No injection or drainage. NECK: Supple, trachea midline. No JVD or lymphadenopathy. CARDIOVASCULAR: Regular rate and rhythm without murmurs, gallops, or rubs. RESPIRATORY: Breath sounds equal bilaterally. No accessory muscle use. GASTROINTESTINAL: Abdomen soft, non-tender, nondistended. MUSCULOSKELETAL: No cyanosis. Lower ext edema 1+. BACK: Nontender without obvious deformity. No CVA tenderness. Results - Labs CBC & Chem 7: 08/06/18 06:30 08/07/18 13:10 Laboratory Results - last 24 hr 08/06/18 08/06/18 08/07/18 16:50 20:22 07:56 Sodium Potassium Chloride Carbon Dioxide Anion Gap BUN Creatinine Estimated GFR POC Glucose 262 H 171 H 135 H Random Glucose Calcium 08/07/18 08/07/18 11:45 13:10 Sodium 138 Potassium 3.6 Chloride 106 Carbon Dioxide 18.3 L Anion Gap 14 BUN 51 H Creatinine 4.10 H Estimated GFR 14 L POC Glucose 199 H Random Glucose 244 H D Calcium 7.9 L Microbiology 08/03/18 10:20 Blood - Peripheral Aerobic Blood Culture - Preliminary No growth in 4 days 08/03/18 10:20 Blood - Peripheral Anaerobic Blood Culture - Preliminary No growth in 4 days 08/03/18 10:20 Blood - Peripheral Aerobic Blood Culture - Preliminary No growth in 4 days 08/03/18 10:20 Blood - Peripheral Anaerobic Blood Culture - Preliminary No growth in 4 days - Procedures None Assessment and Plan - Assessment (1) Calculus, ureteral Code(s): N20.1 - Calculus of ureter Status: Acute (2) Obstructive uropathy Code(s): N13.9 - Obstructive and reflux uropathy, unspecified Status: Acute (3) Urinary tract infection Code(s): N39.0 - Urinary tract infection, site not specified Status: Acute - Plan Mr. Solares is a pleasant 88-year-old male with history of IDDM, HTN, HLD, prostate cancer, and CKD presented on 07/29 with abdominal pain. U/A with evidence of infection and CT A/P showed left ureteral stone with mild obstructive uropathy. Urolithiasis with mild obstructive uropathy Left sided pyelonephritis - Initial CT A/P with 3 mm left ureteral stent with associated mild obstructive uropathy and 4 mm nonobstructing stone left lower pole - IV fluids if no evidence of fluid overload - Pain control - Antiemetics - Flomax - Given some degree of obstruction and associated UTI consulted urology recommended medical mgt as pt hi risk and expected to pass stone. - Subsequent ultrasound showed no hydronephrosis or stone (performed before the second abdominal CT) - Currently on Zosyn per ID. Will wait for ID recommendations with regards to need for any further antibiotics. Diarrhea -Will check C. Diff again today. Diabetes mellitus -Continue sliding scale insulin and Levemir. Increase Levemir from 10units to 12 units - SSI per protocol HTN - Continue home amlodipine - Holding home ARB and thiazide in light of ALY - Adjusted hydralazine - Clonidine PRN Acute on CKD stage 3 with hyperkalemia. - Creatinine 4.3 --> 4.10. - Continue IV fluids - Avoid nephrotoxic agents - Status post Kayexalate HLD - Resume home statin DVT prophylaxis: heparin (3) Urinary tract infection Qualifiers: Urinary tract infection type: site unspecified Hematuria presence: with hematuria Qualified Code(s): N39.0 - Urinary tract infection, site not specified; R31.9 - Hematuria, unspecified
[2018-08-08] MEDS: Heparin - SQ 10,000 UNITS/ML Vial SQ SCH ×2 (01:44→12:00)
[2018-08-08] MEDS: Piperacil/Tazo 2.25 GM Premix 50 ML IV.SIG SCH ×2 (01:44→08:30)
[2018-08-08] MEDS: Budesonide-Formoterol 160/4.5 MCG 6 GM Inhaler INH SCH (08:28)
[2018-08-08] MEDS: Propranolol 10 MG Tablet PO SCH (08:28)
[2018-08-08] MEDS: Lactobacillus Acidophilus/L. Spores Tablet PO SCH ×3 (08:28→17:00)
[2018-08-08] MEDS: Phenytoin 50 MG Chewable Tablet PO SCH (08:28)
[2018-08-08] MEDS: amLODIPine 10 MG Tablet PO SCH (08:28)
[2018-08-08] MEDS: Phenytoin Sodium 100 MG Capsule PO SCH (08:29)
[2018-08-08] MEDS: hydrALAZINE 50 MG Tablet PO SCH ×3 (08:29→17:00)
[2018-08-08] MEDS: Insulin NovoLOG Aspart Correctional Sugar Inj SQ SCH ×3 (08:30→16:57)
[2018-08-08 10:00] LABS: Potassium 3.4 meq/L (3.5-5.1)
[2018-08-08 10:03] LABS: Albumin 2.7 g/dL (3.4-5.0); Calcium 8.2 mg/dL (8.5-10.1); Carbon Dioxide 20.2 meq/L (21.0-32.0)
[2018-08-08 10:06] LABS: Phosphorus 3.4 mg/dL (2.5-4.9)
[2018-08-08] MEDS: Sodium Chloride 0.45 % Inj 1,000 ML IV.CONT SCH (11:25)
[2018-08-08 12:38] VITALS: RESP 19
[2018-08-08 16:43] VITALS: PULSE 77; TEMP 97.6; O2SAT 97
[2018-08-08 17:19] VITALS: BP 161/72
--- NOTE | 2018-08-08 18:35 | P.DCO ---
- Physical Therapy Order: Evaluate and treat, Improve ambulation, Strength and gait training - Home Health Nursing Order: Medical education, Signs/symptoms of disease process, Diabetic education , Medication education-adverse effect, Nursing assessment with vital signs - Case Management Consult No - Certification I have seen patient Luis Solares on 08/08/18. My clinical findings support the need for the requested home health care services because: Limited mobility due to disease progression, Deconditioned with increased weakness, Limited ability to care for self, Need for psychosocial assistance, High risk of falls, Infection with risk of complications I certify that my clinical findings support that this patient is homebound because: Impaired cognitive ability/safety, Unsteady gait/balance, Unsafe to leave home unassisted, Non-ambulatory: confined to bed or chair, Unable to use public transportation
--- NOTE | 2018-08-08 18:37 | P.DS ---
Date of admission: 07/30/18 02:41 Primary care physician: [facility] Attending physician on discharge: Faustino Armstrong Anticipated date of discharge: 08/08/18 Brief History from admission: 88-year-old male with history of IDDM, HTN, HLD, prostate cancer, and CKD presented on 07/29 with abdominal pain. The patient states that yesterday evening he noted sudden onset of mid and left lower quadrant abdominal pain that was severe and constant. Pain is exacerbated by movement. He states he felt a little nauseous but had no vomiting but does note he had several episodes of diarrhea 2 days ago as well. He denies black or bloody stools. He denies any dysuria, urgency, hesitancy, or hematuria. On my evaluation this morning (07/30), the patient was noted to have some sort of jaw tremor oropharyngeal dystonic reaction. This was reported by nursing at around 5:30 AM this morning. Because of the movements the patient has been having difficulty speaking fluently. He denies any confusion, blurry vision, headache, paresthesias, or unilateral weakness. His was present at the bedside states that this is new for him. The patient is unsure if it is a reaction from the Rocephin he received. He does not take any antipsychotics or have been given any in the hospital. PMH: IDDM, HTN, HLD, prostate CA, CKD (unknown stage or baseline creatinine) Surgical hx: parotid gland tumor removed, prostate seed Family hx: sister with DM Social hx: lives with , occasionally drinks a beer, quit smoking 1978 Inpatient Certification I certify that the inpatient services were ordered in accordance with Medicare regulations governing the order. This includes certification that hospital inpatient services are reasonable and necessary and in the case of services not specified as inpatient-only under 42 CFR 419.22(n), that they are appropriately provided as inpatient services in accordance to with the 2-midnight benchmark under 43 CFR 412.3(e) Estimated LOS: 2-3 days Plans after D/C: home vs. [facility] Patient update on day of discharge: Follow-up obstructive uropathy, ileus, leukocytosis, acute kidney injury and hypertension. Patient is doing well. No acute concerns. Wants to go home. DS: Diagnosis - Discharge Diagnosis (1) Calculus, ureteral Status: Acute (2) Obstructive uropathy Status: Acute (3) Urinary tract infection Status: Acute DS: Medications - Discharge Medications Prescriptions: acidophilus-sporogenes [Acidophilus Ex Str (L. sporog)] 1 tab PO TID 7 Days #21 tab clonidine HCl [Catapres] 0.1 mg PO Q6H PRN #30 tab PRN Reason: Sbp>180, Dbp>100 hydralazine 100 mg PO TID 30 Days #180 tab insulin aspart U-100 1 sliding scale dose SUBCUT UD 30 Days ml phenytoin [Dilantin Infatabs] 150 mg PO BID 30 Days #180 tab tamsulosin 0.4 mg PO DAILY #30 cap DS: Summary Hospital Course: Mr. Solares is a pleasant 88-year-old male with history of IDDM, HTN, HLD, prostate cancer, and CKD presented on 07/29 with abdominal pain. U/A with evidence of infection and CT A/P showed left ureteral stone with mild obstructive uropathy. Urolithiasis with mild obstructive uropathy Left sided pyelonephritis - Initial CT A/P with 3 mm left ureteral stent with associated mild obstructive uropathy and 4 mm nonobstructing stone left lower pole - IV fluids if no evidence of fluid overload - Pain control - Antiemetics - Flomax - Given some degree of obstruction and associated UTI consulted urology recommended medical mgt as pt hi risk and expected to pass stone. - Subsequent ultrasound showed no hydronephrosis or stone (performed before the second abdominal CT) - Discussed with ID - recommended to discontinue Zosyn. Diarrhea -Negative C. Diff 08/07/2018. Diabetes mellitus -Continue sliding scale insulin and Levemir. - SSI per protocol HTN - Continue home amlodipine - Holding home ARB and thiazide in light of ALY - Adjusted hydralazine - Clonidine PRN Acute on CKD stage 3 with hyperkalemia. - Creatinine 4.3 --> 4.10. - Continue IV fluids - Avoid nephrotoxic agents - Status post Kayexalate HLD - Resume home statin DVT prophylaxis: heparin - Time Spent with Patient Total time spent providing and/or coordinating discharge services: Greater than 30 minutes - Quality: VTE Deep Vein Thrombosis/Pulmonary Embolism Present on Admission: No Exam Vital signs: Vital Signs 08/07/18 20:00 08/08/18 00:00 08/08/18 04:00 Temperature 96.5 F L 97.8 F 98.7 F Pulse Rate 73 61 76 Respiratory Rate 20 20 20 Blood Pressure 188/94 H 164/72 H 173/76 H Pulse Oximetry 97 96 99 08/08/18 08:00 08/08/18 12:00 08/08/18 12:53 Temperature 97.7 F 97.0 F L Pulse Rate 73 67 69 Respiratory Rate 18 19 Blood Pressure 173/78 H 195/84 H Pulse Oximetry 95 95 08/08/18 14:02 08/08/18 15:48 08/08/18 16:00 Temperature 97.6 F Pulse Rate 73 77 Respiratory Rate 19 Blood Pressure 178/78 H 183/79 H Pulse Oximetry 97 08/08/18 17:19 Temperature Pulse Rate Respiratory Rate Blood Pressure 161/72 H Pulse Oximetry Intake & Output 08/07/18 08/08/18 08/08/18 18:59 06:59 18:59 Intake Total 1100 / 1100 170 / 170 1050 / 1050 Balance 1100 / 1100 170 / 170 1050 / 1050 Weight 84.7 kg Intake: IV 1100 / 1100 50 / 50 1050 / 1050 1/2 Normal Saline Inj 1,000 ML 1000 / 1000 1000 / 1000 @ 75 mls/hr IV.CONT .[id number] ELAN Rx#:[id number] Zosyn 2.25 GM Premix 50 ML @ 100 / 100 50 / 50 50 / 50 100 mls/hr IV.SIG Q8H ELAN Rx#: [id number] Oral 120 / 120 Other: # Voids 3 3 4 Date of Last Bowel Movement 08/06/18 08/07/18 # Bowel Movements 3 Narrative: GENERAL: Alert, NAD. SKIN: Warm and dry. HEAD: Normocephalic. EYES: No scleral icterus. No injection or drainage. NECK: Supple, trachea midline. No JVD or lymphadenopathy. CARDIOVASCULAR: Regular rate and rhythm without murmurs, gallops, or rubs. RESPIRATORY: Breath sounds equal bilaterally. No accessory muscle use. GASTROINTESTINAL: Abdomen soft, non-tender, nondistended. MUSCULOSKELETAL: No cyanosis. Lower ext edema 1+. BACK: Nontender without obvious deformity. No CVA tenderness. Results Procedures completed during hospitalization: None Labs on day of discharge: Labs from last 24 hours 08/08/18 08/08/18 08/08/18 16:57 11:33 09:17 Sodium 140 Potassium 3.4 L Chloride 108 H Carbon Dioxide 20.2 L Anion Gap 12 BUN 47 H Creatinine 4.00 H Estimated GFR 14 L POC Glucose 182 H 244 H Random Glucose 190 H Calcium 8.2 L Phosphorus 3.4 Albumin 2.7 L Stl C.difficile DNA Amp St C. diff Tox Epid 027 08/08/18 08/07/18 08/07/18 07:46 20:52 16:00 Sodium Potassium Chloride Carbon Dioxide Anion Gap BUN Creatinine Estimated GFR POC Glucose 135 H 185 H Random Glucose Calcium Phosphorus Albumin Stl C.difficile DNA Amp Negative St C. diff Tox Epid 027 Negative - Impressions ITS Impressions Head MRI 07/30/18 00:00 CONCLUSION: 1. No evidence of an acute stroke, hemorrhage, mass or mass effect. Head CT 07/30/18 06:00 CONCLUSION: 1. No acute intracranial abnormality demonstrated. 2. Chronic appearing ethmoid and maxillary sinusitis. . Abdomen X-Ray 07/31/18 00:00 CONCLUSION: Moderate gaseous distention. The only solid stool within the ascending colon. History of prostate cancer. Chest X-Ray 07/31/18 00:00 CONCLUSION: 1. Mild hazy perihilar and bibasilar opacities which could represent early pulmonary edema. 2. No consolidation or effusion. Abdomen/Bladder Ultrasound 08/02/18 00:00 CONCLUSION: 1. Normal renal ultrasound Abdomen/Pelvis CT 08/04/18 00:00 CONCLUSION: 1. 3 mm obstructing calculus in the distal left ureter 2. Significant peripelvic stranding surrounding the left renal collecting system which may represent disruption of the collecting system or an inflammatory process area. 3. Small bilateral pleural effusions and basilar airspace disease 4. Radioactive seeds throughout the prostate gland Discharge Plan - Discharge Disposition Patient Disposition: W/Home Health Service - Discharge Condition Condition: Stable - Discharge Order Discharge Orders: Discharge Order (Routine); Ordered 08/08/18 Ordered By: Faustino Armstrong - Discharge Details Anticipated Discharge Date: 08/08/18 Discharge Comment: Discharge if systolic BP < 175 - Physicians Team Primary Care Provider: [facility] [place] Attending Provider: Faustino Armstrong Other Providers: Bro Colon MD, PhD ; Lasha Hoffman MD ; Anuradha Allen MD ; Clyde Forst MD
== END 2018-08-08 19:05 | disposition home health service (06) ==
LOC: PHED 19:17 → PHEDA 19:17 → OBSVTOIN 07-30 02:41 → PH3 07-30 03:20
PROVIDERS: ADMIT Hospitalist; ATTEND Hospitalist

== ENCOUNTER 2018-11-23 13:08 | Inpatient (IN) ==
[2018-11-23] MEDS ORDERED: Morphine Inj 4 MG/ML Vial IV.PUSH ONE (13:30)
[2018-11-23] MEDS ORDERED: Diatrizoate Meglum/Diatrizoate Sod Liq 9 ML UDC PO ONE (13:32)
[2018-11-23 13:53] LABS: Baso # (Auto) 0.1 th/mm3 (0.0-0.2); Baso % (Auto) 0.3 % (0.0-2.0); Eos # (Auto) 0.5 th/mm3 (0.0-0.4); Eos % (Auto) 2.1 % (0.0-4.0); Hematocrit 42.3 % (39.0-51.0); Hemoglobin 13.7 gm/dL (13.0-17.0); Lymph # (Auto) 1.3 th/mm3 (1.0-4.8); Lymph % (Auto) 5.1 % (9.0-44.0); Mean Corpuscular HGB Conc 32.3 % (32.0-36.0); Mean Corpuscular Hemoglobin 30.8 pg (27.0-34.0); Mean Corpuscular Volume 95.1 fL (80.0-100.0); Mean Platelet Volume 9.1 fL (7.0-11.0); Mono # (Auto) 1.4 th/mm3 (0.0-0.9); Mono % (Auto) 5.4 % (0.0-8.0); Neut % (Auto) 87.1 % (16.0-70.0); Platelet Count 446 th/mm3 (150-450); Red Blood Count 4.45 mil/mm3 (4.50-5.90); Red Cell Distribution Width 15.8 % (11.6-17.2); White Blood Count 25.3 th/mm3 (4.0-11.0)
[2018-11-23 14:00] LABS: Chloride 103 meq/L (98-107); Sodium 135 meq/L (136-145)
[2018-11-23] MEDS ORDERED: Sodium Chlor 0.9% Inj 500 ML IV.SIG SCH (14:00)
[2018-11-23 14:03] LABS: Calcium 8.8 mg/dL (8.5-10.1)
[2018-11-23 14:04] LABS: Albumin 3.3 g/dL (3.4-5.0); Anion Gap 9 meq/L (5-15); Blood Urea Nitrogen 35 mg/dL (7-18); Carbon Dioxide 23.4 meq/L (21.0-32.0); Glucose,Random 200 mg/dL (74-106); Lipase 56 U/L (73-393)
[2018-11-23 14:05] LABS: Activated Partial Thrombo Time 29.9 sec (23.4-31.7); Prothrombin Time 10.5 sec (9.8-11.6)
[2018-11-23 14:07] LABS: Alanine Aminotransferase 16 U/L (12-78); Aspartate Aminotransferase 11 U/L (15-37); Glomerular Filtration Rate 19 mL/min (>89)
[2018-11-23 14:08] LABS: Total Protein 6.8 g/dL (6.4-8.2)
[2018-11-23 14:10] LABS: Alkaline Phosphatase 116 U/L (45-117)
[2018-11-23 14:23] LABS: Platelet Estimate Normal (Normal); Platelet Morphology Normal (Normal); Toxic Granulation 2+
[2018-11-23 15:13] LABS: Bilirubin,Urine Negative (Negative); Clarity,Urine Clear (Clear); Color,Urine Yellow (Yellw/Straw); Glucose,Urine (UA) Negative (Negative); Leukocyte Esterase,Urine Negative (Negative); Nitrite,Urine Negative (Negative); Specific Gravity,Urine Greater/Equal 1.030 (1.002-1.035); Urobilinogen,Urine 0.2 mg/dL (Less than 2)
[2018-11-23 15:21] LABS: RBC,Urine 0-3 /hpf (0-3); WBC,Urine 0-5 /hpf (0-5)
[2018-11-23 15:23] LABS: Bacteria,Urine Occasional /hpf
--- NOTE | 2018-11-23 15:50 | CT ---
EXAM DATE: 11/23/2018 3:41 PM EST AGE/SEX: 88 years / Male INDICATIONS: Right lower abdomen pain, Diagnosed with renal stone yesterday, Increased pain intensit y today CLINICAL DATA: This is the patient's initial encounter. Patient reports that signs and symptoms have been present for 2 days and indicates a pain score of 10/10. MEDICAL/SURGICAL HISTORY: Chronic kidney disease. Hypertension. Carcinoma, prostatic. Diabet ic, Parotid Neoplasm . Parotidectomy RADIATION DOSE: 16.87 CTDI (mGy) COMPARISON: [facility], CT ABDOMEN & PELVIS W/O CONTRAST, 11/22/2018. . TECHNIQUE: Multiple contiguous axial images were obtained through the abdomen. Images were obtained using multiple row detector helical technique. Using automated exposure control and adjustment of the mA and/or kV according to patient size, radiation dose was kept as low as reasonably achievable to o btain optimal diagnostic quality images. DICOM format image data is available electronically for rev iew and comparison. FINDINGS: Lower Lungs: Mild bilateral lower lobe atelectasis and trace bilateral pleural effusions. Liver: Small gallstones at the dependent portion of the gallbladder. Liver is within normal limits. Spleen: Enlarged spleen measuring 13 cm in craniocaudal dimension. Pancreas: Unremarkable without mass or calcification. Kidneys: 1.0 x 0.4 cm proximal right ureteral calculus just below the ureteropelvic junction. 6 mm c alculus in the inferior aspect of the renal pelvis. Several adjacent calculi measuring approximately 7 mm in aggregate in the lower pole of the right kidney. Mild right hydronephrosis unchanged. The ure ter distal to the proximal right sided calculus is normal diameter. Adrenal Glands: Unremarkable. Aorta: Calcified. Normal diameter. Bowel/Mesentery: No evidence of bowel dilatation. No free air or free fluid. Appendix not identified . Abdominal Wall: Intact. Retroperitoneum: No evidence of adenopathy in the retrocrural, para-aortic, or deep pelvic regions. Bladder: Contours are smooth. Reproductive Organs: Multiple metallic densities in the prostate. Inguinal: The inguinal region is unremarkable without evidence of adenopathy. Bony Structures: Degenerative findings of the lumbar spine. CONCLUSION: 1. 1.0 x 0.4 cm proximal right ureteral calculus just below the ureteropelvic junction. This appears more prominent than on the comparison study of 11/22/2018. May represent migration of one of the prev iously seen renal pelvis calculi in combination with previously seen proximal right ureteral calculus . There is a calculus in the lower portion of the right renal pelvis on today's scan along with lower pole calculi in the right kidney. Mild right hydronephrosis is unchanged. 2. Mild splenomegaly unchanged. 3. Small gallstones at the dependent portion of the gallbladder. Electronically signed by: Buster Isaac MD Board Certified Radiologist 11/23/2018 3:49 PM EST
--- NOTE | 2018-11-23 16:17 | ED ---
HPI General Chief complaint: Abdominal Pain Stated complaint: kidney stones Time Seen by Provider: 11/23/18 13:22 Source: patient Mode of arrival: ambulatory Limitations: no limitations History of Present Illness HPI narrative: Patient is an 88 year old male who comes in complaining of RLQ abdominal pain. He was here yesterday and diagnosed with a kidney stone on the right. He says he was feeling fine until this morning when he started to have severe pain. He tried taking Tylenol without relief of his symptoms. He denies any burning with urination, fever, chills, nausea or vomiting. Severity is moderate. Related Data Home Medications Medication Instructions Recorded Confirmed amlodipine 10 mg PO DAILY 07/29/18 11/23/18 aspirin [Aspirin Low Dose] 81 mg PO DAILY 07/29/18 11/23/18 budesonide-formoterol [Symbicort] 2 puff INHALATION BID 07/29/18 11/23/18 cholecalciferol (vitamin D3) 1,000 unit PO DAILY 07/29/18 11/23/18 [Vitamin D3] dextran 70-hypromellose 1 drp OPHTHALMIC (EYE) Q12H PRN 07/29/18 11/23/18 [Artificial Tears (PF)] insulin glargine [Lantus U-100 10 unit SUBCUT DAILY 07/29/18 11/23/18 Insulin] loratadine 10 mg PO DAILY 07/29/18 11/23/18 lovastatin 10 mg PO DAILY 07/29/18 11/23/18 multivitamin with minerals 1 tab PO DAILY 07/29/18 11/23/18 Previous Rx's Medication Instructions Recorded clonidine HCl [Catapres] 0.1 mg PO Q6H PRN #30 tab 08/08/18 hydralazine 100 mg PO TID 30 Days #180 tab 08/08/18 insulin aspart U-100 1 sliding scale dose SUBCUT UD 30 08/08/18 Days ml phenytoin [Dilantin Infatabs] 150 mg PO BID 30 Days #180 tab 08/08/18 tamsulosin 0.4 mg PO DAILY #30 cap 08/08/18 Allergies Allergy/AdvReac Type Severity Reaction Status Date / Time lisinopril AdvReac Mild Cough Verified 11/23/18 13:17 simvastatin AdvReac Mild muscle Verified 11/23/18 13:17 aches Review of Systems ROS: all other systems reviewed are negative Constitutional Denies chills and Denies fever(s) ENT Denies dizziness Cardiovascular Denies chest pain Respiratory Denies cough and Denies dyspnea Gastrointestinal Reports abdominal pain, Denies nausea and Denies vomiting Genitourinary Denies dysuria Musculoskeletal Denies myalgias and Denies arthralgias Integumentary/Breasts Denies sores and Denies wounds Neurologic Denies focal weakness and Denies numbness [facility] Medical History Medical History CKD (chronic kidney disease) (Acute) Diabetes (Acute) Hyperlipidemia (Acute) Hypertension (Acute) Parotid neoplasm (Acute) Prostate cancer (Acute) Surgical History Surgical History History of parotidectomy (Acute) Family History Family History Sister Diabetes Social History Social History Substance History: No History of Abuse Second Hand Smoke Exposure: No Smoking Status: Former smoker Tobacco Type: Cigarettes How Often Do You Have a Drink Containing Alcohol: Monthly or less Recent Travel in [facility] within the Last 8 Weeks: No Recent Out of Country Travel within the Last 8 Weeks: No Immunization History Tetanus Immunization: <5 Years Exam Narrative Exam Narrative: GENERAL: Awake and alert, in no acute distress. SKIN: Focused skin assessment warm/dry. HEAD: Atraumatic. Normocephalic. EYES: Pupils equal and round. No scleral icterus. No injection or drainage. ENT: Mucous membranes pink and moist. NECK: Trachea midline. No JVD. CARDIOVASCULAR: Regular rate and rhythm. No murmur appreciated. RESPIRATORY: No accessory muscle use. Clear to auscultation. Breath sounds equal bilaterally. GASTROINTESTINAL: Abdomen soft, non-tender, nondistended. Tender to palpation of the RLQ. No rebound or guarding. MUSCULOSKELETAL: No obvious deformities. No clubbing. No cyanosis. No edema. NEUROLOGICAL: Awake and alert. No obvious cranial nerve deficits. Motor grossly within normal limits. Normal speech. PSYCHIATRIC: Appropriate mood and affect; insight and judgment normal. Course Initial Documented Vital Signs Temperature 97.7 F 11/23/18 13:10 Pulse Rate 93 H 11/23/18 13:10 Respiratory Rate 20 11/23/18 13:10 Blood Pressure 164/76 H 11/23/18 13:10 Pulse Oximetry 96 11/23/18 13:10 Last Documented Vital Signs Temperature 97.7 F 11/23/18 13:10 Pulse Rate 90 11/23/18 13:51 Respiratory Rate 18 11/23/18 13:51 Blood Pressure 184/81 H 11/23/18 13:51 Pulse Oximetry 97 11/23/18 13:51 Medical Decision Making MDM Narrative Medical decision making narrative: Patient is an 88 year old male who comes in complaining of RLQ abdominal pain. Exam shows tenderness to palpation. IV established, labs sent. Labs concerning for increasing Cr from 2.5 yesterday to 3.1 today. WBC count is elevated, similar to previous. UA is positive for WBCs and bacteria. CT abd/pelvis performed shows 1cm stone with mild hydronephrosis. Given pain medicine, IVF, Rocephin. I spoke with Dr. Spencer of urology who would like him to be transferred over to the main hospital for a ureteral stent. Patient admitted for further management. Medical Screen Exam Complete: Yes Emergency Medical Condition: Yes Differential Diagnosis Differential Diagnosis: UTI vs renal stone vs pyelonephritis vs appendicitis Medical Records Medical records reviewed: Yes I reviewed the patient's medical records. Lab Data Lab results reviewed: Yes I reviewed the patient's lab results. Result diagrams: 11/23/18 13:40 11/23/18 13:40 Lab Results 11/23/18 11/23/18 11/23/18 Range/Units 13:40 13:40 13:40 CBC w Diff Slide review pending WBC 25.3 H (4.0-11.0) th/mm3 RBC 4.45 L (4.50-5.90) mil/mm3 Hgb 13.7 (13.0-17.0) gm/dL Hct 42.3 (39.0-51.0) % MCV 95.1 (80.0-100.0) fL MCH 30.8 (27.0-34.0) pg MCHC 32.3 (32.0-36.0) % RDW 15.8 (11.6-17.2) % Plt Count 446 (150-450) th/mm3 MPV 9.1 (7.0-11.0) fL Neut % (Auto) 87.1 H (16.0-70.0) % Lymph % (Auto) 5.1 L (9.0-44.0) % Pender % (Auto) 5.4 (0.0-8.0) % Eos % (Auto) 2.1 (0.0-4.0) % Baso % (Auto) 0.3 (0.0-2.0) % Neut # (Auto) 22.0 H (1.8-7.7) th/mm3 Lymph # (Auto) 1.3 (1.0-4.8) th/mm3 Pender # (Auto) 1.4 H (0.0-0.9) th/mm3 Eos # (Auto) 0.5 H (0.0-0.4) th/mm3 Baso # (Auto) 0.1 (0.0-0.2) th/mm3 WBC Differential . Diff Scan Auto diff confirmed Differential Comment . Toxic Granulation 2+ H (None) Platelet Estimate Normal (Normal) Platelet Morphology Normal (Normal) PT 10.5 (9.8-11.6) sec INR 1.0 Ratio APTT 29.9 (23.4-31.7) sec Sodium 135 L (136-145) meq/L Potassium 4.0 (3.5-5.1) meq/L Chloride 103 (98-107) meq/L Carbon Dioxide 23.4 (21.0-32.0) meq/L Anion Gap 9 (5-15) meq/L BUN 35 H (7-18) mg/dL Creatinine 3.10 H (0.60-1.30) mg/dL Estimated GFR 19 L (>89) mL/min Random Glucose 200 H (74-106) mg/dL Lactic Acid (0.4-2.0) mmol/L Calcium 8.8 (8.5-10.1) mg/dL Total Bilirubin 0.9 (0.2-1.0) mg/dL AST 11 L (15-37) U/L ALT 16 (12-78) U/L Alkaline Phosphatase 116 (45-117) U/L Total Protein 6.8 (6.4-8.2) g/dL Albumin 3.3 L (3.4-5.0) g/dL Lipase 56 L (73-393) U/L Ur Collection Type Urine Color (Yellw/Straw) Urine Clarity (Clear) Urine pH (5.0-8.5) Ur Specific Orient (1.002-1.035) Urine Protein (Neg-Trace) mg/dL Urine Glucose (UA) (Negative) mg/dL Urine Ketones (Negative) mg/dL Urine Occult Blood (Negative) Urine Nitrate (Negative) Urine Bilirubin (Negative) Urine Urobilinogen (Less than 2) mg/dL Ur Leukocyte Esterase (Negative) Urine RBC (0-3) /hpf Urine WBC (0-5) /hpf Urine WBC Clumps (None) Urine Bacteria (None) /hpf Micro UA Comment Ur Microscopic Review Urine Culture Comments 11/23/18 11/23/18 Range/Units 13:40 14:52 CBC w Diff WBC (4.0-11.0) th/mm3 RBC (4.50-5.90) mil/mm3 Hgb (13.0-17.0) gm/dL Hct (39.0-51.0) % MCV (80.0-100.0) fL MCH (27.0-34.0) pg MCHC (32.0-36.0) % RDW (11.6-17.2) % Plt Count (150-450) th/mm3 MPV (7.0-11.0) fL Neut % (Auto) (16.0-70.0) % Lymph % (Auto) (9.0-44.0) % Pender % (Auto) (0.0-8.0) % Eos % (Auto) (0.0-4.0) % Baso % (Auto) (0.0-2.0) % Neut # (Auto) (1.8-7.7) th/mm3 Lymph # (Auto) (1.0-4.8) th/mm3 Pender # (Auto) (0.0-0.9) th/mm3 Eos # (Auto) (0.0-0.4) th/mm3 Baso # (Auto) (0.0-0.2) th/mm3 WBC Differential Diff Scan Differential Comment Toxic Granulation (None) Platelet Estimate (Normal) Platelet Morphology (Normal) PT (9.8-11.6) sec INR Ratio APTT (23.4-31.7) sec Sodium (136-145) meq/L Potassium (3.5-5.1) meq/L Chloride (98-107) meq/L Carbon Dioxide (21.0-32.0) meq/L Anion Gap (5-15) meq/L BUN (7-18) mg/dL Creatinine (0.60-1.30) mg/dL Estimated GFR (>89) mL/min Random Glucose (74-106) mg/dL Lactic Acid 0.8 (0.4-2.0) mmol/L Calcium (8.5-10.1) mg/dL Total Bilirubin (0.2-1.0) mg/dL AST (15-37) U/L ALT (12-78) U/L Alkaline Phosphatase (45-117) U/L Total Protein (6.4-8.2) g/dL Albumin (3.4-5.0) g/dL Lipase (73-393) U/L Ur Collection Type Clean catch Urine Color Yellow (Yellw/Straw) Urine Clarity Clear (Clear) Urine pH 6.0 (5.0-8.5) Ur Specific Orient Greater/equal 1.030 (1.002-1.035) Urine Protein 100 H (Neg-Trace) mg/dL Urine Glucose (UA) Negative (Negative) mg/dL Urine Ketones Negative (Negative) mg/dL Urine Occult Blood Moderate H (Negative) Urine Nitrate Negative (Negative) Urine Bilirubin Negative (Negative) Urine Urobilinogen 0.2 (Less than 2) mg/dL Ur Leukocyte Esterase Negative (Negative) Urine RBC 0-3 (0-3) /hpf Urine WBC 0-5 (0-5) /hpf Urine WBC Clumps Rare H (None) Urine Bacteria Occasional H (None) /hpf Micro UA Comment Culture indicated Ur Microscopic Review Microscopic reviewed Urine Culture Comments Culture indicated Imaging Data Radiologist's impression: Abdomen/Pelvis CT 11/23/18 13:30 CONCLUSION: 1. 1.0 x 0.4 cm proximal right ureteral calculus just below the ureteropelvic junction. This appears more prominent than on the comparison study of 2018. May represent migration of one of the previously seen renal pelvis calculi in combination with previously seen proximal right ureteral calculus. There is a calculus in the lower portion of the right renal pelvis on today's scan along with lower pole calculi in the right kidney. Mild right hydronephrosis is unchanged. 2. Mild splenomegaly unchanged. 3. Small gallstones at the dependent portion of the gallbladder. Discharge Plan Discharge Disposition Patient Disposition: ED Admit(ED Internal Use Only) Discharge Condition Condition: Stable Discharge Details Diagnosis: Hydronephrosis with renal calculous obstruction, Leukocytosis, Acute UTI Physicians Team ED Provider: Eula Gallardo Primary Care Provider: Maverick Trimble Rxs /Orders / Referrals /Forms Prescriptions: No Action insulin glargine [Lantus U-100 Insulin] 100 unit/mL Solution 10 unit SUBCUT DAILY RF: 0 lovastatin 10 mg Tablet 10 mg PO DAILY RF: 0 aspirin [Aspirin Low Dose] 81 mg Tablet,Delayed Release (Dr/Ec) 81 mg PO DAILY RF: 0 multivitamin with minerals Tablet Extended Release 1 tab PO DAILY RF: 0 amlodipine 10 mg Tablet 10 mg PO DAILY RF: 0 cholecalciferol (vitamin D3) [Vitamin D3] 1,000 unit Capsule 1,000 unit PO DAILY RF: 0 dextran 70-hypromellose [Artificial Tears (PF)] Dropperette 1 drp OPHTHALMIC (EYE) Q12H PRN (Reason: Dry Eye(S)) RF: 0 budesonide-formoterol [Symbicort] 160-4.5 mcg/actuation Hfa Aerosol Inhaler 2 puff INHALATION BID RF: 0 loratadine 10 mg Capsule 10 mg PO DAILY RF: 0 clonidine HCl [Catapres] 0.1 mg Tablet 0.1 mg PO Q6H PRN (Reason: Sbp>180, Dbp>100) Qty: 30 RF: 0 phenytoin [Dilantin Infatabs] 50 mg Tablet,Chewable 150 mg PO BID 30 Days Qty: 180 RF: 5 tamsulosin 0.4 mg Capsule 0.4 mg PO DAILY Qty: 30 RF: 11 hydralazine 50 mg Tablet 100 mg PO TID 30 Days Qty: 180 RF: 5 insulin aspart U-100 100 unit/mL Cartridge 1 sliding scale dose SUBCUT UD 30 Days RF: 11 Discharge Interventions Interventions: Vital Signs Last Done: 11/23/18 13:51 Status ED Status: With Doctor
[2018-11-23] MEDS ORDERED: Acetaminophen 325 MG Tablet PO PRN (16:44)
[2018-11-23] MEDS ORDERED: Bisacodyl 10 MG Supp RECTAL PRN (16:44)
[2018-11-23] MEDS ORDERED: Dextrose 50% in Water 50 ML Vial IV.PUSH PRN (16:51)
--- NOTE | 2018-11-23 16:54 | XR ---
EXAM DATE: 11/23/2018 4:51 PM EST AGE/SEX: 88 years / Male INDICATIONS: Right flank pain, kidney stones CLINICAL DATA: This is the patient's initial encounter. Patient reports that signs and symptoms have been present for 3 days and indicates a pain score of 0/10. MEDICAL/SURGICAL HISTORY: Chronic obstructive pulmonary disease. None. COMPARISON: [facility], CHEST 1V SINGLE AP, 07/31/2018. [facility], CHEST SINGLE AP, 12/05/2013. . FINDINGS: A single AP view of the chest demonstrates the lungs to be symmetrically aerated without evidence of mass, infiltrate or effusion. Stable thin linear scarring in the lateral left midlung. The cardiomedi astinal contours are unremarkable. The heart is upper limits normal for AP technique. Osseous structu res are intact. CONCLUSION: The lungs are clear. Electronically signed by: Marlon Chen MD Board Certified Radiologist 11/23/2018 4:53 PM EST
[2018-11-23] MEDS: Sod Chloride 0.9% Inj 1,000 ML IV.CONT SCH (17:15)
[2018-11-23] MEDS: Insulin NovoLOG Aspart Correctional Sugar Inj SQ SCH ×2 (17:26→20:56)
[2018-11-23] MEDS ORDERED: Metoprolol Tartrate 25 MG Tablet PO ONE (20:30)
[2018-11-23] MEDS ORDERED: Sodium Chlor 0.9% Inj 500 ML IV.CONT ONE (20:30)
[2018-11-23] MEDS ORDERED: Chlorhexidine Gluconate 2% 1 Pack (2 Cloths) TOPICAL ONE (20:30)
--- NOTE | 2018-11-23 20:45 | ECG ---
Date Performed: 11/23/2018 Time Performed: 16:33:49 PTAGE: 88 years EKG: Sinus rhythm WITH FIRST DEGREE AV BLOCK WITH OCCASIONAL ECTOPIC PREMATURE COMPLEXES INFERIOR MYOCARDIAL INFARCTIO N ABNORMAL ECG PREVIOUS TRACING : 12/05/2013 18.10 Since the previous tracing, no significant change noted DOCTOR: Karly Briceno Interpretating Date/Time 11/23/2018 20:44:13
[2018-11-23] MEDS: Morphine Sulfate Inj 2 MG/ML Vial IV.PUSH PRN (20:57)
[2018-11-23] MEDS: hydrALAZINE 50 MG Tablet PO SCH (20:58)
[2018-11-23] MEDS: Phenytoin 50 MG Chewable Tablet PO SCH (20:59)
[2018-11-23] MEDS: Budesonide-Formoterol 160/4.5 MCG 6 GM Inhaler INH SCH (20:59)
--- NOTE | 2018-11-23 21:25 | P.CONURO ---
History of Present Illness Service: Med Consult date: 11/23/18 Requesting Physician: Eula Gallardo Reason for Consult: RT renal colic, obstructing stone Primary Care Provider: Maverick Trimble DO Chief Complaint: Pain, RT LQ History of Present Illness: RLQ severe pain, onset today. No nausea or vomiting. One asymptomatic stone removed coincidentally in Aug 2018 at time of possible TURP by Dr. Mott. Patient not aware that he has other stones. CT scan: 3 stones RT side:10 mm obstructing proximal ureter, one in renal pelvis , one lying in kidney. Mild hydronephrosis. LFT: no stones, no hydro, kidney looks WNL. Also has CKD, CR=2.5, now 3.1. and Diabetes., COPD. Hx prostate cancer Rx with brachytherapy with apparent cure or control. He has a slow urine flow for ? reason. Discussed placement of a urinary stent to relieve the pain and drain the kidney in the OR. Patient understands and agrees. and nurse both present for the discussion. Will schedule for tomorrow late AM. post hosp. DC: F/U with his Urologist: Dr. Mott. PMFSH - History History Provided By: Patient, Family Member (), Medical Record - Medical History Medical History: Medical History (Last Reviewed 11/23/18 @ 16:19 by Eula Gallardo MD) CKD (chronic kidney disease) Diabetes Hyperlipidemia Hypertension Parotid neoplasm Prostate cancer - Surgical History Surgical History: Surgical History (Last Reviewed 11/23/18 @ 16:19 by Eula Gallardo MD) History of parotidectomy - Family History Family History: Family History (Last Reviewed 11/23/18 @ 16:19 by Eula Gallardo MD) Sister Diabetes - Social History I have reviewed the patient's Social History: Yes - Tobacco History Second Hand Smoke Exposure: No Smoking Status: Former smoker Tobacco Type: Cigarettes - Alcohol History How Often Do You Have a Drink Containing Alcohol: Monthly or less - Substance Use History Substance History: No History of Abuse - Travel History Recent Travel in the [place] Within the Last 8 Weeks: No Recent Travel Out of the Country Within the Last 8 Weeks: No - Immunization History Tetanus Immunization: <5 Years Medications and Allergies Active Medications: Active Medications Acetaminophen (Tylenol) 650 mg PO Q4H PRN PRN Reason: Temp > 100.4 Al Hydroxide/Mg Hydroxide (Milk Of Magnesia Liq) 30 ml PO Q12H PRN PRN Reason: Mild Constipation Amlodipine Besylate (Norvasc) 10 mg PO DAILY [facility] Bisacodyl (Dulcolax Supp) 10 mg RECTAL DAILY PRN PRN Reason: SEVERE CONSITIPATION Budesonide/Formoterol Fumarate (Symbicort 160/4.5 Mcg Inh) 2 puff INH BID [facility] Last Admin: 11/23/18 20:59 Dose: Not Given Dextrose (D50w Vial) 50 ml IV.PUSH UNSCH PRN PRN Reason: PER HYPOGLYCEMIA PROTOCOL Glucagon (Glucagon Inj) 1 mg OTHER PRN PRN PRN Reason: for Hypoglycemia Protocol Hydralazine HCl (Apresoline) 100 mg PO TID [facility] Last Admin: 11/23/18 20:58 Dose: Not Given Sodium Chloride (Ns Inj) 1,000 mls @ 84 mls/hr IV.CONT .[id number] [facility] Last Infusion: 11/23/18 18:06 Dose: 0 mls/hr Ceftriaxone Sodium 1,000 mg/ (Sodium Chloride) 100 mls @ 200 mls/hr IV.SIG Q24H [facility] Sodium Chloride (Ns Inj) 500 mls @ 30 mls/hr IV.CONT .[id number] ONE Stop: 11/24/18 13:09 Last Admin: 11/23/18 20:58 Dose: Not Given Insulin Aspart (Novolog Insulin Correctional Sugar Inj) 0 unit SQ ACHS [facility]; Protocol Last Admin: 11/23/18 20:56 Dose: Not Given Lactulose (Lactulose Liq) 30 ml PO DAILY PRN PRN Reason: SEVERE CONSITIPATION Morphine Sulfate (Morphine Inj) 2 mg IV.PUSH Q3H PRN PRN Reason: pain > 3 Last Admin: 11/23/18 20:57 Dose: 2 mg Ondansetron HCl (Zofran Inj) 4 mg IV.PUSH Q6H PRN PRN Reason: NAUSEA OR VOMITING Phenytoin (Dilantin Infatabs Chewable) 150 mg PO BID [facility] Last Admin: 11/23/18 20:59 Dose: Not Given Pravastatin Sodium (Pravachol) 10 mg PO DAILY [facility] Sennosides (Senokot) 17.2 mg PO Q12H PRN PRN Reason: Moderate Constipation Sodium Chloride (Ns Flush) 2 ml IV.FLUSH PRN PRN PRN Reason: FLUSH AFTER USING IV ACCESS Last Admin: 11/23/18 14:27 Dose: 2 ml Sodium Chloride (Ns Flush) 2 ml IV.FLUSH BID [facility] Last Admin: 11/23/18 20:56 Dose: Not Given Sodium Chloride (Ns Flush) 2 ml IV.FLUSH PRN PRN PRN Reason: FLUSH AFTER USING IV ACCESS Tamsulosin HCl (Flomax) 0.4 mg PO DAILY [facility] Allergies Allergy/AdvReac Type Severity Reaction Status Date / Time lisinopril AdvReac Mild Cough Verified 11/23/18 13:17 simvastatin AdvReac Mild muscle Verified 11/23/18 13:17 aches Home Medications Medication Instructions Recorded Confirmed Type amlodipine 10 mg PO DAILY 07/29/18 11/23/18 History aspirin [Aspirin Low Dose] 81 mg PO DAILY 07/29/18 11/23/18 History budesonide-formoterol [Symbicort] 2 puff INHALATION BID 07/29/18 11/23/18 History cholecalciferol (vitamin D3) 1,000 unit PO DAILY 07/29/18 11/23/18 History [Vitamin D3] dextran 70-hypromellose 1 drp OPHTHALMIC (EYE) Q12H PRN 07/29/18 11/23/18 History [Artificial Tears (PF)] insulin glargine [Lantus U-100 10 unit SUBCUT DAILY 07/29/18 11/23/18 History Insulin] loratadine 10 mg PO DAILY 07/29/18 11/23/18 History lovastatin 10 mg PO DAILY 07/29/18 11/23/18 History multivitamin with minerals 1 tab PO DAILY 07/29/18 11/23/18 History Physical Exam Vital Signs - 24 hr 11/23/18 13:10 11/23/18 13:51 11/23/18 18:07 Temperature 97.7 F Pulse Rate 93 H 90 81 Respiratory Rate 20 18 20 Blood Pressure 164/76 H 184/81 H 156/77 H Pulse Oximetry 96 97 95 Physical Exam: GENERAL: This is a well-nourished, well-developed patient, in no apparent distress after analgesic RX.. SKIN: No rashes, ecchymoses or lesions. Cool and dry. HEAD: Atraumatic. Normocephalic. No temporal or scalp tenderness. EYES: Pupils equal round and reactive. Extraocular motions intact. No scleral icterus. No injection or drainage. ENT: Nose without bleeding, purulent drainage or septal hematoma. Throat without erythema, tonsillar hypertrophy or exudate. Uvula midline. Airway patent. NECK: Trachea midline. No JVD or lymphadenopathy. Supple, nontender, no meningeal signs. CARDIOVASCULAR: RESPIRATORY: GASTROINTESTINAL: Abdomen soft, mild direct tenderness RLQ, nondistended. No hepato-splenomegaly, or palpable masses. No guarding. GENITOURINARY: EXT. GENITALIA: WNL. Uncircumcised. Testes WNL. PROSTATE: Not examined. MUSCULOSKELETAL: Extremities without clubbing, cyanosis, or edema. No joint tenderness, effusion, or edema noted. NEUROLOGICAL: Awake and alert. Cranial nerves II through XII intact. Motor and sensory grossly within normal limits. Normal speech. Lab results reviewed: Yes Laboratory Results - last 24 hr 11/23/18 11/23/18 11/23/18 13:40 13:40 13:40 CBC w Diff Slide review pending WBC 25.3 H RBC 4.45 L Hgb 13.7 Hct 42.3 MCV 95.1 MCH 30.8 MCHC 32.3 RDW 15.8 Plt Count 446 MPV 9.1 Neut % (Auto) 87.1 H Lymph % (Auto) 5.1 L Butts % (Auto) 5.4 Eos % (Auto) 2.1 Baso % (Auto) 0.3 Neut # (Auto) 22.0 H Lymph # (Auto) 1.3 Butts # (Auto) 1.4 H Eos # (Auto) 0.5 H Baso # (Auto) 0.1 WBC Differential . Diff Scan Auto diff confirmed Differential Comment . Toxic Granulation 2+ H Platelet Estimate Normal Platelet Morphology Normal PT 10.5 INR 1.0 APTT 29.9 Sodium 135 L Potassium 4.0 Chloride 103 Carbon Dioxide 23.4 Anion Gap 9 BUN 35 H Creatinine 3.10 H Estimated GFR 19 L POC Glucose Random Glucose 200 H Lactic Acid Calcium 8.8 Total Bilirubin 0.9 AST 11 L ALT 16 Alkaline Phosphatase 116 Total Protein 6.8 Albumin 3.3 L Lipase 56 L Ur Collection Type Urine Color Urine Clarity Urine pH Ur Specific [place] Urine Protein Urine Glucose (UA) Urine Ketones Urine Occult Blood Urine Nitrate Urine Bilirubin Urine Urobilinogen Ur Leukocyte Esterase Urine RBC Urine WBC Urine WBC Clumps Urine Bacteria Micro UA Comment Ur Microscopic Review Urine Culture Comments 11/23/18 11/23/18 11/23/18 13:40 14:52 17:23 CBC w Diff WBC RBC Hgb Hct MCV MCH MCHC RDW Plt Count MPV Neut % (Auto) Lymph % (Auto) Butts % (Auto) Eos % (Auto) Baso % (Auto) Neut # (Auto) Lymph # (Auto) Butts # (Auto) Eos # (Auto) Baso # (Auto) WBC Differential Diff Scan Differential Comment Toxic Granulation Platelet Estimate Platelet Morphology PT INR APTT Sodium Potassium Chloride Carbon Dioxide Anion Gap BUN Creatinine Estimated GFR POC Glucose 144 Random Glucose Lactic Acid 0.8 Calcium Total Bilirubin AST ALT Alkaline Phosphatase Total Protein Albumin Lipase Ur Collection Type Clean catch Urine Color Yellow Urine Clarity Clear Urine pH 6.0 Ur Specific [place] Greater/equal 1.030 Urine Protein 100 H Urine Glucose (UA) Negative Urine Ketones Negative Urine Occult Blood Moderate H Urine Nitrate Negative Urine Bilirubin Negative Urine Urobilinogen 0.2 Ur Leukocyte Esterase Negative Urine RBC 0-3 Urine WBC 0-5 Urine WBC Clumps Rare H Urine Bacteria Occasional H Micro UA Comment Culture indicated Ur Microscopic Review Microscopic reviewed Urine Culture Comments Culture indicated Result Diagrams: 11/23/18 13:40 11/23/18 13:40 Personally reviewed images: Yes Imaging: ITS Impressions Abdomen/Pelvis CT 11/23/18 13:30 CONCLUSION: 1. 1.0 x 0.4 cm proximal right ureteral calculus just below the ureteropelvic junction. This appears more prominent than on the comparison study of 2018. May represent migration of one of the previously seen renal pelvis calculi in combination with previously seen proximal right ureteral calculus. There is a calculus in the lower portion of the right renal pelvis on today's scan along with lower pole calculi in the right kidney. Mild right hydronephrosis is unchanged. 2. Mild splenomegaly unchanged. 3. Small gallstones at the dependent portion of the gallbladder. Chest X-Ray 11/23/18 16:11 CONCLUSION: The lungs are clear. Assessment and Plan - Assessment (1) Renal colic on right side Code(s): N23 - Unspecified renal colic Status: Acute Onset Date: ~11/23/18 (2) Hydronephrosis with renal calculous obstruction Code(s): N13.2 - Hydronephrosis with renal and ureteral calculous obstruction Status: Acute Onset Date: ~11/23/18 (3) Calculus, ureteral Code(s): N20.1 - Calculus of ureter Status: Acute Onset Date: ~11/23/18 - Plan To OR for placement of urinary stent into RT ureter and kidney. Will do tomorrow late AM. Discussed Condition With: Patient, , nurse, Dr. Gallardo. Discharge Planning: DC after stent placed if medically stable. F/U with his Urologist: Dr. Mott.
--- NOTE | 2018-11-23 22:32 | P.HPIM ---
History of Present Illness Primary Care Physician: Maverick Trimble DO Mr. Solares is a very pleasant 88 y/o male with a history of hypertension, diabetes mellitus, chronic kidney disease, hyperlipidemia, parotid neoplasm s/p resection, and prostate cancer tx with radioactive seeds who presented to the ER in [place] on 11/23/18 complaining of right lower quadrant pain. He had also been seen on 11/22/18 for the same pain but improved in ED after IV morphine given and decided to go home. Upon return to ED, CT of abd/pelvis was done and he was again found to have right ureteral calculus but it appeared more prominent than on comparison study of 11/22/2018. Mild right hydronephrosis was again noted and he was admitted for obstructive uropathy. The patient is seen in his hospital room. He reports having severe right-sided flank pain that is sharp and relieved with as needed IV morphine. He denies any recent fever, chills, shortness of breath, chest pain, nausea, or vomiting. He reports constipation yesterday followed by diarrhea with neither problem being experienced today. Reports chronic LE edema. Diagnosis (1) Renal colic on right side: (2) Hydronephrosis with renal calculous obstruction: (3) Calculus, ureteral: Inpatient Certification Inpatient Certification: I certify that the inpatient services were ordered in accordance with Medicare regulations governing the order. This includes certification that hospital inpatient services are reasonable and necessary and in the case of services not specified as inpatient-only under 42 CFR 419.22(n), that they are appropriately provided as inpatient services in accordance to with the 2-midnight benchmark under 43 CFR 412.3(e) Estimated Total Length of Stay (Days): 3 Plans for Post Hospital Care: Not yet determined Review of Systems Review of Systems: all other systems reviewed are negative [facility] Medical History Medical History CKD (chronic kidney disease) (Acute) Diabetes (Acute) Hyperlipidemia (Acute) Hypertension (Acute) Parotid neoplasm (Acute) Prostate cancer (Acute) Surgical History Surgical History History of appendectomy (Acute) History of parotidectomy (Acute) Family History Family History Sister Diabetes Social History Social History Substance History: No History of Abuse Second Hand Smoke Exposure: No Smoking Status: Former smoker Tobacco Type: Cigarettes How Often Do You Have a Drink Containing Alcohol: Monthly or less Recent Travel in [facility] within the Last 8 Weeks: No Recent Out of Country Travel within the Last 8 Weeks: No Immunization History Tetanus Immunization: <5 Years Medications and Allergies Allergies Allergy/AdvReac Type Severity Reaction Status Date / Time lisinopril AdvReac Mild Cough Verified 11/23/18 13:17 simvastatin AdvReac Mild muscle Verified 11/23/18 13:17 aches Home Medications Medication Instructions Recorded Confirmed Type amlodipine 10 mg PO DAILY 07/29/18 11/23/18 History aspirin [Aspirin Low Dose] 81 mg PO DAILY 07/29/18 11/23/18 History budesonide-formoterol [Symbicort] 2 puff INHALATION BID 07/29/18 11/23/18 History cholecalciferol (vitamin D3) 1,000 unit PO DAILY 07/29/18 11/23/18 History [Vitamin D3] dextran 70-hypromellose 1 drp OPHTHALMIC (EYE) Q12H PRN 07/29/18 11/23/18 History [Artificial Tears (PF)] insulin glargine [Lantus U-100 10 unit SUBCUT DAILY 07/29/18 11/23/18 History Insulin] loratadine 10 mg PO DAILY 07/29/18 11/23/18 History lovastatin 10 mg PO DAILY 07/29/18 11/23/18 History multivitamin with minerals 1 tab PO DAILY 07/29/18 11/23/18 History Active Medications: Active Medications Acetaminophen (Tylenol) 650 mg PO Q4H PRN PRN Reason: Temp > 100.4 Al Hydroxide/Mg Hydroxide (Milk Of Magnesia Liq) 30 ml PO Q12H PRN PRN Reason: Mild Constipation Amlodipine Besylate (Norvasc) 10 mg PO DAILY [facility] Bisacodyl (Dulcolax Supp) 10 mg RECTAL DAILY PRN PRN Reason: SEVERE CONSITIPATION Budesonide/Formoterol Fumarate (Symbicort 160/4.5 Mcg Inh) 2 puff INH BID [facility] Last Admin: 11/23/18 20:59 Dose: Not Given Dextrose (D50w Vial) 50 ml IV.PUSH UNSCH PRN PRN Reason: PER HYPOGLYCEMIA PROTOCOL Glucagon (Glucagon Inj) 1 mg OTHER PRN PRN PRN Reason: for Hypoglycemia Protocol Hydralazine HCl (Apresoline) 100 mg PO TID [facility] Last Admin: 11/23/18 20:58 Dose: Not Given Sodium Chloride (Ns Inj) 1,000 mls @ 84 mls/hr IV.CONT .[id number] [facility] Last Infusion: 11/23/18 18:06 Dose: 0 mls/hr Ceftriaxone Sodium 1,000 mg/ (Sodium Chloride) 100 mls @ 200 mls/hr IV.SIG Q24H [facility] Sodium Chloride (Ns Inj) 500 mls @ 30 mls/hr IV.CONT .[id number] ONE Stop: 11/24/18 13:09 Last Admin: 11/23/18 20:58 Dose: Not Given Insulin Aspart (Novolog Insulin Correctional Sugar Inj) 0 unit SQ ACHS [facility]; Protocol Last Admin: 11/23/18 20:56 Dose: Not Given Lactulose (Lactulose Liq) 30 ml PO DAILY PRN PRN Reason: SEVERE CONSITIPATION Morphine Sulfate (Morphine Inj) 2 mg IV.PUSH Q3H PRN PRN Reason: pain > 3 Last Admin: 11/23/18 20:57 Dose: 2 mg Ondansetron HCl (Zofran Inj) 4 mg IV.PUSH Q6H PRN PRN Reason: NAUSEA OR VOMITING Phenytoin (Dilantin Infatabs Chewable) 150 mg PO BID [facility] Last Admin: 11/23/18 20:59 Dose: Not Given Pravastatin Sodium (Pravachol) 10 mg PO DAILY [facility] Sennosides (Senokot) 17.2 mg PO Q12H PRN PRN Reason: Moderate Constipation Sodium Chloride (Ns Flush) 2 ml IV.FLUSH PRN PRN PRN Reason: FLUSH AFTER USING IV ACCESS Last Admin: 11/23/18 14:27 Dose: 2 ml Sodium Chloride (Ns Flush) 2 ml IV.FLUSH BID [facility] Last Admin: 11/23/18 20:56 Dose: Not Given Sodium Chloride (Ns Flush) 2 ml IV.FLUSH PRN PRN PRN Reason: FLUSH AFTER USING IV ACCESS Tamsulosin HCl (Flomax) 0.4 mg PO DAILY [facility] Physical Exam Vital signs: Vital Signs 11/23/18 13:10 11/23/18 13:51 11/23/18 18:07 Temperature 97.7 F Pulse Rate 93 H 90 81 Respiratory Rate 20 18 20 Blood Pressure 164/76 H 184/81 H 156/77 H Pulse Oximetry 96 97 95 11/23/18 20:00 Temperature 98.4 F Pulse Rate 89 Respiratory Rate 18 Blood Pressure 179/99 H Pulse Oximetry 92 L Intake & Output 11/23/18 11/23/18 11/24/18 06:59 18:59 06:59 Intake Total 684 / 684 Output Total 150 / 150 Balance 534 / 534 Weight 83 kg Intake: IV 684 / 684 NS Inj 1,000 ML @ 84 mls/hr IV. 84 / 84 CONT .[id number] [facility] Rx#: [id number] NS Inj 500 ML @ 1000 mls/hr IV. 500 / 500 SIG BOLUS [facility] Rx#:[id number] Rocephin Inj 1,000 MG In NS Inj 100 / 100 100 ML @ 200 mls/hr IV.SIG ONCE ONE Rx#:[id number] Output: Urine 150 / 150 Narrative: GENERAL: This is a very pleasant elderly male patient, in no apparent distress. SKIN: No rashes. Cool and dry. HEAD: Atraumatic. Normocephalic. EYES: No scleral icterus. No injection or drainage. ENT: Nose without bleeding, purulent drainage. Slightly hard of hearing. NECK: Trachea midline. No JVD. CARDIOVASCULAR: Regular rate and rhythm without murmurs, gallops, or rubs. 2+ pitting edema bilateral LE mid olvera down to feet. RESPIRATORY: Clear to auscultation. Breath sounds equal bilaterally. No wheezes , rales, or rhonchi. GASTROINTESTINAL: Abdomen soft, non-tender, nondistended. No guarding. GENITOURINARY: Right flank and CVA tenderness. MUSCULOSKELETAL: Extremities without clubbing, cyanosis. No calf tenderness. NEUROLOGICAL: Awake and alert. Motor and sensory grossly within normal limits. Normal speech. . Results Labs CBC & Chem 7: 11/24/18 05:45 11/24/18 05:45 Imaging Impressions Abdomen/Pelvis CT 11/23/18 13:30 CONCLUSION: 1. 1.0 x 0.4 cm proximal right ureteral calculus just below the ureteropelvic junction. This appears more prominent than on the comparison study of 2018. May represent migration of one of the previously seen renal pelvis calculi in combination with previously seen proximal right ureteral calculus. There is a calculus in the lower portion of the right renal pelvis on today's scan along with lower pole calculi in the right kidney. Mild right hydronephrosis is unchanged. 2. Mild splenomegaly unchanged. 3. Small gallstones at the dependent portion of the gallbladder. Chest X-Ray 11/23/18 16:11 CONCLUSION: The lungs are clear. Caprini VTE Risk Assessment Caprini VTE Risk Assessment: Moderate/High Risk (score >= 2) Caprini Risk Assessment Model: Point Value = 1 Point Value = 2 Point Value = 3 Point Value = 5 Age 41-60 Minor surgery BMI > 25 kg/m2 Swollen legs Varicose veins or History of unexplained or recurrent spontaneous Oral contraceptives or hormone replacement Sepsis (< 1 month) Serious lung disease, including pneumonia (< 1 month) Abnormal pulmonary function Acute myocardial infarction Congestive heart failure (< 1 month) History of inflammatory bowel disease Medical patient at bed rest Age 61-74 Arthroscopic surgery Major open surgery (> 45 min) Laparoscopic surgery (> 45 min) Malignancy Confined to bed (> 72 hours) Immobilizing plaster cast Central venous access Age >= 75 History of VTE Family history of VTE Factor V Leiden Prothrombin [id number] Lupus anticoagulant Anticardiolipin antibodies Elevated serum homocysteine Heparin-induced thrombocytopenia Other congenital or acquired thrombophilia Stroke (< 1 month) Elective arthroplasty Hip, pelvis, or leg fracture Acute spinal cord injury (< 1 month) Prophylaxis Regimen: Total Risk Factor Score Risk Level Prophylaxis Regimen 0-1 Low Early ambulation 2 Moderate Order ONE of the following: *Sequential Compression Device (SCD) *Heparin 5000 units SQ BID 3-4 Higher Order ONE of the following medications: *Heparin 5000 units SQ TID *Enoxaparin/Lovenox 40 mg SQ daily (WT < 150 kg, CrCl > 30 mL/min) *Enoxaparin/Lovenox 30 mg SQ daily (WT < 150 kg, CrCl > 10-29 mL/min) *Enoxaparin/Lovenox 30 mg SQ BID (WT < 150 kg, CrCl > 30 mL/min) AND/OR *Sequential Compression Device (SCD) 5 or more Highest Order ONE of the following medications: *Heparin 5000 units SQ TID (Preferred with Epidurals) *Enoxaparin/Lovenox 40 mg SQ daily (WT < 150 kg, CrCl > 30 mL/min) *Enoxaparin/Lovenox 30 mg SQ daily (WT < 150 kg, CrCl > 10-29 mL/min) *Enoxaparin/Lovenox 30 mg SQ BID (WT < 150 kg, CrCl > 30 mL/min) AND *Sequential Compression Device (SCD) Assessment and Plan (1) Renal colic on right side: Code(s): N23 - Unspecified renal colic Status: Acute Onset Date: ~11/23/18 (2) Hydronephrosis with renal calculous obstruction: Code(s): N13.2 - Hydronephrosis with renal and ureteral calculous obstruction Status: Acute Onset Date: ~11/23/18 (3) Calculus, ureteral: Code(s): N20.1 - Calculus of ureter Status: Acute Onset Date: ~11/23/18 Plan Mr. Solares is a very pleasant 88 y/o male with a history of hypertension, diabetes mellitus, chronic kidney disease, hyperlipidemia, parotid neoplasm s/p resection, and prostate cancer tx with radioactive seeds who presented to the ER in [place] on 11/23/18 complaining of right lower quadrant pain. CT of abd/pelvis showed right ureteral calculus appearing more prominent than on comparison study of 11/22/2018. Mild right hydronephrosis was again noted and he was admitted for obstructive uropathy. Obstructive Uropathy -consult to urology - plan for urinary stent placement late tomorrow morning - appreciate Dr. Ly's assistance -NPO except medications -Morphine 2 mg IV q3h PRN pain UTI -UA consistent with UTI; lactic acid normal at 0.8, WBC chronically elevated and is 25.3 on admission which appears stable -Antibiotic: Ceftriaxone 1 g IV every 24 hours -Await urine cultures and follow results Acute on chronic renal failure -BUN 35, creatinine 3.10, estimated GFR 19 -slightly worse when compared to yesterday's labs -Gentle IV fluid hydration with normal saline at 42 cc/h -cautiously hydrate as patient has chronic lower extremity edema noted on exam today -Avoid nephrotoxins -Monitor renal function Hypertension -Resume home medications and monitor blood pressure and adjust treatments if indicated Diabetes Mellitus -Hold home Lantus while n.p.o. -Accu-Cheks before meals and at bedtime with low-dose NovoLog sliding scale coverage -Hypoglycemia protocol -Monitor trends and blood glucose readings and adjust treatments as indicated DVT prophylaxis -SCDs - for stent placement in a.m.
[2018-11-24] MEDS: Sod Chloride 0.9% Inj 1,000 ML IV.CONT SCH (03:43)
[2018-11-24 07:04] LABS: Baso # (Auto) 0.1 th/mm3 (0.0-0.2); Baso % (Auto) 0.5 % (0.0-2.0); Eos # (Auto) 0.6 th/mm3 (0.0-0.4); Hematocrit 34.3 % (39.0-51.0); Hemoglobin 11.6 gm/dL (13.0-17.0); Lymph # (Auto) 1.5 th/mm3 (1.0-4.8); Lymph % (Auto) 7.9 % (9.0-44.0); Mean Corpuscular HGB Conc 33.7 % (32.0-36.0); Mean Corpuscular Hemoglobin 32.3 pg (27.0-34.0); Mean Corpuscular Volume 95.7 fL (80.0-100.0); Mean Platelet Volume 9.1 fL (7.0-11.0); Mono # (Auto) 1.5 th/mm3 (0.0-0.9); Mono % (Auto) 7.8 % (0.0-8.0); Neut # (Auto) 15.4 th/mm3 (1.8-7.7); Neut % (Auto) 80.8 % (16.0-70.0); Platelet Count 329 th/mm3 (150-450); Red Blood Count 3.58 mil/mm3 (4.50-5.90); White Blood Count 19.1 th/mm3 (4.0-11.0)
[2018-11-24 07:27] LABS: Albumin 2.7 g/dL (3.4-5.0); Anion Gap 11 meq/L (5-15); Aspartate Aminotransferase 8 U/L (15-37); Blood Urea Nitrogen 36 mg/dL (7-18); Carbon Dioxide 22.4 meq/L (21.0-32.0); Chloride 106 meq/L (98-107); Glomerular Filtration Rate 19 mL/min (>89); Glucose,Random 57 mg/dL (74-106); Potassium 4.1 meq/L (3.5-5.1); Sodium 139 meq/L (136-145)
[2018-11-24 07:28] LABS: Alanine Aminotransferase 12 U/L (12-78)
[2018-11-24 07:30] LABS: Alkaline Phosphatase 210 U/L (45-117); Total Protein 5.8 g/dL (6.4-8.2)
[2018-11-24] MEDS: Morphine Sulfate Inj 2 MG/ML Vial IV.PUSH PRN ×4 (07:46→15:10)
[2018-11-24] MEDS: Phenytoin 50 MG Chewable Tablet PO SCH ×2 (08:05→20:38)
[2018-11-24] MEDS: hydrALAZINE 50 MG Tablet PO SCH ×2 (08:06→15:11)
[2018-11-24] MEDS: amLODIPine 10 MG Tablet PO SCH (08:06)
[2018-11-24] MEDS: Budesonide-Formoterol 160/4.5 MCG 6 GM Inhaler INH SCH ×2 (08:07→20:38)
[2018-11-24] MEDS ORDERED: Non-Formulary Drug (Lovastatin [Lovastatin] 10 MG) PO SCH (09:00)
[2018-11-24] MEDS: Insulin NovoLOG Aspart Correctional Sugar Inj SQ SCH ×4 (10:38→20:47)
[2018-11-24] MEDS: Dextrose 5% in Water Inj 1,000 ML IV.CONT SCH (10:39)
--- NOTE | 2018-11-24 10:43 | P.PNIM ---
Subjective Interval history: Follow-up for obstructive uropathy, acute on chronic kidney injury, UTI: Patient n.p.o., going for stent placement today. Denies any right flank pain, voiding small amounts. No abdominal pain, no nausea, no vomiting. No fever. No chest pain, no shortness of breath. Physical Exam Vital signs: Vital Signs 11/23/18 13:10 11/23/18 13:51 11/23/18 18:07 Temperature 97.7 F Pulse Rate 93 H 90 81 Respiratory Rate 20 18 20 Blood Pressure 164/76 H 184/81 H 156/77 H Pulse Oximetry 96 97 95 11/23/18 20:00 11/24/18 00:00 11/24/18 04:00 Temperature 98.4 F 99.4 F 99.7 F H Pulse Rate 89 83 78 Respiratory Rate 18 17 18 Blood Pressure 179/99 H 154/66 H 149/68 H Pulse Oximetry 92 L 92 L 90 L 11/24/18 08:00 Temperature 99.5 F Pulse Rate 70 Respiratory Rate 17 Blood Pressure 151/67 H Pulse Oximetry 91 L Intake & Output 11/23/18 11/24/18 11/24/18 18:59 06:59 18:59 Intake Total 684 / 684 0 / 0 Output Total 150 / 150 400 / 400 Balance 534 / 534 -400 / -400 Weight 83 kg 84.6 kg Intake: IV 684 / 684 NS Inj 1,000 ML @ 84 mls/hr IV. 84 / 84 CONT .[id number] [facility] Rx#: [id number] NS Inj 500 ML @ 1000 mls/hr IV. 500 / 500 SIG BOLUS [facility] Rx#:[id number] Rocephin Inj 1,000 MG In NS Inj 100 / 100 100 ML @ 200 mls/hr IV.SIG ONCE ONE Rx#:[id number] Oral 0 / 0 Output: Urine 150 / 150 400 / 400 Other: # Bowel Movements 0 Narrative: GENERAL: 88-year-old well-developed well-nourished elderly male, no apparent distress SKIN: No rashes. Cool and dry. HEAD: Atraumatic. Normocephalic. EYES: No scleral icterus. No injection or drainage. ENT: Nose without bleeding, purulent drainage. Slightly hard of hearing. NECK: Trachea midline. No JVD. CARDIOVASCULAR: Regular rate and rhythm without murmurs, gallops, or rubs. 1+ pitting edema bilateral LE mid olvera down to feet. Pedal pulses 2+ bilateral RESPIRATORY: Clear to auscultation. Breath sounds equal bilaterally. No wheezes , rales, or rhonchi. GASTROINTESTINAL: Abdomen soft, non-tender, nondistended. No guarding. GENITOURINARY: No CVA tenderness MUSCULOSKELETAL: Extremities without clubbing, cyanosis. No calf tenderness. NEUROLOGICAL: Awake and alert. Motor and sensory grossly within normal limits. Normal speech. Slightly hard of hearing . Results Labs CBC & Chem 7: 11/24/18 05:45 11/24/18 05:45 Imaging Imaging: Impressions Abdomen/Pelvis CT 11/23/18 13:30 CONCLUSION: 1. 1.0 x 0.4 cm proximal right ureteral calculus just below the ureteropelvic junction. This appears more prominent than on the comparison study of 2018. May represent migration of one of the previously seen renal pelvis calculi in combination with previously seen proximal right ureteral calculus. There is a calculus in the lower portion of the right renal pelvis on today's scan along with lower pole calculi in the right kidney. Mild right hydronephrosis is unchanged. 2. Mild splenomegaly unchanged. 3. Small gallstones at the dependent portion of the gallbladder. Chest X-Ray 11/23/18 16:11 CONCLUSION: The lungs are clear. Assessment and Plan (1) Renal colic on right side: Code(s): N23 - Unspecified renal colic Status: Acute Onset Date: ~11/23/18 (2) Hydronephrosis with renal calculous obstruction: Code(s): N13.2 - Hydronephrosis with renal and ureteral calculous obstruction Status: Acute Onset Date: ~11/23/18 (3) Calculus, ureteral: Code(s): N20.1 - Calculus of ureter Status: Acute Onset Date: ~11/23/18 Plan Mr. Solares is a very pleasant 88 y/o male with a history of hypertension, diabetes mellitus, chronic kidney disease, hyperlipidemia, parotid neoplasm s/p resection, and prostate cancer tx with radioactive seeds who presented to the ER in [place] on 11/23/18 complaining of right lower quadrant pain. CT of abd/pelvis showed right ureteral calculus appearing more prominent than on comparison study of 11/22/2018. Mild right hydronephrosis was again noted and he was admitted for obstructive uropathy. Obstructive Uropathy -consult to urology - plan for urinary stent placement today, D/W Dr. Ly -NPO except medications -Morphine 2 mg IV q3h PRN pain UTI -UA consistent with UTI; lactic acid normal at 0.8, WBC chronically elevated and is 25.3 on admission which appears stable -WBC 19 -Antibiotic: Ceftriaxone 1 g IV every 24 hours -Await urine cultures and follow results-pending Leukocytosis, this appears to be chronic going back to 2018. Etiology unclear Does have a UTI Continue to monitor CBC Acute on chronic renal failure -BUN 35, creatinine 3.10, estimated GFR 19 -slightly worse when compared to yesterday's labs -Gentle IV fluid hydration with normal saline at 42 cc/h -cautiously hydrate as patient has chronic lower extremity edema noted on exam today -Avoid nephrotoxins -Monitor renal function -Creatinine 3.20-- Continue with cautious hydration Hypertension -Continue amlodipine -Continue hydralazine -Continue to monitor blood pressure and adjust medications as necessary Diabetes Mellitus -Hold home Lantus while n.p.o. -Accu-Cheks before meals and at bedtime with low-dose NovoLog sliding scale coverage -Hypoglycemia protocol -Monitor trends and blood glucose readings and adjust treatments as indicated Hypoglycemia, blood glucose and BMP 57 Change IV fluids to D5 W at 42 an hour -Monitor blood sugars per protocol -Hypoglycemia protocol DVT prophylaxis--SCDs for now as patient going for stent placed Repeat labs in the morning Code Status: Full code Discussed Condition With: RN, pt, CM Dr. Dheeraj Spencer Discharge Planning: Poss dc tomorrow or Sunday if renal fx better Progress Note: Quality VTE Deep Vein Thrombosis/Pulmonary Embolism Present on Admission: No
[2018-11-24] MEDS ORDERED: Normosol-R pH 7.4 Inj 1,000 ML IV.CONT ONE (17:58)
[2018-11-24] MEDS ORDERED: Lidocaine PF 1% Inj 5 ML Syringe OTHER ONE (17:58)
[2018-11-24] MEDS ORDERED: fentaNYL Citrate Inj 100 MCG/2 ML Ampul ONE (18:36)
--- NOTE | 2018-11-24 19:24 | P.OP ---
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 cystoscope Placement of 6 Fr. 26 CM urinary stent into RT ureter and kidney. Anesthesia: other (Gen LMA) Surgeon: Sarkis Ly MD Estimated blood loss (mL): 0 Pathology: none sent Operation and Findings: The patient was taken into the urology suite, placed supine on the cystoscopy table, given a general anesthetic with LMA airway. History was positioned on the table for the urological procedure with his legs in stirrups after sequential compression devices had been placed on his lower legs and connected to the pump. IV Rocephin was given. A Betadine prep was then given to the external genitalia, perineum, medial thighs, and suprapubic area up to the umbilicus. 2 timeouts were done, first a patient timeout to identify the correct patient, correct side, correct procedure, surgeon, medications and allergies etc. Then a fire safety timeout was done. A 20 Welsh cystoscope was passed under direct vision using a 30 degree lens up through the urethra, encountering a stricture in the proximal bulbar urethra, dilating the stricture with the cystoscope. The prostate is definitely obstructing with lateral lobes pressing together in the midline. There is no significant posterior middle lobe. The bladder interior was then visualized using a 70 degree lens. The bladder wall shows moderate muscular trabeculation without cellules and without diverticula. No bladder cancers, lesions, or hypervascularity were noted. There was a small irregular yellow stone fragment lying in the bladder floor. The trigone was normal and both ureteral orifices were single and in the normal and topical location. Switching back to the 30 degree lens a 5 Welsh open-ended ureteral catheter was placed just inside the right ureteral orifice. Through the ureteral catheter a Sensor guidewire was passed without any difficulty all the way up into the kidney. It was visualized fluoroscopically. The upper end of the guidewire was seen to coil in the kidney. The ureteral catheter was then removed over the guidewire. Over the guidewire a 6 Welsh, 26 cm length ureteral stent was passed into the right kidney without any difficulty. The upper end of the stent was seen to coil inside the kidney. The lower end of the stent was positioned at the appropriate black kelby on the distal end of the stent. The pullout string was then removed. The guidewire was then removed. The lower end of the stent was then seen to coil inside the bladder. It was visualized both cystoscopically and fluoroscopically. The bladder was drained of irrigating fluid. The foreskin was replaced to its normal anatomical location. The patient tolerated the procedure well without any surgical or anesthetic complications and he was found to be stable in the recovery room. Plan is to keep patient in the hospital overnight under medical observation and he will be discharged tomorrow by the hospitalist if he is medically stable. Urological follow-up with his urologist, Dr. Mott.
[2018-11-25] MEDS: hydrALAZINE 50 MG Tablet PO SCH ×3 (03:18→13:53)
[2018-11-25] MEDS: Sod Chloride 0.9% Inj 1,000 ML IV.CONT SCH ×2 (04:19→10:17)
[2018-11-25 07:20] LABS: Hematocrit 34.1 % (39.0-51.0); Hemoglobin 11.6 gm/dL (13.0-17.0); Mean Corpuscular HGB Conc 33.9 % (32.0-36.0); Mean Corpuscular Hemoglobin 32.5 pg (27.0-34.0); Mean Corpuscular Volume 95.7 fL (80.0-100.0); Mean Platelet Volume 9.2 fL (7.0-11.0); Platelet Count 332 th/mm3 (150-450); Red Blood Count 3.56 mil/mm3 (4.50-5.90); Red Cell Distribution Width 16.2 % (11.6-17.2); White Blood Count 17.5 th/mm3 (4.0-11.0)
[2018-11-25 07:50] LABS: Calcium 7.5 mg/dL (8.5-10.1); Carbon Dioxide 23.2 meq/L (21.0-32.0); Potassium 4.3 meq/L (3.5-5.1)
[2018-11-25] MEDS: Insulin NovoLOG Aspart Correctional Sugar Inj SQ SCH ×2 (08:08→12:32)
[2018-11-25] MEDS: Phenytoin 50 MG Chewable Tablet PO SCH (08:30)
[2018-11-25] MEDS: amLODIPine 10 MG Tablet PO SCH (08:30)
[2018-11-25] MEDS: Budesonide-Formoterol 160/4.5 MCG 6 GM Inhaler INH SCH (08:30)
[2018-11-25] MEDS: Dextrose 5% in Water Inj 1,000 ML IV.CONT SCH ×2 (10:16→10:17)
[2018-11-25 13:41] VITALS: BP 130/62; PULSE 91; RESP 19; TEMP 98.5; O2SAT 93
--- NOTE | 2018-11-25 14:01 | P.PNIM ---
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 Voiding okay. No dysuria. No fever. No chest pain, shortness of breath. Had cystoscopy yesterday with stent placement , tolerated well. Anxious to go home. Informed about renal function, indicates that he has appointment to follow-up with his urologist already. in room. Discussed presence of persistent leukocytosis for the last 2 years, aware. Patient has never seen a vocational rehab consultant. Denies any history of malignancy Physical Exam Vital signs: Vital Signs 11/24/18 15:58 11/24/18 19:05 11/24/18 19:15 Temperature 98.9 F 97.5 F L Pulse Rate 93 H 81 80 Respiratory Rate 18 12 14 Blood Pressure 156/70 H 121/60 115/55 L Pulse Oximetry 91 L 92 L 91 L 11/24/18 19:30 11/24/18 20:00 11/25/18 00:00 Temperature 97.8 F 98.6 F 98.8 F Pulse Rate 80 103 H 102 H Respiratory Rate 20 18 18 Blood Pressure 114/58 L 145/65 H 141/63 H Pulse Oximetry 92 L 93 L 90 L 11/25/18 04:00 11/25/18 04:39 11/25/18 08:00 Temperature 98.2 F Pulse Rate 92 H 85 80 Respiratory Rate 17 Blood Pressure 136/63 Pulse Oximetry 96 11/25/18 08:15 11/25/18 11:39 Temperature 98.7 F 98.5 F Pulse Rate 83 91 H Respiratory Rate 18 19 Blood Pressure 143/65 H 130/62 Pulse Oximetry 95 93 L Intake & Output 11/24/18 11/25/18 11/25/18 18:59 06:59 18:59 Intake Total 940 / 940 975 / 975 1000 / 1000 Output Total 250 / 250 Balance 940 / 940 725 / 725 1000 / 1000 Weight 84.6 kg Intake: IV 100 / 100 1000 / 1000 D5W Inj 1,000 ML @ 42 mls/hr IV 1000 / 1000 .CONT .[id number] [facility] Rx#:[id number] Rocephin Inj 1,000 MG In NS Inj 100 / 100 100 ML @ 200 mls/hr IV.SIG Q24H [facility] Rx#:[id number] Oral 840 / 840 575 / 575 Oral Supplement 0 / 0 Anesthesia Amount 400 / 400 Output: Urine 250 / 250 Other: # Voids 2 Date of Last Bowel Movement 11/22/18 11/23/18 # Bowel Movements 0 Narrative: GENERAL: This is a very pleasant elderly male patient, in no apparent distress. SKIN: No rashes. Cool and dry. HEAD: Atraumatic. Normocephalic. EYES: No scleral icterus. No injection or drainage. ENT: Nose without bleeding, purulent drainage. Slightly hard of hearing. NECK: Trachea midline. No JVD. CARDIOVASCULAR: Regular rate and rhythm without murmurs, gallops, or rubs. 2+ pitting edema bilateral LE mid olvera down to feet. RESPIRATORY: Clear to auscultation. Breath sounds equal bilaterally. No wheezes , rales, or rhonchi. GASTROINTESTINAL: Abdomen soft, non-tender, nondistended. No guarding. GENITOURINARY: Right flank and CVA tenderness. MUSCULOSKELETAL: Extremities without clubbing, cyanosis. No calf tenderness. NEUROLOGICAL: Awake and alert. Motor and sensory grossly within normal limits. Normal speech. . Results Labs CBC & Chem 7: 11/25/18 06:38 11/25/18 06:38 Labs: Microbiology 11/23/18 17:10 Blood - Peripheral Aerobic Blood Culture - Preliminary No growth in 2 days 11/23/18 17:10 Blood - Peripheral Anaerobic Blood Culture - Preliminary No growth in 2 days 11/23/18 17:05 Blood - Peripheral Aerobic Blood Culture - Preliminary No growth in 2 days 11/23/18 17:05 Blood - Peripheral Anaerobic Blood Culture - Preliminary No growth in 2 days 11/23/18 14:52 Clean Catch Urine Urine Culture - Final <10,000 cfu/mL mixed gram positive audi - no further workup Procedures Procedures: Date of procedure: 11/24/18 Procedure: Cystoscopy Dilation of bulbous urethral stricture with 20 Fr. cystoscope Placement of 6 Fr. 26 CM urinary stent into RT ureter and kidney. Assessment and Plan (1) Renal colic on right side: Code(s): N23 - Unspecified renal colic Status: Acute Onset Date: ~11/23/18 (2) Hydronephrosis with renal calculous obstruction: Code(s): N13.2 - Hydronephrosis with renal and ureteral calculous obstruction Status: Acute Onset Date: ~11/23/18 (3) Calculus, ureteral: Code(s): N20.1 - Calculus of ureter Status: Acute Onset Date: ~11/23/18 Plan Mr. Solares is a very pleasant 88 y/o male with a history of hypertension, diabetes mellitus, chronic kidney disease, hyperlipidemia, parotid neoplasm s/p resection, and prostate cancer tx with radioactive seeds who presented to the ER in [place] on 11/23/18 complaining of right lower quadrant pain. CT of abd/pelvis showed right ureteral calculus appearing more prominent than on comparison study of 11/22/2018. Mild right hydronephrosis was again noted and he was admitted for obstructive uropathy. Obstructive Uropathy -consult to urology -appreciate Dr. Ly's input -11/24 S/P Cystoscopy Dilation of bulbous urethral stricture with 20 Fr. cystoscope Placement of 6 Fr. 26 CM urinary stent into RT ureter and kidney. --Morphine 2 mg IV q3h PRN pain -cleared for dc, can f/u as OP with Dr. Mott UTI -UA consistent with UTI; lactic acid normal at 0.8, WBC chronically elevated and is 25.3 on admission which appears stable -WBC 19 --17.5 -Antibiotic: Ceftriaxone 1 g IV every 24 hours -Blood cultures negative Urine culture mixed gram-positive less than 100,000 -We will discharge without need for any antibiotics Leukocytosis, this appears to be chronic going back to 2018. Etiology unclear Does have a UTI, but pt. doesn't appear clinical septic d/w pt and , both aware but pt. has not had work up. They are both agreeable with follow-up with hematology as outpatient. Acute on chronic renal failure -Creatinine remaining same, -Was given IV fluid hydration -Avoid nephrotoxins -Monitor renal function -Creatinine 3.29 today, passing urine better. -Was given lab slip to repeat BMP in 3 days, instructed to avoid NSAIDs. Hypertension -Continue amlodipine -Continue hydralazine -Continue to monitor blood pressure and adjust medications as necessary Diabetes Mellitus -Held home Lantus while n.p.o. -Accu-Cheks before meals and at bedtime with low-dose NovoLog sliding scale coverage -Hypoglycemia protocol -Monitor trends and blood glucose readings and adjust treatments as indicated Hypoglycemia, blood glucose and BMP 57 given D5 W at 42 an hour -Monitor blood sugars per protocol -Hypoglycemia protocol -better today, eating now DVT prophylaxis--SCDs Case management consultation for discharge planning, arrange home health care Discharge home today Follow-up with Dr. Mott next week Follow-up with PCP Follow-up with hematology as outpatient for persistent leukocytosis Heart healthy diet Activity as tolerated Code Status: Full code Discussed Condition With: RN, pt, CM Dr. Esqueda Discharge Planning: DC today with [facility] Progress Note: Quality VTE Deep Vein Thrombosis/Pulmonary Embolism Present on Admission: No
--- NOTE | 2018-11-25 14:04 | P.DCO ---
Diagnosis (1) Renal colic on right side: Status: Acute (2) Hydronephrosis with renal calculous obstruction: Status: Acute (3) Calculus, ureteral: Status: Acute Physical Therapy Order: Evaluate and treat Home Health Nursing Order: Medical education, Signs/symptoms of disease process and Nursing assessment with vital signs Case Management Consult Case Management Consult-Home Health: Yes I have seen patient Luis Solares on 11/25/18. My clinical findings support the need for the requested home health care services because: Deconditioned with increased weakness and Need for psychosocial assistance I certify that my clinical findings support that this patient is homebound because: Unsafe to leave home unassisted and Need for psychosocial assistance
--- NOTE | 2018-11-25 16:07 | P.DS ---
DS: Providers Date of admission: 11/23/18 16:27 Primary care physician: Maverick Trimble DO Attending physician on admission: Han Esqueda Consults: 11/23/18 16:46 Consult to Urology Routine Consulting Provider: Sarkis Ly Reason for Consultation: hydronephrosis Notified:: Service Spoke with:: steven Date Notified:: 11/23/18 Time Notified:: 16:58 Ordering Provider: CHINYERE Attending physician on discharge: Han Esqueda Discharging clinician: Hailey Pizarro Anticipated date of discharge: 11/25/18 Brief History from admission: Mr. Solares is a very pleasant 88 y/o male with a history of hypertension, diabetes mellitus, chronic kidney disease, hyperlipidemia, parotid neoplasm s/p resection, and prostate cancer tx with radioactive seeds who presented to the ER in [place] on 11/23/18 complaining of right lower quadrant pain. He had also been seen on 11/22/18 for the same pain but improved in ED after IV morphine given and decided to go home. Upon return to ED, CT of abd/pelvis was done and he was again found to have right ureteral calculus but it appeared more prominent than on comparison study of . Mild right hydronephrosis was again noted and he was admitted for obstructive uropathy. The patient is seen in his hospital room. He reports having severe right-sided flank pain that is sharp and relieved with as needed IV morphine. He denies any recent fever, chills, shortness of breath, chest pain, nausea, or vomiting. He reports constipation yesterday followed by diarrhea with neither problem being experienced today. Reports chronic LE edema. DS: Diagnosis Discharge Diagnosis (1) Renal colic on right side: Status: Acute (2) Hydronephrosis with renal calculous obstruction: Status: Acute (3) Calculus, ureteral: Status: Acute DS: Summary Mr. Solares is a very pleasant 88 y/o male with a history of hypertension, diabetes mellitus, chronic kidney disease, hyperlipidemia, parotid neoplasm s/p resection, and prostate cancer tx with radioactive seeds who presented to the ER in [place] on 11/23/18 complaining of right lower quadrant pain. CT of abd/pelvis showed right ureteral calculus appearing more prominent than on comparison study of 11/22/2018. Mild right hydronephrosis was again noted and he was admitted for obstructive uropathy. Obstructive Uropathy -Patient started on IV fluids, urology was consulted. Cystoscopy was recommended -11/24 S/P Cystoscopy Dilation of bulbous urethral stricture with 20 Fr. cystoscope Placement of 6 Fr. 26 CM urinary stent into RT ureter and kidney. --Morphine 2 mg IV q3h PRN pain -Voiding improved, minimal right flank pain -cleared for dc, can f/u as OP with Dr. Mott UTI -UA consistent with UTI; lactic acid normal at 0.8, WBC chronically elevated and is 25.3 on admission which appears stable -WBC 19 --17.5 -Antibiotic: Ceftriaxone 1 g IV every 24 hours given -Blood cultures negative Urine culture mixed gram-positive less than 100,000 -We discharged without need for any antibiotics Leukocytosis, this appears to be chronic going back to 2018. Etiology unclear Does have a UTI, but pt. doesn't appear clinical septic d/w pt and , both aware but pt. has not had work up. They are both agreeable with follow-up with hematology as outpatient. Acute on chronic renal failure -Creatinine remaining same, -Was given IV fluid hydration -Avoid nephrotoxins -Monitor renal function -Creatinine 3.29 today, passing urine better. -Was given lab slip to repeat BMP in 3 days, instructed to avoid NSAIDs. Hypertension -Continued amlodipine -Continued hydralazine -Continued to monitor blood pressure and adjust medications as necessary -BP remained stable Diabetes Mellitus -Held home Lantus while n.p.o. -Accu-Cheks before meals and at bedtime with low-dose NovoLog sliding scale coverage -Hypoglycemia protocol -Monitored trends and blood glucose readings and adjusted treatments as indicated Hypoglycemia, blood glucose and BMP 57 11/24 given D5 W at 42 an hour -Monitor blood sugars per protocol -Hypoglycemia protocol -better today, eating now Pt. stable, tolerated procedure well, cleared per Dr Ly Discharge home with [facility] CM consulted Instructed to: Follow-up with Dr. Mott next week Follow-up with PCP Follow-up with hematology as outpatient for persistent leukocytosis Heart healthy diet Activity as tolerated Code Status: Full code Time Spent with Patient Total time spent providing and/or coordinating discharge services: 45 Greater than 30 minutes Status at Discharge Functional status at discharge: independent ambulation Overall status at discharge: patient is back to baseline Quality: VTE Deep Vein Thrombosis/Pulmonary Embolism Present on Admission: No Results Procedures completed during hospitalization: Date of procedure: 11/24/18 Procedure: Cystoscopy Dilation of bulbous urethral stricture with 20 Fr. cystoscope Placement of 6 Fr. 26 CM urinary stent into RT ureter and kidney. Labs on day of discharge: Labs from last 24 hours 11/25/18 11/25/18 11/25/18 11:44 08:07 06:38 WBC RBC Hgb Hct MCV MCH MCHC RDW Plt Count MPV Sodium 140 Potassium 4.3 Chloride 107 Carbon Dioxide 23.2 Anion Gap 10 BUN 46 H Creatinine 3.29 H Estimated GFR 18 L POC Glucose 145 H 115 H Random Glucose 127 H Calcium 7.5 L 11/25/18 11/24/18 11/24/18 06:38 20:45 19:16 WBC 17.5 H RBC 3.56 L Hgb 11.6 L Hct 34.1 L MCV 95.7 MCH 32.5 MCHC 33.9 RDW 16.2 Plt Count 332 MPV 9.2 Sodium Potassium Chloride Carbon Dioxide Anion Gap BUN Creatinine Estimated GFR POC Glucose 103 69 Random Glucose Calcium Preliminary micro results at discharge 11/23/18 17:10 Aerobic Blood Culture - Preliminary Blood - Peripheral No growth in 2 days Anaerobic Blood Culture - Preliminary No growth in 2 days 11/23/18 17:05 Aerobic Blood Culture - Preliminary Blood - Peripheral No growth in 2 days Anaerobic Blood Culture - Preliminary No growth in 2 days Impressions ITS Impressions Abdomen/Pelvis CT 11/23/18 13:30 CONCLUSION: 1. 1.0 x 0.4 cm proximal right ureteral calculus just below the ureteropelvic junction. This appears more prominent than on the comparison study of 2018. May represent migration of one of the previously seen renal pelvis calculi in combination with previously seen proximal right ureteral calculus. There is a calculus in the lower portion of the right renal pelvis on today's scan along with lower pole calculi in the right kidney. Mild right hydronephrosis is unchanged. 2. Mild splenomegaly unchanged. 3. Small gallstones at the dependent portion of the gallbladder. Chest X-Ray 11/23/18 16:11 CONCLUSION: The lungs are clear. Discharge Plan Discharge Disposition Patient Disposition: Discharge Home Discharge Condition Condition: Stable Discharge Order Discharge Orders: Discharge Order (Routine); Ordered 11/25/18 Ordered By: Hailey Pizarro Urology Clear for Discharge (Routine); Ordered 11/25/18 Ordered By: Sarkis Ly Discharge Details Anticipated Discharge Date: 11/25/18 Physicians Team Primary Care Provider: Maverick Trimble Attending Provider: Han Esqueda Other Providers: Sarkis Ly Rxs /Orders / Referrals /Forms Prescriptions: Continue insulin glargine [Lantus U-100 Insulin] 100 unit/mL Solution 10 unit SUBCUT DAILY RF: 0 lovastatin 10 mg Tablet 10 mg PO DAILY RF: 0 aspirin [Aspirin Low Dose] 81 mg Tablet,Delayed Release (Dr/Ec) 81 mg PO DAILY RF: 0 multivitamin with minerals Tablet Extended Release 1 tab PO DAILY RF: 0 amlodipine 10 mg Tablet 10 mg PO DAILY RF: 0 cholecalciferol (vitamin D3) [Vitamin D3] 1,000 unit Capsule 1,000 unit PO DAILY RF: 0 dextran 70-hypromellose [Artificial Tears (PF)] Dropperette 1 drp OPHTHALMIC (EYE) Q12H PRN (Reason: Dry Eye(S)) RF: 0 budesonide-formoterol [Symbicort] 160-4.5 mcg/actuation Hfa Aerosol Inhaler 2 puff INHALATION BID RF: 0 loratadine 10 mg Capsule 10 mg PO DAILY RF: 0 clonidine HCl [Catapres] 0.1 mg Tablet 0.1 mg PO Q6H PRN (Reason: Sbp>180, Dbp>100) Qty: 30 RF: 0 phenytoin [Dilantin Infatabs] 50 mg Tablet,Chewable 150 mg PO BID 30 Days Qty: 180 RF: 5 tamsulosin 0.4 mg Capsule 0.4 mg PO DAILY Qty: 30 RF: 11 hydralazine 50 mg Tablet 100 mg PO TID 30 Days Qty: 180 RF: 5 insulin aspart U-100 100 unit/mL Cartridge 1 sliding scale dose SUBCUT UD 30 Days RF: 11 Ambulatory Orders / Order Sets / DME: Basic Metabolic Panel (Routine) Timeframe: 3 Days Location: Determined by Patient Ordered By: Hailey Pizarro Referrals: [facility] [Outside] - See Instructions (follow up with hematology as outpatient for persistent leukocytosis. ) Urologist [Outside] - See Instructions (Follow up with Dr. Mott) [facility]ician [facility] [Family Provider] - See Instructions Trimble,Maverick W, DO [Primary Care Provider] - See Instructions Post Discharge Care Plan Care Plan Goals: Your Health Problems: Goals to Promote Your Health: * To prevent worsening of your condition * To maintain your health at the optimal level Directions to Meet Your Goals: * Take your medications as prescribed * Follow your dietary instruction * Follow activity as directed * Keep your appointments as scheduled * Take your immunizations and boosters as scheduled * If your symptoms worsen call your PCP * If no PCP go to Urgent Care or Emergency Room Smoking is dangerous to your health. Avoid second hand smoke. You may reach the 24-hour crisis hotline for domestic abuse at . Status ED Status: Left Department
== END 2018-11-25 16:00 | disposition home health service (06) | DRG 660 ==
LOC: PHED 13:08 → PHEDH 16:27 → N07 18:39
PROVIDERS: ADMIT Hospitalist; ATTEND Hospitalist
DX: E11.22 Type 2 diabetes mellitus with diabetic chronic kidney disease; N17.9 Acute kidney failure, unspecified; Z83.3 Family history of diabetes mellitus; N13.6 Pyonephrosis; Z79.51 Long term (current) use of inhaled steroids; N40.1 Benign prostatic hyperplasia with lower urinary tract symptoms; Z79.82 Long term (current) use of aspirin; Z85.46 Personal history of malignant neoplasm of prostate; Z92.3 Personal history of irradiation; R60.0 Localized edema; Z87.891 Personal history of nicotine dependence; R53.1 Weakness; E78.5 Hyperlipidemia, unspecified; Z79.899 Other long term (current) drug therapy; N13.8 Other obstructive and reflux uropathy; N23 Unspecified renal colic; J44.9 Chronic obstructive pulmonary disease, unspecified; N18.9 Chronic kidney disease, unspecified; E11.649 Type 2 diabetes mellitus with hypoglycemia without coma; I12.9 Hypertensive chronic kidney disease with stage 1 through stage 4 chronic kidney disease, or unspecified chronic kidney disease; K59.00 Constipation, unspecified; Z79.4 Long term (current) use of insulin; Z88.8 Allergy status to other drugs, medicaments and biological substances
CPT/HCPCS: 71010; 71045; 74176; 80048; 80053; 81001; 82948; 82962; 83605; 83690; 83735; 85025; 85027; 85610; 85730; 87040; 87086; 90760; 90761; 90774; 90775; 93005; 96360; 96361; 96374; 96375; 97110; 97116; 99284; 99285; C1769; C8952; J0696; J2270; J2405; J2704; J3010; J7030; J7040; J7070; Q9963